=== PATIENT | male | born 1980 | race Two or more races ===

== ENCOUNTER 2021-01-21 12:21 | Inpatient (IN) | payer OTHER, SELFPAY ==
[2021-01-21] VITALS (8 sets, daily range): BP systolic 112–148; BP diastolic 72–83; PULSE 81–110; RESP 20–40; TEMP 36.8–38.8; O2SAT 90–94; BMI 33.5
--- NOTE | 2021-01-21 | ECG_ITS ---
Test Reason : chest pain Blood Pressure : / mmHG Vent. Rate : 088 BPM Atrial Rate : 088 BPM P-R Int : 162 ms QRS Dur : 088 ms QT Int : 370 ms P-R-T Axes : 032 003 022 degrees QTc Int : 447 ms Normal sinus rhythm Normal ECG When compared with ECG of 21-JAN-2021 15:35, No significant change was found Referred By: Olaf Aceves Electronically Signed By:ZARA MCKEON MD
--- NOTE | ~2021-01-21 | XR_ITS ---
EXAMINATION: XR CHEST CLINICAL INFORMATION: Chest pain COMPARISON: CT chest 01/21/2021 TECHNIQUE: Frontal view of the chest was obtained. FINDINGS: There is patchy groundglass density seen in bilateral midlung consistent with infiltrates. There is dense consolidation in the left lower lobe retrocardiac area. Heart size is borderline enlarged with normal pulmonary vascularity. No gross bony abnormality seen. XR/XR chest 1V IMPRESSION: Bilateral patchy groundglass infiltrates and dense left lower lobe consolidation.
--- NOTE | ~2021-01-21 | CT_ITS ---
EXAMINATION: CT ANGIOGRAM OF THE CHEST WITH AND WITHOUT CONTRAST (CT PULMONARY ANGIOGRAM FOR PE) CLINICAL INFORMATION: Reason for Exam SOB, hemoptysis, positive COVID COMPARISON: None TECHNIQUE: Prior to contrast administration, noncontrast localization images were obtained. Subsequently, multidetector volumetric imaging was performed from the thoracic inlet to below the diaphragms following the administration of 71 mL Omnipaque 350 intravenous contrast. No contrast reaction reported Sagittal, coronal, and MIP oblique sagittal reformatted images were obtained on the CT workstation, uploaded to PACS, and reviewed. This CT examination was performed using dose optimization techniques as appropriate, variously including the following: *Automated exposure control *Adjustment of mA and/or kV according to patient size (this includes techniques or standardized protocols for targeted exams where dose is matched to indication/reason for exam; i.e. extremities or head) *Use of iterative reconstruction technique Total exam dose-length product 468 mGy-cm FINDINGS: QUALITY OF STUDY/CONTRAST BOLUS: Satisfactory. PULMONARY ARTERIES: No central or segmental pulmonary emboli. THORACIC AORTA: No aneurysm or dissection. LUNG: The central airways are patent. Patchy groundglass opacities are seen throughout both lungs. There is a small left pleural effusion with a more dense consolidation in the left lower lobe. Associated air bronchograms are noted. There are trace loculated gas seen within the left pleural effusion. This is consistent with trace left-sided pneumothorax.. MEDIASTINUM: Normal heart size. No pericardial effusion. No hilar or mediastinal lymphadenopathy. No evidence of septal bowing or right heart strain. CHEST WALL/AXILLA: No axillary or internal mammary lymphadenopathy. OSSEOUS STRUCTURES: No acute or suspicious osseous abnormality. UPPER ABDOMEN: Low-attenuation of the liver suggests hepatic steatosis. No reflux of contrast into the hepatic veins to suggest elevated right heart pressures. CT/CT angio chest PE protocol IMPRESSION: No pulmonary embolism. Patchy groundglass opacities bilaterally are consistent with the clinical history of Covid. There is a more dense left lower lobe consolidation with associated pleural effusion. Trace pneumothorax on the left as well. This critical result was discussed with Jeffery Garcia NP by telephone at 01/21/2021 3:53 PM and it was ascertained that the content and urgency of the report was understood at the time of direct communication. VTE: negative
--- NOTE | 2021-01-21 12:44 | ED_ITS ---
HPI - SOB/Dyspnea General Chief Complaint: Dyspnea Stated Complaint: DIFF BREATHING Time Seen by Provider: 01/21/21 12:44 Source: patient Mode of arrival: wheelchair Limitations: no limitations History of Present Illness HPI Narrative: 40-year-old male who denies significant past medical or surgical history he presents via triage with his who reports on January 08 he got his 1st dose of pfizer COVID vaccine and on January 13 he was feeling unwell thinking that he might have the side effects from the COVID vaccine however symptoms continued and that day he got tested at the [facility] through the state [facility] spread program and tested positive for COVID-19 along with his spouse. States he has been progressively getting worsening in symptoms of fevers with body aches, chest pain, generalized weakness and some shortness of breath and he has been having sputum with streaks of red blood in it. Otherwise denies any abdominal pain, nausea, vomiting, diarrhea. MD elicited complaint: shortness of breath, cough and chest pain Pertinent past history: other (COVID-19) Onset (ago): day(s) Timing: progressively worsening Severity: severe Exacerbating factors: coughing and other (States he becomes very short of breath with walking) Relieving factors: nothing Associated symptoms: chest pain, pain with inspiration (States he gets pain on the left-sided chest with inspiration) and cough Treatment prior to arrival: other (OTC Tylenol/Motrin last took Motrin this morning) Related Data Home Medications Medication Instructions Recorded Confirmed trazodone 50 - 100 mg PO BEDTIME PRN 01/21/21 01/21/21 Allergies Allergy/AdvReac Type Severity Reaction Status Date / Time tree nut [TREE NUT] Allergy Severe ANAPHYLAXIS Unverified 07/09/20 15:43 [facility] Past Medical History Medical History (Updated 01/21/21 @ 16:29 by Jeffery Garcia NP) No known health problems Social History Social History Smoking Status: Never smoker Use of substances other than those prescribed or required for medical reasons: No Advance Directives: No Advance Directives Information Provided: No Physical Exam Vital Signs: Vital Signs: Last Vital Signs Temp 98.2 F 01/21/21 15:37 Pulse 97 01/21/21 15:37 Resp 30 H 01/21/21 15:37 BP 138/79 01/21/21 15:37 Pulse Ox 92 01/21/21 15:37 Body Mass Index 33.5 Reviewed Const: General: acute distress and ill appearing Nutritional Appearance: overweight Orientation/consciousness: patient oriented x3 HENMT: Head: Yes normal to inspection Ears: hearing grossly normal bilaterally Eyes: General: appearance normal, both eyes and all related structures Visual [place]am[place]: normal visual salamanca by confrontation Neck: Neck: Yes normal visual inspection, No positive Brudzinski's sign, No positive Kernig's sign and No tender Thyroid: Thyroid normal Chest: Chest palpation & inspection: normal inspection of the chest Resp: Effort & Inspection: normal respiratory effort Auscultation: wheezes (Mild forced expiratory) left lower Cardio: Jugular venous distension: no JVD Rate: tachycardic (113) GI: Inspection: Yes normal to inspection Palpation (GI): Soft to palpation Percussion: Yes normal to percussion Auscultation: normal bowel sounds : General: Yes no CVA tenderness Back/Spine/Pelvis: Back: no CVA tenderness Skin: General skin exam: no rashes or lesions noted Neuro: General: patient oriented x3 Extrem: General: Yes normal to inspection Course Course Course Narrative: Review otherwise healthy 40-year-old male denies significant past medical history presenting with shortness of breath/chest pain with hemoptysis described as string like blood in his sputum mostly. He is positive COVID already. Will check labs including COVID certification and CT of the chest rule out pulmonary embolism/infectious pathology. Will treat with albuterol, steroids and symptomatic pain management. He is febrile will treat with Tylenol 975 p.o.. Known COVID, lactic acid blood cultures ordered as well. On room air is at 90% Perks up to 92% on 4 L. Reevaluation(s) Reevaluation #1: Intermittent left-sided chest pain worsening with position and cough his D-dimer is marginal, troponin negative, EKG nondiagnostic. His COVID markers are elevated CTA is pending. Reevaluation #2: Call from [facility] with CT A PE reading No pulmonary embolism. Patchy groundglass opacities bilaterally are consistent with the clinical history of Covid. There is a more dense left lower lobe consolidation with associated pleural effusion. Trace pneumothorax on the left as well. Given these findings case was discussed with weigher and grader Dr. Valle recommended steroids, remdesivir and antibiotic and he will see the patient but recommends admission to hospitalist services and at this time does not warrant ICU admissi on. Consultations Consultation #1: [facility]: No PE, diffuse consolidation consistent with COVID small left pleural effusion as well as small pneumo. Consultation #2: [facility]im Stretching Machine Operator Dr. Valle Consultation #3: Hospitalist Dr. Guido MDM - SOB/Dyspnea Medical Records Attestation: I reviewed the patient's medical records. Lab Data Attestation: I reviewed the patient's lab results. Result diagrams: 01/21/21 13:11 01/21/21 13:11 Labs: Lab Results 01/21/21 01/21/21 01/21/21 Range/Units 13:11 13:11 13:11 WBC 9.3 (4.8-10.8) X10*3/uL RBC 5.34 (4.60-5.80) X10*6/uL Hgb 14.9 (14.0-18.0) g/dl Hct 44.4 (42-52) % MCV 83.1 (80-98) fL MCH 27.9 (27.0-33.0) pg MCHC 33.6 (31.0-36.0) g/dl RDW 12.3 (11.0-16.0) % Plt Count 259 (160-400) X10*3/uL MPV 10.0 (9.4-12.4) fL Immature Gran % (Auto) 0.5 H (0.0-0.4) % Neut % (Auto) 88.2 H (45-73) % Lymph % (Auto) 8.1 L (20-40) % [place] % (Auto) 3.1 (2-11) % Eos % (Auto) 0.0 (0-4) % Baso % (Auto) 0.1 (0-2) % Lymph # (Auto) 0.8 L (1.2-4.9) X10*3/uL [place] # (Auto) 0.3 (0.1-1.2) X10*3/uL Eos # (Auto) 0.0 (0.0-0.4) X10*3/uL Baso # (Auto) 0.0 (0.0-0.2) X10*3/uL Abs Immat Gran (auto) 0.05 H (0.00-0.03) X10*3/uL Absolute Neuts (auto) 8.2 (2.0-8.3) X10*3/uL Absolute Nucleated RBC 0.000 (0.0-0.012) X10*3/uL Nucleated RBC % (auto) 0.0 (0.0-0.2) /100WBC PT 15.7 H (10.8-13.0) SEC INR 1.3 H (0.9-1.1) APTT 32.1 (24.1-38.0) SEC D-Dimer 584 NG/ML Sodium 134 L (135-145) mmol/L Potassium 4.6 (3.3-5.1) mmol/L Chloride 92 L (96-108) mmol/L Carbon Dioxide 28 (22-29) mmol/L Anion Gap 19 (12-20) BUN 14 (9-16) mg/dL Creatinine 0.83 (0.5-1.4) mg/dL Estim Creat Clear Calc 145.4 Estimated GFR > 60 Random Glucose 297 H (60-115) mg/dL Lactic Acid (0.5-2.0) mmol/L Calcium 8.5 (8.4-10.2) mg/dL Ferritin 3552 H (20-250) ng/mL Total Bilirubin 0.5 (0.0-1.0) mg/dL AST 36 (5-37) U/L ALT 38 (0-40) U/L Alkaline Phosphatase 61 (39-117) U/L Lactate Dehydrogenase 438 H (118-273) U/L Troponin I High Sens (<3.5-35.0) ng/L C-Reactive Protein 25.68 H (< or = 0.50) mg/dL B-Natriuretic Peptide (<100) pg/mL Total Protein 7.1 (6.5-8.0) g/dL Albumin 3.7 (3.5-5.0) g/dL Procalcitonin ng/mL 01/21/21 01/21/21 01/21/21 Range/Units 13:11 13:11 13:11 WBC (4.8-10.8) X10*3/uL RBC (4.60-5.80) X10*6/uL Hgb (14.0-18.0) g/dl Hct (42-52) % MCV (80-98) fL MCH (27.0-33.0) pg MCHC (31.0-36.0) g/dl RDW (11.0-16.0) % Plt Count (160-400) X10*3/uL MPV (9.4-12.4) fL Immature Gran % (Auto) (0.0-0.4) % Neut % (Auto) (45-73) % Lymph % (Auto) (20-40) % [place] % (Auto) (2-11) % Eos % (Auto) (0-4) % Baso % (Auto) (0-2) % Lymph # (Auto) (1.2-4.9) X10*3/uL [place] # (Auto) (0.1-1.2) X10*3/uL Eos # (Auto) (0.0-0.4) X10*3/uL Baso # (Auto) (0.0-0.2) X10*3/uL Abs Immat Gran (auto) (0.00-0.03) X10*3/uL Absolute Neuts (auto) (2.0-8.3) X10*3/uL Absolute Nucleated RBC (0.0-0.012) X10*3/uL Nucleated RBC % (auto) (0.0-0.2) /100WBC PT (10.8-13.0) SEC INR (0.9-1.1) APTT (24.1-38.0) SEC D-Dimer NG/ML Sodium (135-145) mmol/L Potassium (3.3-5.1) mmol/L Chloride (96-108) mmol/L Carbon Dioxide (22-29) mmol/L Anion Gap (12-20) BUN (9-16) mg/dL Creatinine (0.5-1.4) mg/dL Estim Creat Clear Calc Estimated GFR Random Glucose (60-115) mg/dL Lactic Acid 1.9 (0.5-2.0) mmol/L Calcium (8.4-10.2) mg/dL Ferritin (20-250) ng/mL Total Bilirubin (0.0-1.0) mg/dL AST (5-37) U/L ALT (0-40) U/L Alkaline Phosphatase (39-117) U/L Lactate Dehydrogenase (118-273) U/L Troponin I High Sens 3.6 (<3.5-35.0) ng/L C-Reactive Protein (< or = 0.50) mg/dL B-Natriuretic Peptide < 10 (<100) pg/mL Total Protein (6.5-8.0) g/dL Albumin (3.5-5.0) g/dL Procalcitonin 1.71 ng/mL ECG Data Interpretation: EKG 1. Sinus tachycardia Rate 113 Possible Left atrial enlargement Left ventricular hypertrophy Inferior infarct , age undetermined Abnormal ECG No previous ECGs available EKG 2. Normal sinus rhythm Rate 98 LAE AR interval 152 QT/QTC 358 or [address] segment changes No significant change from previous Discharge Plan Discharge Clinical Impression: COVID-19, Pleural effusion, Pneumothorax Patient Disposition: Admitted As Inpatient Prescriptions: No Action trazodone 100 mg Tablet 50 - 100 mg PO BEDTIME PRN (Reason: Insomnia) RF: 0
--- NOTE | 2021-01-21 13:02 | ECG_ITS ---
Test Reason : DYSPNEA Blood Pressure : / mmHG Vent. Rate : 113 BPM Atrial Rate : 113 BPM P-R Int : 152 ms QRS Dur : 078 ms QT Int : 336 ms P-R-T Axes : 034 -08 027 degrees QTc Int : 460 ms Sinus tachycardia Possible Left atrial enlargement Left ventricular hypertrophy Inferior infarct , age undetermined Abnormal ECG No previous ECGs available Referred By: Jeffery Garcia Electronically Signed By:ZARA MCKEON MD
[2021-01-21 13:18] LABS: MANUAL DIFF FLAG NO
[2021-01-21 13:20] LABS: Basophils Percent Auto 0.1 % (0-2); Hematocrit 44.4 % (42-52); Hemoglobin 14.9 g/dl (14.0-18.0); Imm Gran Abs Auto 0.05 X10*3/uL (0.00-0.03); Imm Gran Pct Auto 0.5 % (0.0-0.4); Lymphocytes Absolute Auto 0.8 X10*3/uL (1.2-4.9); Lymphocytes Percent Auto 8.1 % (20-40); Mean Corpuscular HGB Conc 33.6 g/dl (31.0-36.0); Mean Corpuscular Hemoglobin 27.9 pg (27.0-33.0); Mean Corpuscular Volume 83.1 fL (80-98); Monocytes Absolute Auto 0.3 X10*3/uL (0.1-1.2); Monocytes Percent Auto 3.1 % (2-11); Neutrophils Absolute Auto 8.2 X10*3/uL (2.0-8.3); Neutrophils Percent Auto 88.2 % (45-73); Platelet Count 259 X10*3/uL (160-400); Red Blood Count 5.34 X10*6/uL (4.60-5.80); Red Cell Distribution Width 12.3 % (11.0-16.0); White Blood Count 9.3 X10*3/uL (4.8-10.8)
[2021-01-21 13:25] LABS: INTERNATIONAL NORM RATIO 1.3 (0.9-1.1); Prothrombin Time 15.7 SEC (10.8-13.0)
[2021-01-21 13:28] LABS: D Dimer 584 NG/ML; Partial Thromboplastin Time 32.1 SEC (24.1-38.0)
[2021-01-21] MEDS: Acetaminophen 325 MG TABLET 975 MG PO (13:31)
[2021-01-21] MEDS: 0.9 % Sodium Chloride 500 ML IV (13:32)
[2021-01-21 13:52] LABS: Lactic Acid 1.9 mmol/L (0.5-2.0)
[2021-01-21 13:59] LABS: Alanine Aminotransferase 38 U/L (0-40); Albumin Level 3.7 g/dL (3.5-5.0); Alkaline Phosphatase 61 U/L (39-117); Anion Gap 19 (12-20); Aspartate Amino Transferase 36 U/L (5-37); B Type Natriuretic Peptide < 10 pg/mL (<100); Bilirubin Total 0.5 mg/dL (0.0-1.0); Blood Urea Nitrogen 14 mg/dL (9-16); C Reactive Protein 25.68 mg/dL (< or = 0.50); Calcium 8.5 mg/dL (8.4-10.2); Carbon Dioxide 28 mmol/L (22-29); Chloride 92 mmol/L (96-108); Creatinine Clr Calc Pharmacy 145.4; Estimated Glomerular Filt Rate > 60; Glucose Random 297 mg/dL (60-115); Lactate Dehydrogenase 438 U/L (118-273); Potassium 4.6 mmol/L (3.3-5.1); Sodium 134 mmol/L (135-145); Total Protein 7.1 g/dL (6.5-8.0); Troponin-I High Sensitivity 3.6 ng/L (<3.5-35.0)
[2021-01-21 14:25] LABS: Procalcitonin 1.71 ng/mL
[2021-01-21 15:00] LABS: Ferritin 3552 ng/mL (20-250)
[2021-01-21] MEDS: iohexoL 350 MG/ML 75 ML INFUS..BTL IV (15:24)
--- NOTE | 2021-01-21 15:39 | ECG_ITS ---
Test Reason : DYSPNEA Blood Pressure : / mmHG Vent. Rate : 098 BPM Atrial Rate : 098 BPM P-R Int : 152 ms QRS Dur : 084 ms QT Int : 358 ms P-R-T Axes : 040 006 031 degrees QTc Int : 457 ms Normal sinus rhythm Possible Left atrial enlargement Possible Inferior infarct (cited on or before 21-JAN-2021) Abnormal ECG When compared with ECG of 21-JAN-2021 13:23, No significant change was found Referred By: Olaf Aceves Electronically Signed By:ZARA MCKEON MD
--- NOTE | 2021-01-21 15:39 | PC.NURSE ---
pt back from ct, reports sever/stabbing pain in the left upper abd area/chest area, pain comes and goes, vs stable at this time, bp 138/79, hr 100, sating at 90-92% on 3l, repeated ekg obtained
[2021-01-21] MEDS: cefTRIAXone sodium 1 GM in 0.9 % Sodium Chloride 50 ML IV (16:36)
[2021-01-21] MEDS: ondansetron HCL 4 MG/2 ML VIAL IVPUSH (16:36)
[2021-01-21] MEDS: dexAMETHasone sod phosphate 4 MG/ML VIAL 6 MG IVPUSH (16:36)
[2021-01-21] MEDS: Morphine Sulfate 4 MG/ML CARTRIDGE IVPUSH (16:37)
--- NOTE | 2021-01-21 17:55 | PM.IMHP ---
History of Present Illness Date of Service: 01/21/21 Chief Complaint: Shortness of breath due to COVID pneumonia. 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 Poor appetite. Patient said that he had Pfizer vaccine 1st dose on . 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 He has cough with some blood in it sputum aldana. Having fever from last 2-3 days, sweating for seem duration. Denies any abdominal pain or nausea or vomiting or diarrhea or any focal weakness or numbness. In the emergency room patient-found to have hypoxic and as per ED physician put on oxygen-breathing he says now slightly better, But still has pleuritic discomfort and cough as well as fever. Patient found to have fever of 101.8*f , tachycardic and tachypneic, has lymphopenia as well as elevated ferritin, LDH, C-reactive protein. CTA chest shows: Patchy ground-glass opacities consistent says with the COVID has trace pneumothorax on the left side as well. Also left side consolidation at the base with pleural effusion. In ED: Received Dexamethasone, ceftriaxone azithromycin . 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 Social history: No alcohol or smoking or recreation drug use. Review of Systems Review of Systems: Constitutional: Not in acute distress seems slightly anxious. Respiratory: Has short of breath and cough Cardiovascular: No palpitation or chest pain Abdominal: No nausea or vomiting or abdominal pain . Neuro aldana: No weakness or numbness No fever or chills Skin aldana: No rash or erythema. HEENT: No vision changes or any eye pain or discharge. Please also see HPI. [facility] Medical History Nightmare No known health problems Functional capacity: independent ambulation Social History Household Members: Significant Other Housing: House Smoking Status: Never smoker service: Yes Current occupational status: employed Meds Allergies Allergy/AdvReac Type Severity Reaction Status Date / Time tree nut [TREE NUT] Allergy Severe ANAPHYLAXIS Unverified 07/09/20 15:43 Active Medications: Current Medications Generic Name Dose Route Start Last Admin Trade Name Freq PRN Reason Stop Dose Admin Acetaminophen 650 mg 01/21/21 17:48 Acetaminophen 325 Mg Tablet PO Q6H PRN Pain, Mild (Pain Scale 1-3) Dexamethasone Sodium Phosphate 6 mg 01/22/21 09:00 Dexamethasone Sod Phosphate 4 Mg/Ml Vial IVPUSH DAILY [facility] Famotidine 20 mg 01/22/21 09:00 Famotidine 20 Mg Tablet PO DAILY [facility] Azithromycin 500 mg/ Sodium 250 mls @ 125 mls/hr 01/21/21 17:15 Chloride IV 01/21/21 19:14 ONCE ONE Sodium Chloride 3 ml 01/22/21 00:00 0.9 % Sodium Chloride Flush [address] M[address]ringe IVFLUSH QSHIFT [facility] Trazodone HCl 50 - 100 mg 01/21/21 17:48 Trazodone Hcl 100 Mg Tablet PO BEDTIME PRN Insomnia Home Medications Medication Instructions Recorded Confirmed Last Taken Type trazodone 50 - 100 mg PO BEDTIME PRN 01/21/21 01/21/21 Unknown History Physical Exam Vital Signs and Narrative: Vital Signs: Last Vital Signs Temp 98.2 F 01/21/21 15:37 Pulse 97 01/21/21 15:37 Resp 30 H 01/21/21 15:37 BP 138/79 01/21/21 15:37 Pulse Ox 92 01/21/21 15:37 Body Mass Index 33.5 Physical exam: Constitutional: Noted acute distress, somewhat short of breath. Still able to answer most of the questions Cvs: rrr, [id number] , no murmur res: Grossly fair air entry, diminished at bases left is more than right. No rales or wheezing. abd: no rebound or guarding ,nt, bs present. ext pulses present , no cyanosis neuro: axo3 , nonfocal. Results Labs CBC and Chem 7: 01/26/21 05:28 01/26/21 05:28 Labs: Laboratory Results - last 24 hr 01/21/21 01/21/21 01/21/21 13:11 13:11 13:11 MCV 83.1 MCH 27.9 MCHC 33.6 RDW 12.3 Plt Count 259 MPV 10.0 Immature Gran % (Auto) 0.5 H Neut % (Auto) 88.2 H Lymph % (Auto) 8.1 L [place] % (Auto) 3.1 Eos % (Auto) 0.0 Baso % (Auto) 0.1 Lymph # (Auto) 0.8 L [place] # (Auto) 0.3 Eos # (Auto) 0.0 Baso # (Auto) 0.0 Abs Immat Gran (auto) 0.05 H Absolute Neuts (auto) 8.2 Absolute Nucleated RBC 0.000 Nucleated RBC % (auto) 0.0 PT 15.7 H INR 1.3 H APTT 32.1 D-Dimer 584 Anion Gap 19 Estim Creat Clear Calc 145.4 Estimated GFR > 60 Random Glucose 297 H Lactic Acid Calcium 8.5 Ferritin 3552 H Total Bilirubin 0.5 AST 36 ALT 38 Alkaline Phosphatase 61 Lactate Dehydrogenase 438 H Troponin I High Sens C-Reactive Protein 25.68 H B-Natriuretic Peptide Total Protein 7.1 Albumin 3.7 Procalcitonin 01/21/21 01/21/21 01/21/21 13:11 13:11 13:11 MCV MCH MCHC RDW Plt Count MPV Immature Gran % (Auto) Neut % (Auto) Lymph % (Auto) [place] % (Auto) Eos % (Auto) Baso % (Auto) Lymph # (Auto) [place] # (Auto) Eos # (Auto) Baso # (Auto) Abs Immat Gran (auto) Absolute Neuts (auto) Absolute Nucleated RBC Nucleated RBC % (auto) PT INR APTT D-Dimer Anion Gap Estim Creat Clear Calc Estimated GFR Random Glucose Lactic Acid 1.9 Calcium Ferritin Total Bilirubin AST ALT Alkaline Phosphatase Lactate Dehydrogenase Troponin I High Sens 3.6 C-Reactive Protein B-Natriuretic Peptide < 10 Total Protein Albumin Procalcitonin 1.71 Imaging Radiologist's Impressions: Impressions Chest CTA 01/21/21 13:01 IMPRESSION: No pulmonary embolism. Patchy groundglass opacities bilaterally are consistent with the clinical history of Covid. There is a more dense left lower lobe consolidation with associated pleural effusion. Trace pneumothorax on the left as well. This critical result was discussed with Jeffery Garcia NP by telephone at 01/21/2021 3:53 PM and it was ascertained that the content and urgency of the report was understood at the time of direct communication. VTE: negative Assessment and Plan (1) COVID-19: Status: Acute (2) Pleural effusion: Status: Acute (3) Pneumothorax: Qualifiers: Pneumothorax type: unspecified pneumothorax Qualified Code(s): J93.9 - Pneumothorax, unspecified Status: Acute 1. Acute hypoxemic respiratory failure-secondary to COVID/also has viral sepsis. Continue oxygen support, dexamethasone, id and Pulmonary evaluation since patient has respiratory failure/pneumothorax trace. Blood cultures are pending as well as procalcitonin level Patient was given antibiotic as per ED because patient has dense consolidation in the left lower base with some effusion. Will order CBC BMP and COVID labs for the morning. Evaluation for remdesivir as per ID. 2. Mild hyponatremia: Probably related to poor oral intake oral intake. Diet order and encouraged to eat. Continue to monitor 3. Nightmares: Continue trazodone. DVT prophylaxis with SCDs since patient has hemoptysis intermittent. Patient is full code. (4) Diabetes mellitus, new onset: Status: Acute
[2021-01-21] MEDS: guaiFENesin 100 MG/5 ML LIQUID PO (18:13)
[2021-01-21] MEDS: Azithromycin 500 MG in 0.9 % Sodium Chloride 250 ML 125 MG IV (18:13)
--- NOTE | 2021-01-21 20:34 | PC.NURSE ---
WAITING ON PHARMACY TO BRING REMDESIVIR, NO TECH.
[2021-01-21 21:17] LABS: Appearance Urine CLEAR; Color Urine YELLOW; Glucose Urine UA 500 MG/DL (NEG); Leukocyte Esterase Urine NEG (NEG); Nitrite Urine NEG (NEG); Specific Gravity - Urine 1.025 (1.005-1.025); Urine Blood TRACE (NEG); Urine Ketones >=80 MG/DL (NEG); Urine Protein 2+ MG/DL (NEG-TRACE)
[2021-01-21 21:23] LABS: Bacteria Urine TRACE /LPF; RBC Urine 0 /HPF (0); WBC Urine 0 /HPF (0-4)
[2021-01-21] MEDS: Morphine Sulfate 2 MG/ML CARTRIDGE 1 MG IVPUSH (21:40)
[2021-01-21 21:47] LABS: C Reactive Protein 27.24 mg/dL (< or = 0.50)
--- NOTE | 2021-01-21 21:49 | PM.EVENT ---
Event Note Date of Service: 01/21/21 Event Note: RAPID RESPONSE NOTE: MILL TENDER SECOND OPERATOR WAS CALLED IN AROUND 9:30 P.M. reporting patient had acute chest pain. I went in to examine the patient patient noted to have less sided chest wall pain, reproducible in nature, sharp in nature, vitals stable, saturating at 94%. Breathing comfortably. EKG nonischemic. CT chest showed no evidence of pulmonary embolism but noted COVID pneumonia. Also noted trace left-sided pneumothorax. ICU made aware. Will follow-up with chest x-ray. Patient currently clinically appears stable will continue to monitor. Lidoderm patch for reproducible chest pain. Patient was given morphine. Troponins
[2021-01-21] MEDS: Remdesivir 200 MG in 0.9 % Sodium Chloride 210 ML 105 MG IV (22:31)
[2021-01-22] VITALS (8 sets, daily range): BP systolic 128–144; BP diastolic 73–85; PULSE 71–96; RESP 18–43; TEMP 36–37; O2SAT 88–93; BMI 33.4
[2021-01-22] MEDS: HYDROmorphone HCl 0.5 MG/0.5 ML SYRINGE IVPUSH ×7 (00:10→23:07)
[2021-01-22 00:25] LABS: Troponin-I High Sensitivity 3.5 ng/L (<3.5-35.0)
[2021-01-22] MEDS: 0.9 % Sodium Chloride Flush 3 ML SYRINGE IVFLUSH ×4 (01:07→20:18)
--- NOTE | 2021-01-22 06:36 | MHC.PIE ---
late entry for 2129. p - pt arrived to rm 475 for admission to [facility] via stretcher clutching his Left side of chest yelling in pain states L sided pain constant not reproducible with palpation no radiation.vss color wnl/desai i - rapid response called immediately - vss (see graphics) team arrived at 2132 including Nicolette Acosta RN supv, Dr. Mcmillan, Driss meade RN ANGIOGRAPHY pt kept on stretcher and morphine 1mg iv given @ 2139 with slow gradual relief, 12 lead ekg done as ordered on stretcher - reviewed by Dr. Aceves with no concerns. stat pcxr done on stretcher as well. by 2204 pt transferred via stretch by 3 assist with slider to bed - pt reports relief 2/10 comes & goes worse with position changes. admitted & oriented to call bella, bed & surroundings & care plan. po fluids given & urinal with instructions to maintain bedrest this pm pain control reviewed & pt's goal of pain is 3 or 4/10. eyes closed & resting between questions. pt calm and resting upon exiting room. pain plan written on communication board as to when pain med is due next & pt verbalizes understanding. very thirsty, drinking whole pitcher of braden minoo & replaced. e - will continue to monitor
[2021-01-22 06:49] LABS: Hematocrit 39.5 % (42-52); Hemoglobin 13.1 g/dl (14.0-18.0); Mean Corpuscular HGB Conc 33.2 g/dl (31.0-36.0); Mean Corpuscular Hemoglobin 27.8 pg (27.0-33.0); Mean Corpuscular Volume 83.7 fL (80-98); Mean Platelet Volume 10.3 fL (9.4-12.4); Platelet Count 280 X10*3/uL (160-400); Red Blood Count 4.72 X10*6/uL (4.60-5.80); Red Cell Distribution Width 12.4 % (11.0-16.0); White Blood Count 9.2 X10*3/uL (4.8-10.8)
--- NOTE | 2021-01-22 06:52 | PC.NURSE ---
addendum: reported pcxr results to Dr. Aceves
[2021-01-22 07:31] LABS: Anion Gap 18 (12-20); Blood Urea Nitrogen 13 mg/dL (9-16); C Reactive Protein 29.21 mg/dL (< or = 0.50); Calcium 7.7 mg/dL (8.4-10.2); Carbon Dioxide 25 mmol/L (22-29); Chloride 95 mmol/L (96-108); Creatinine Clr Calc Pharmacy 160.9; Estimated Glomerular Filt Rate > 60; Glucose Random 307 mg/dL (60-115); Potassium 4.3 mmol/L (3.3-5.1); Sodium 134 mmol/L (135-145)
[2021-01-22] MEDS: Famotidine 20 MG TABLET PO (08:28)
[2021-01-22] MEDS: dexAMETHasone sod phosphate 4 MG/ML VIAL 6 MG IVPUSH (08:29)
[2021-01-22] MEDS: Lidocaine 4 % Patch ADH..PATCH 1 PATCH TRANSDERMA (08:29)
[2021-01-22 08:31] LABS: Ferritin 2871 ng/mL (20-250)
--- NOTE | 2021-01-22 09:58 | MHC.CM.PN ---
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 Patient does not have a HCP, CM assisted patient is filling one out, copy placed on file. Discussed discharge plan, home no services. [facility] will provide transportation. [facility] will continue to follow patient for discharge needs.
--- NOTE | 2021-01-22 13:21 | HO.PM.IMPN ---
Subjective Subjective Date of Service: 01/22/21 Interval History: seen for acute hypoxic respriatory failure d/t covid PNA, not doing well with persitent hypoxia and high oxygen requirement Review of Systems Gen: no fever Resp: + sob, no cough CV: no chest, no MORENO, no leg edema GI: No n/v, no abd pain Neuro: No confusion Physical Exam Vital Signs: Vital Signs: Last Vital Signs Temp 97.6 F 01/22/21 10:54 Pulse 77 01/22/21 10:54 Resp 42 H 01/22/21 10:54 BP 131/81 01/22/21 10:54 Pulse Ox 93 01/22/21 10:54 Body Mass Index 33.4 General: AO X 3, no acute distress Resp: mild resp distresss, no auscultation d/t covid CVS: reglar on monitor, no leg edema GI: +BS, NT Skin: No rash Neuro: motor grossly intact Psych: appropriate affect Objective Data Current Medications Generic Name Dose Route Start Last Admin Trade Name Benjyq PRN Reason Stop Dose Admin Acetaminophen 650 mg 01/21/21 17:48 Acetaminophen 325 Mg Tablet PO Q6H PRN Pain, Mild (Pain Scale 1-3) Dexamethasone Sodium Phosphate 6 mg 01/22/21 09:00 01/22/21 08:29 Dexamethasone Sod Phosphate 4 Mg/Ml Vial IVPUSH 6 mg DAILY NANCI Administration Famotidine 20 mg 01/22/21 09:00 01/22/21 08:28 Famotidine 20 Mg Tablet PO 20 mg DAILY NANCI Administration Hydromorphone HCl 0.5 mg 01/21/21 21:53 01/22/21 13:07 Hydromorphone Hcl 0.5 Mg/0.5 Ml Syringe IVPUSH 0.5 mg Q4H PRN Administration Breakthrough Pain Ceftriaxone Sodium 1 gm/ 50 mls @ 100 mls/hr 01/22/21 17:00 Sodium Chloride IV Q24H NANCI Azithromycin 500 mg/ Sodium 250 mls @ 125 mls/hr 01/22/21 18:00 Chloride IV DAILY@1800 NANCI Remdesivir 100 mg/ Sodium 230 mls @ 115 mls/hr 01/22/21 20:00 Chloride IV 01/25/21 21:59 Q24H NANCI Lidocaine 1 patch 01/22/21 09:00 01/22/21 08:29 Lidocaine 4 % Patch Adh..Patch TRANSDERMA 1 patch DAILY NNACI Administration Protocol Sodium Chloride 3 ml 01/22/21 00:00 01/22/21 08:29 0.9 % Sodium Chloride Flush 3 Ml Syringe IVFLUSH 3 ml QSHIFT NANCI Administration Trazodone HCl 50 - 100 mg 01/21/21 17:48 Trazodone Hcl 100 Mg Tablet PO BEDTIME PRN Insomnia Labs CBC & Chem 7: 01/22/21 05:41 01/22/21 05:41 Assessment and Plan (1) COVID-19: Status: Acute (2) Pleural effusion: Status: Acute (3) Pneumothorax: Status: Acute Assessment and Plan: 1. Acute hypoxemic respiratory failure-secondary to COVID with viral sepsis. Continue oxygen support, dexamethasone, id and Pulmonary evaluation since patient has respiratory failure/pneumothorax trace. Blood cultures are pending a Patient was given antibiotic as per ED because patient has dense consolidation in the left lower base with some effusion with effusion, request thoracentesisi Remdesevir D2 2. Mild hyponatremia: 134, mild, observe 3. Continue trazodone at bedtime for nightmare DVT prophylaxis with SCDs since patient has hemoptysis intermittent. Patient is full code.
--- NOTE | 2021-01-22 15:13 | PC.NURSE ---
1400 increased SOB on slight exertion. Enc to eat slowly. Resp 32-36 HOB elevated. Medicated with dilaudid with some eff.
--- NOTE | 2021-01-22 17:03 | P.CONPL_ITS ---
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 He also has had small volume hemoptysis describes as streaks of blood in sputum with coughing. On ER evaluation patient was COVID-[address] chest de monstrated small amount of pneumomediastinum, small left pneumothorax, diffuse bilateral ground-glass opacities with left-sided pleural effusion and left basilar dense infiltrate. He has been started on coverage for community- acquired pneumonia, dexamethasone, and remdesivir and admitted to inpatient service. Review of Systems Constitutional: Constitutional: Denies daytime sleepiness, Denies excessive sweating, Reports fatigue, Reports fever(s), Denies lethargy, Reports malaise, Denies night sweats, Denies snoring and Denies weight loss Eyes: Eyes: Denies blurry vision and Denies itchy eyes ENT: Denies nasal congestion, Denies post nasal drip, Denies sinus pain, Denies sinus pressure and Denies other ( Thrush) Cardiovascular: Cardiovascular: Denies chest pain, Denies pedal edema, Reports dyspnea, Denies orthopnea and Denies paroxysmal nocturnal dyspnea Respiratory: Respiratory: Reports cough, Denies hemoptysis, Denies excessive phlegm production, Reports dyspnea, Denies snoring, Denies wheezing and Reports other (Streaks of blood in sputum with coughing) Gastrointestinal: Gastrointestinal: Denies abdominal pain and Denies heartburn Musculoskeletal: Musculoskeletal: Denies myalgias, Denies arthralgias and Denies joint swelling Integumentary/Breasts: Skin/Breast: Denies rash Neurologic: Denies memory loss and Denies seizure-like activity Psychiatric: Psychiatric: Denies abnormal sleep pattern, Denies anxiety and Denies memory loss Endocrine: Endocrine: Denies excessive sweating, Reports fatigue and Denies heat intolerance Hematologic/Lymphatic: Hematologic/Lymphatic: Denies easy bruising Allergic/Immunologic: Allergic/Immunologic: Denies itchy eyes, Denies seasonal rhinorrhea and Denies wheezing [facility] Past Medical History Medical History Nightmare No known health problems Functional capacity: independent ambulation Social History Social History Household Members: Significant Other Housing: House Do you presently have visiting nurse or other home services: No Smoking Status: Never smoker Use of substances other than those prescribed or required for medical reasons: No Currently Displaying Signs/Symptoms of Drug Intoxication Withdrawal: No Have you been hit, kicked, punched, or otherwise hurt by someone within the past year? If so, by whom?: No Do you feel safe in your current relationship?: No Is there a partner from a previous relationship who is making you feel unsafe now?: No Spiritual Healthcare Practices: none Advance Directives: No Advance Directives Information Provided: No Do you have thoughts of harming others: None Do you have a plan to hurt others: No Plan Recently lost weight without trying: Yes service: Yes Current occupational status: employed Meds Allergies Allergy/AdvReac Type Severity Reaction Status Date / Time tree nut [TREE NUT] Allergy Severe ANAPHYLAXIS Unverified 07/09/20 15:43 Active Medications: Current Medications Generic Name Dose Route Start Last Admin Trade Name Freq PRN Reason Stop Dose Admin Acetaminophen 650 mg 01/21/21 17:48 Acetaminophen 325 Mg Tablet PO Q6H PRN Pain, Mild (Pain Scale 1-3) Dexamethasone Sodium Phosphate 6 mg 01/22/21 09:00 01/22/21 08:29 Dexamethasone Sod Phosphate 4 Mg/Ml Vial IVPUSH 6 mg DAILY NANCI Administration Famotidine 20 mg 01/22/21 09:00 01/22/21 08:28 Famotidine 20 Mg Tablet PO 20 mg DAILY NANCI Administration Hydromorphone HCl 0.5 mg 01/21/21 21:53 01/22/21 13:07 Hydromorphone Hcl 0.5 Mg/0.5 Ml Syringe IVPUSH 0.5 mg Q4H PRN Administration Breakthrough Pain Ceftriaxone Sodium 1 gm/ 50 mls @ 100 mls/hr 01/22/21 17:00 Sodium Chloride IV Q24H NANCI Azithromycin 500 mg/ Sodium 250 mls @ 125 mls/hr 01/22/21 18:00 Chloride IV DAILY@1800 NANCI Remdesivir 100 mg/ Sodium 230 mls @ 115 mls/hr 01/22/21 20:00 Chloride IV 01/25/21 21:59 Q24H NANCI Lidocaine 1 patch 01/22/21 09:00 01/22/21 08:29 Lidocaine 4 % Patch Adh..Patch TRANSDERMA 1 patch DAILY NANCI Administration Protocol Sodium Chloride 3 ml 01/22/21 00:00 01/22/21 08:29 0.9 % Sodium Chloride Flush 3 Ml Syringe IVFLUSH 3 ml QSHIFT [facility] Administration Trazodone HCl 50 - 100 mg 01/21/21 17:48 Trazodone Hcl 100 Mg Tablet PO BEDTIME PRN Insomnia Home Medications Medication Instructions Recorded Confirmed Last Taken Type trazodone 50 - 100 mg PO BEDTIME PRN 01/21/21 01/21/21 Unknown History Physical Exam Vital Signs: Vital Signs: Last Vital Signs Temp 96.8 F 01/22/21 15:33 Pulse 71 01/22/21 15:33 Resp 22 H 01/22/21 15:33 BP 144/85 H 01/22/21 15:33 Pulse Ox 92 01/22/21 15:33 Body Mass Index 33.4 Const: General: no acute distress, alert and awake Eyes: Sclerae: sclerae normal EOM: EOMs intact bilaterally Neck: Neck: Yes no lymphadenopathy, Yes trachea midline and Yes supple Resp: Effort & Inspection: normal respiratory effort and no respiratory distress Auscultation: crackles (Diffuse bilateral crackles with poor movement at the left base) Cardio: Rate: regular rate Rhythm: regular rhythm Heart sounds: no gallops, no murmurs and no rubs GI: Palpation (GI): Soft to palpation and Other GI palpation findings present ( Nontender) Auscultation: normal bowel sounds Extrem: General: Yes no pedal edema, No clubbing and No cyanosis Results Laboratory Findings CBC and BMP: 01/22/21 05:41 01/22/21 05:41 ABG, PT/INR, D-dimer: PT/INR, D-dimer PT 15.7 SEC (10.8-13.0) H 01/21/21 13:11 INR 1.3 (0.9-1.1) H 01/21/21 13:11 D-Dimer 584 NG/ML 01/21/21 13:11 Abnormal lab findings: Abnormal Labs 01/21/21 01/21/21 01/21/21 13:11 13:11 13:11 Hgb Hct Immature Gran % (Auto) 0.5 H Neut % (Auto) 88.2 H Lymph % (Auto) 8.1 L Lymph # (Auto) 0.8 L Abs Immat Gran (auto) 0.05 H PT 15.7 H INR 1.3 H Sodium 134 L Chloride 92 L Random Glucose 297 H Calcium Ferritin 3552 H Lactate Dehydrogenase 438 H C-Reactive Protein 25.68 H Urine Protein Urine Glucose (UA) 01/21/21 01/21/21 01/22/21 21:08 21:08 05:41 Hgb 13.1 L Hct 39.5 L Immature Gran % (Auto) Neut % (Auto) Lymph % (Auto) Lymph # (Auto) Abs Immat Gran (auto) PT INR Sodium Chloride Random Glucose Calcium Ferritin Lactate Dehydrogenase C-Reactive Protein 27.24 H Urine Protein 2+ H Urine Glucose (UA) 500 H 01/22/21 05:41 Hgb Hct Immature Gran % (Auto) Neut % (Auto) Lymph % (Auto) Lymph # (Auto) Abs Immat Gran (auto) PT INR Sodium 134 L Chloride 95 L Random Glucose 307 H Calcium 7.7 L D Ferritin 2871 H Lactate Dehydrogenase C-Reactive Protein 29.21 H Urine Protein Urine Glucose (UA) Microbiology: Microbiology 01/21/21 13:27 Blood - Venous Blood Culture - Preliminary No growth after 24 hours. 01/21/21 13:11 Blood - Venous Blood Culture - Preliminary No growth after 24 hours. Assessment and Plan (1) Pneumothorax: Qualifiers: Pneumothorax type: unspecified pneumothorax Qualified Code(s): J93.9 - Pneumothorax, unspecified Status: Acute Impression: 40-year-old gentleman with acute hypoxic respiratory failure secondary to COVID-19 ARDS further complicated by left-sided pleural effusion and dense infiltrate which is likely a bacterial superinfection with a parapneumonic effusion. Recommendation: Agree with dexamethasone and remdesivir. Agree with community- acquired pneumonia antibiotic coverage. Would suggest left-sided diagnostic thoracentesis. (2) Pleural effusion: Status: Acute (3) Acute respiratory distress syndrome (ARDS) due to COVID-19 virus: Status: Acute (4) Acute and chronic respiratory failure with hypoxia: Status: Acute (5) Community acquired pneumonia: Status: Acute
[2021-01-22] MEDS: Azithromycin 500 MG in 0.9 % Sodium Chloride 250 ML 125 MG IV (17:27)
[2021-01-22] MEDS: cefTRIAXone sodium 1 GM in 0.9 % Sodium Chloride 50 ML IV (17:27)
[2021-01-22] MEDS: Remdesivir 100 MG in 0.9 % Sodium Chloride 230 ML 115 MG IV (20:17)
[2021-01-23] VITALS (9 sets, daily range): BP systolic 125–141; BP diastolic 74–90; PULSE 61–83; RESP 16–20; TEMP 36.3–37.2; O2SAT 90–95
[2021-01-23] MEDS: HYDROmorphone HCl 0.5 MG/0.5 ML SYRINGE IVPUSH ×5 (03:51→20:55)
[2021-01-23] MEDS: Acetaminophen 325 MG TABLET 650 MG PO (06:27)
[2021-01-23] MEDS: Famotidine 20 MG TABLET PO (08:26)
[2021-01-23] MEDS: Lidocaine 4 % Patch ADH..PATCH 1 PATCH TRANSDERMA (08:27)
[2021-01-23] MEDS: dexAMETHasone sod phosphate 4 MG/ML VIAL 6 MG IVPUSH (08:28)
[2021-01-23] MEDS: 0.9 % Sodium Chloride Flush 3 ML SYRINGE IVFLUSH ×3 (08:29→20:55)
--- NOTE | 2021-01-23 11:06 | HO.PM.IMPN ---
Subjective Subjective Date of Service: 01/23/21 Interval History: seen for acute hypoxic respriatory failure d/t covid PNA, has persistent hypoxia, pain with cough Review of Systems Gen: no fever Resp: + sob, + cough CV: no chest, no MORENO, no leg edema GI: No n/v, no abd pain Neuro: No confusion Physical Exam Vital Signs: Vital Signs: Last Vital Signs Temp 97.9 F 01/23/21 08:00 Pulse 78 01/23/21 08:00 Resp 20 01/23/21 08:00 BP 139/82 01/23/21 08:00 Pulse Ox 90 L 01/23/21 08:00 Body Mass Index 33.4 General: AO X 3, no acute distress Resp: no ausculation d/t covid, no accessory muscle use CVS: S1,S2, on monitor GI: +BS, NT, no distention Skin: No rash Neuro: motor grossly intact Psych: appropriate affect Objective Data Current Medications Generic Name Dose Route Start Last Admin Trade Name Freq PRN Reason Stop Dose Admin Acetaminophen 650 mg 01/21/21 17:48 01/23/21 06:27 Acetaminophen 325 Mg Tablet PO 650 mg Q6H PRN Administration Pain, Mild (Pain Scale 1-3) Dexamethasone Sodium Phosphate 6 mg 01/22/21 09:00 01/23/21 08:28 Dexamethasone Sod Phosphate 4 Mg/Ml Vial IVPUSH 6 mg DAILY NANCI Administration Famotidine 20 mg 01/22/21 09:00 01/23/21 08:26 Famotidine 20 Mg Tablet PO 20 mg DAILY NANCI Administration Hydromorphone HCl 0.5 mg 01/21/21 21:53 01/23/21 08:27 Hydromorphone Hcl 0.5 Mg/0.5 Ml Syringe IVPUSH 0.5 mg Q4H PRN Administration Breakthrough Pain Ceftriaxone Sodium 1 gm/ 50 mls @ 100 mls/hr 01/22/21 17:00 01/22/21 17:57 Sodium Chloride IV Infused Q24H NANCI Infusion Azithromycin 500 mg/ Sodium 250 mls @ 125 mls/hr 01/22/21 18:00 01/22/21 20:24 Chloride IV Infused DAILY@1800 NANCI Infusion Remdesivir 100 mg/ Sodium 230 mls @ 115 mls/hr 01/22/21 20:00 01/22/21 22:56 Chloride IV 01/25/21 21:59 Infused Q24H NANCI Infusion Lidocaine 1 patch 01/22/21 09:00 01/23/21 08:27 Lidocaine 4 % Patch Adh..Patch TRANSDERMA 1 patch DAILY NANCI Administration Protocol Sodium Chloride 3 ml 01/22/21 00:00 01/23/21 08:29 0.9 % Sodium Chloride Flush 3 Ml Syringe IVFLUSH 3 ml QSHIFT NANCI Administration Trazodone HCl 50 - 100 mg 01/21/21 17:48 Trazodone Hcl 100 Mg Tablet PO BEDTIME PRN Insomnia Labs CBC & Chem 7: 01/22/21 05:41 01/22/21 05:41 Microbiology Microbiology Results: Microbiology 01/21/21 13:27 Blood - Venous Blood Culture - Preliminary No growth after 24 hours. 01/21/21 13:11 Blood - Venous Blood Culture - Preliminary No growth after 24 hours. Assessment and Plan (1) COVID-19: Status: Acute (2) Pleural effusion: Status: Acute (3) Pneumothorax: Status: Acute Assessment and Plan: 1. Acute hypoxemic respiratory failure-secondary to COVID with viral sepsis. Continue oxygen support, dexamethasone, ID and pulmonary following Robitussin for cough Proning intermittently if tolerate Blood cultures are negative so far Empiric antibiotic for CAP, P. effusion reviewied by IR not enough fluid to tap 2. Mild hyponatremia: 134, mild, observe 3. Continue trazodone at bedtime for nightmare DVT prophylaxis with SCDs since patient has hemoptysis intermittent. Patient is full code.
[2021-01-23] MEDS: cefTRIAXone sodium 1 GM in 0.9 % Sodium Chloride 50 ML IV (18:05)
[2021-01-23] MEDS: Azithromycin 500 MG in 0.9 % Sodium Chloride 250 ML 125 MG IV (18:49)
[2021-01-23] MEDS: Remdesivir 100 MG in 0.9 % Sodium Chloride 230 ML 115 MG IV (20:55)
--- NOTE | 2021-01-23 22:55 | W.PM.IDCN ---
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 Review of Systems: Yes all other systems are reviewed and are negative PMFSH Past Medical History Medical History Nightmare No known health problems Functional capacity: independent ambulation Social History Social History Household Members: Significant Other Housing: House Do you presently have visiting nurse or other home services: No Smoking Status: Never smoker Use of substances other than those prescribed or required for medical reasons: No Currently Displaying Signs/Symptoms of Drug Intoxication Withdrawal: No Have you been hit, kicked, punched, or otherwise hurt by someone within the past year? If so, by whom?: No Do you feel safe in your current relationship?: No Is there a partner from a previous relationship who is making you feel unsafe now?: No Spiritual Healthcare Practices: none Advance Directives: No Advance Directives Information Provided: No Do you have thoughts of harming others: None Do you have a plan to hurt others: No Plan Recently lost weight without trying: Yes service: Yes Current occupational status: employed Meds Allergies Allergy/AdvReac Type Severity Reaction Status Date / Time tree nut [TREE NUT] Allergy Severe ANAPHYLAXIS Unverified 07/09/20 15:43 Active Medications: Current Medications Generic Name Dose Route Start Last Admin Trade Name Freq PRN Reason Stop Dose Admin Acetaminophen 650 mg 01/21/21 17:48 01/23/21 06:27 Acetaminophen 325 Mg Tablet PO 650 mg Q6H PRN Administration Pain, Mild (Pain Scale 1-3) Dexamethasone Sodium Phosphate 6 mg 01/22/21 09:00 01/23/21 08:28 Dexamethasone Sod Phosphate 4 Mg/Ml Vial IVPUSH 6 mg DAILY NANCI Administration Famotidine 20 mg 01/22/21 09:00 01/23/21 08:26 Famotidine 20 Mg Tablet PO 20 mg DAILY NANCI Administration Hydromorphone HCl 0.5 mg 01/21/21 21:53 01/23/21 20:55 Hydromorphone Hcl 0.5 Mg/0.5 Ml Syringe IVPUSH 0.5 mg Q4H PRN Administration Breakthrough Pain Ceftriaxone Sodium 1 gm/ 50 mls @ 100 mls/hr 01/22/21 17:00 01/23/21 18:38 Sodium Chloride IV Infused Q24H NANIC Infusion Azithromycin 500 mg/ Sodium 250 mls @ 125 mls/hr 01/22/21 18:00 01/23/21 21:00 Chloride IV Infused DAILY@1800 NANCI Infusion Remdesivir 100 mg/ Sodium 230 mls @ 115 mls/hr 01/22/21 20:00 01/23/21 20:55 Chloride IV 01/25/21 21:59 115 mls/hr Q24H NANCI Administration Lidocaine 1 patch 01/22/21 09:00 01/23/21 08:27 Lidocaine 4 % Patch Adh..Patch TRANSDERMA 1 patch DAILY NANCI Administration Protocol Sodium Chloride 3 ml 01/22/21 00:00 01/23/21 20:55 0.9 % Sodium Chloride Flush 3 Ml Syringe IVFLUSH 3 ml QSHIFT NANCI Administration Trazodone HCl 50 - 100 mg 01/21/21 17:48 Trazodone Hcl 100 Mg Tablet PO BEDTIME PRN Insomnia Home Medications Medication Instructions Recorded Confirmed Last Taken Type trazodone 50 - 100 mg PO BEDTIME PRN 01/21/21 01/21/21 Unknown History Physical Exam Vital Signs: Vital Signs: Last Vital Signs Temp 97.3 F 01/23/21 19:28 Pulse 83 01/23/21 19:28 Resp 18 01/23/21 20:55 BP 134/80 01/23/21 19:28 Pulse Ox 95 01/23/21 19:28 Body Mass Index 33.4 Const: General: cooperative HENMT: Head: Yes normal to inspection Mouth: Normal oral and palatal mucosa present Resp: Effort & Inspection: normal respiratory effort and able to speak in complete sentences Cardio: Rate: regular rate Rhythm: regular rhythm GI: Palpation (GI): Soft to palpation and nontender : General: Yes no CVA tenderness Back/Spine/Pelvis: Back: no CVA tenderness Skin: General skin exam: no rashes or lesions noted Results Labs CBC & Chem 7: 04/02/21 05:41 01/22/21 05:41 Microbiology Microbiology Results: Microbiology 01/21/21 13:27 Blood - Venous Blood Culture - Preliminary No growth after 48 hours. 01/21/21 13:11 Blood - Venous Blood Culture - Preliminary No growth after 48 hours. Assessment and Plan (1) Community acquired pneumonia: Problem details: Elevated procalcitonin and concern over worsening respiratory status day 10 Status: Acute Agree Zmax and Ceftriaxone for now,possible 3-5d and then po Ceftin and Zmax complete 8d (2) Acute and chronic respiratory failure with hypoxia: Status: Acute (3) Acute respiratory distress syndrome (ARDS) due to COVID-19 virus: Problem details: 10 days since COVID symptoms Status: Acute Remdesivir steroids oxygen not candidate for Tocilizumab at this time Check CRP
[2021-01-24] VITALS (9 sets, daily range): BP systolic 130–139; BP diastolic 73–85; PULSE 53–82; RESP 18–20; TEMP 36.2–36.6; O2SAT 93–97
[2021-01-24 00:27] LABS: C Reactive Protein 20.65 mg/dL (< or = 0.50)
[2021-01-24] MEDS: HYDROmorphone HCl 0.5 MG/0.5 ML SYRINGE IVPUSH ×4 (01:07→20:35)
[2021-01-24] MEDS: Lidocaine 4 % Patch ADH..PATCH 1 PATCH TRANSDERMA (09:27)
[2021-01-24] MEDS: Famotidine 20 MG TABLET PO (09:27)
[2021-01-24] MEDS: 0.9 % Sodium Chloride Flush 3 ML SYRINGE IVFLUSH ×3 (09:27→20:36)
[2021-01-24] MEDS: dexAMETHasone sod phosphate 4 MG/ML VIAL 6 MG IVPUSH (09:28)
--- NOTE | 2021-01-24 11:13 | HO.PM.IMPN ---
Subjective Subjective Date of Service: 01/24/21 Interval History: seen for acute hypoxic respriatory failure d/t covid PNA, has persistent hypoxia, pain with cough--On oxymizer 14/L, CRP going down Review of Systems Gen: no fever Resp: + sob, + cough CV: no chest, no MORENO, no leg edema GI: No n/v, no abd pain Neuro: No confusion Physical Exam Vital Signs: Vital Signs: Last Vital Signs Temp 97.4 F 01/24/21 08:00 Pulse 74 01/24/21 08:00 Resp 20 01/24/21 08:00 BP 130/83 01/24/21 08:00 Pulse Ox 95 01/24/21 08:00 Body Mass Index 33.4 Const: Other: General: AO X 3, no acute distress, talked in full sentences Resp: no ausculation d/t covid, no accessory muscle use CVS: S1,S2, on monitor GI: +BS, NT, no distention Skin: No rash Neuro: motor grossly intact Psych: appropriate affect Objective Data Current Medications Generic Name Dose Route Start Last Admin Trade Name Freq PRN Reason Stop Dose Admin Acetaminophen 650 mg 01/21/21 17:48 01/23/21 06:27 Acetaminophen 325 Mg Tablet PO 650 mg Q6H PRN Administration Pain, Mild (Pain Scale 1-3) Benzonatate 100 mg 01/24/21 11:10 Benzonatate 100 Mg Capsule PO TID PRN Cough Dexamethasone Sodium Phosphate 6 mg 01/22/21 09:00 01/24/21 09:28 Dexamethasone Sod Phosphate 4 Mg/Ml Vial IVPUSH 6 mg DAILY NANCI Administration Famotidine 20 mg 01/22/21 09:00 01/24/21 09:27 Famotidine 20 Mg Tablet PO 20 mg DAILY NANCI Administration Hydrocodone Bit/Homatropine Methylb 5 ml 01/24/21 11:11 Hydrocodone/Homat 5/1.5/5 Ml 5 Ml Syrup PO Q6H PRN Cough Hydromorphone HCl 0.5 mg 01/21/21 21:53 01/24/21 06:23 Hydromorphone Hcl 0.5 Mg/0.5 Ml Syringe IVPUSH 0.5 mg Q4H PRN Administration Breakthrough Pain Ceftriaxone Sodium 1 gm/ 50 mls @ 100 mls/hr 01/22/21 17:00 01/23/21 18:38 Sodium Chloride IV Infused Q24H NANCI Infusion Azithromycin 500 mg/ Sodium 250 mls @ 125 mls/hr 01/22/21 18:00 01/23/21 21:00 Chloride IV Infused DAILY@1800 NANCI Infusion Remdesivir 100 mg/ Sodium 230 mls @ 115 mls/hr 01/22/21 20:00 01/23/21 23:20 Chloride IV 01/25/21 21:59 Infused Q24H [facility]ANCI Infusion Lidocaine 1 patch 01/22/21 09:00 01/24/21 09:27 Lidocaine 4 % Patch Adh..Patch TRANSDERMA 1 patch DAILY NANCI Administration Protocol Sodium Chloride 3 ml 01/22/21 00:00 01/24/21 09:27 0.9 % Sodium Chloride Flush 3 Ml Syringe IVFLUSH 3 ml QSHIFT NANCI Administration Trazodone HCl 50 - 100 mg 01/21/21 17:48 Trazodone Hcl 100 Mg Tablet PO BEDTIME PRN Insomnia Labs CBC & Chem 7: 01/22/21 05:41 01/22/21 05:41 Microbiology Microbiology Results: Microbiology 01/21/21 13:27 Blood - Venous Blood Culture - Preliminary No growth after 48 hours. 01/21/21 13:11 Blood - Venous Blood Culture - Preliminary No growth after 48 hours. Assessment and Plan (1) Community acquired pneumonia: Status: Acute (2) Acute and chronic respiratory failure with hypoxia: Status: Acute (3) Acute respiratory distress syndrome (ARDS) due to COVID-19 virus: Status: Acute Assessment and Plan: 40/male with covid related resp failure, PNA, 1. Acute hypoxemic respiratory failure-secondary to COVID with viral sepsis. Persitent symptoms for 11 days now Continue oxygen support, dexamethasone, Remdesevir D3 ID and pulmonary following Hycodan/tessalon for cough Proning intermittently if tolerate Blood cultures are negative so far Empiric antibiotic for CAP, Azithro and ceft Not candidate for monoclonal antibody 2. Mild hyponatremia: 134, mild, observe 3. Continue trazodone at bedtime for nightmare DVT prophylaxis with SCDs since patient has hemoptysis intermittent. Remdesivir steroids oxygen not candidate for Tocilizumab at this time Check CRP
[2021-01-24] MEDS: HYDROcodone/Homat 5/1.5/5 ML 5 ML SYRUP PO ×2 (13:23→20:43)
[2021-01-24] MEDS: Benzonatate 100 MG CAPSULE PO (13:23)
[2021-01-24] MEDS: cefTRIAXone sodium 1 GM in 0.9 % Sodium Chloride 50 ML IV (18:07)
[2021-01-24] MEDS: Azithromycin 500 MG in 0.9 % Sodium Chloride 250 ML 125 MG IV (18:41)
[2021-01-24 19:48] LABS: Alanine Aminotransferase 40 U/L (0-40); Albumin Level 3.1 g/dL (3.5-5.0); Alkaline Phosphatase 68 U/L (39-117); Aspartate Amino Transferase 29 U/L (5-37); Bilirubin Direct 0.2 mg/dL (0.0-0.5); Bilirubin Total 0.4 mg/dL (0.0-1.0); Total Protein 6.8 g/dL (6.5-8.0)
[2021-01-24] MEDS: Remdesivir 100 MG in 0.9 % Sodium Chloride 230 ML 115 MG IV (20:35)
[2021-01-25] MEDS: HYDROmorphone HCl 0.5 MG/0.5 ML SYRINGE IVPUSH (01:25)
[2021-01-25] MEDS: HYDROcodone/Homat 5/1.5/5 ML 5 ML SYRUP PO ×3 (02:16→13:52)
[2021-01-25] MEDS: Benzonatate 100 MG CAPSULE PO ×2 (02:20→07:55)
[2021-01-25 04:00] VITALS: BP 132/80; PULSE 90; RESP 18; TEMP 36.6; O2SAT 94
[2021-01-25 06:26] VITALS: BMI 31.1
[2021-01-25 07:26] VITALS: BP 133/84; PULSE 69; RESP 20; TEMP 36.4; O2SAT 94
[2021-01-25 07:41] LABS: Anion Gap 24 (12-20); Blood Urea Nitrogen 21 mg/dL (9-16); Calcium 9.3 mg/dL (8.4-10.2); Carbon Dioxide 25 mmol/L (22-29); Chloride 95 mmol/L (96-108); Creatinine Clr Calc Pharmacy 140.4; Estimated Glomerular Filt Rate > 60; Glucose Random 369 mg/dL (60-115); Potassium 5.3 mmol/L (3.3-5.1); Sodium 138 mmol/L (135-145)
[2021-01-25] MEDS: 0.9 % Sodium Chloride Flush 3 ML SYRINGE IVFLUSH ×2 (07:52→16:46)
[2021-01-25] MEDS: dexAMETHasone sod phosphate 4 MG/ML VIAL 6 MG IVPUSH (07:54)
[2021-01-25] MEDS: Famotidine 20 MG TABLET PO (07:55)
[2021-01-25] MEDS: Lidocaine 4 % Patch ADH..PATCH 1 PATCH TRANSDERMA (07:55)
--- NOTE | 2021-01-25 09:50 | HO.PM.IMPN ---
Subjective Subjective Date of Service: 01/25/21 Interval History: seen for acute hypoxic respriatory failure d/t covid PNA, has persistent hypoxia, pain with cough--Still on high amount of oxygen Review of Systems Gen: no fever Resp: + sob, + cough CV: no chest, no MORENO, no leg edema GI: No n/v, no abd pain Neuro: No confusion Physical Exam Vital Signs: Vital Signs: Last Vital Signs Temp 97.5 F 01/25/21 07:26 Pulse 69 01/25/21 07:26 Resp 20 01/25/21 07:26 BP 133/84 01/25/21 07:26 Pulse Ox 94 01/25/21 07:26 Body Mass Index 31.1 Const: Other: General: AO X 3, no acute distress, talked in full sentences Resp: no ausculation d/t covid, no accessory muscle use CVS: S1,S2, on monitor GI: +BS, NT, no distention Skin: No rash Neuro: motor grossly intact Psych: appropriate affect Objective Data Current Medications Generic Name Dose Route Start Last Admin Trade Name Freq PRN Reason Stop Dose Admin Acetaminophen 650 mg 01/21/21 17:48 01/23/21 06:27 Acetaminophen 325 Mg Tablet PO 650 mg Q6H PRN Administration Pain, Mild (Pain Scale 1-3) Benzonatate 100 mg 01/24/21 11:10 01/25/21 07:55 Benzonatate 100 Mg Capsule PO 100 mg TID PRN Administration Cough Dexamethasone Sodium Phosphate 6 mg 01/22/21 09:00 01/25/21 07:54 Dexamethasone Sod Phosphate 4 Mg/Ml Vial IVPUSH 6 mg DAILY [facility] Administration Famotidine 20 mg 01/22/21 09:00 01/25/21 07:55 Famotidine 20 Mg Tablet PO 20 mg DAILY [facility] Administration Hydrocodone Bit/Homatropine Methylb 5 ml 01/24/21 11:11 01/25/21 07:54 Hydrocodone/Homat 5/1.5/5 Ml 5 Ml Syrup PO 5 ml Q6H PRN Administration Cough Ceftriaxone Sodium 1 gm/ 50 mls @ 100 mls/hr 01/22/21 17:00 01/24/21 18:41 Sodium Chloride IV Infused Q24H [facility] Infusion Azithromycin 500 mg/ Sodium 250 mls @ 125 mls/hr 01/22/21 18:00 01/24/21 20:46 Chloride IV Infused DAILY@1800 [facility] Infusion Remdesivir 100 mg/ Sodium 230 mls @ 115 mls/hr 01/22/21 20:00 01/24/21 22:39 Chloride IV 01/25/21 21:59 Infused Q24H [facility] Infusion Lidocaine 1 patch 01/22/21 09:00 01/25/21 07:55 Lidocaine 4 % Patch Adh..Patch TRANSDERMA 1 patch DAILY [facility] Administration Protocol Oxycodone HCl 5 mg 01/25/21 08:45 Oxycodone Hcl Immed Release 5 Mg Tablet PO Q4H PRN Pain, Severe (Pain Scale 7-10) Sodium Chloride 3 ml 01/22/21 00:00 01/25/21 07:52 0.9 % Sodium Chloride Flush 3 Ml Syringe IVFLUSH 3 ml QSHIFT [facility] Administration Trazodone HCl 50 - 100 mg 01/21/21 17:48 Trazodone Hcl 100 Mg Tablet PO BEDTIME PRN Insomnia Labs CBC & Chem 7: 01/22/21 05:41 01/25/21 05:52 Microbiology Microbiology Results: Microbiology 01/21/21 13:27 Blood - Venous Blood Culture - Preliminary No growth after 48 hours. 01/21/21 13:11 Blood - Venous Blood Culture - Preliminary No growth after 48 hours. Assessment and Plan (1) Community acquired pneumonia: Status: Acute (2) Acute and chronic respiratory failure with hypoxia: Status: Acute (3) Acute respiratory distress syndrome (ARDS) due to COVID-19 virus: Status: Acute Assessment and Plan: 40/male with covid related resp failure, PNA, 1. Acute hypoxemic respiratory failure-secondary to COVID with viral sepsis. Persitent symptoms for 11 days now Continue oxygen support, dexamethasone, Remdesevir D4 ID and pulmonary following Hycodan/tessalon for cough Proning intermittently if tolerate Blood cultures are negative so far Empiric antibiotic for CAP, Azithro and ceft Not candidate for monoclonal antibody 2. Mild hyponatremia: 134, mild, observe 3. Continue trazodone at bedtime for nightmare DVT prophylaxis with SCDs since patient has hemoptysis intermittent.
[2021-01-25 11:08] VITALS: BP 134/79; PULSE 72; RESP 24; TEMP 36.6; O2SAT 91
--- NOTE | 2021-01-25 11:29 | MHC.CM.PN ---
Patient is still requiring 15 liters O2 via oxymixer to keep sats >90%. Patient is also on IV Zithromax, IV Ceftriaxone, IV Dexamethasone, IV Remdesivir and IV Dilaudid. Discharge plan is home no services. S.O. will provide transportation. CM will continue to follow patient for discharge needs.
[2021-01-25] MEDS: oxyCODONE HCl Immed Release 5 MG TABLET PO ×2 (13:51→20:21)
[2021-01-25 15:49] VITALS: BP 140/85; PULSE 78; RESP 16; TEMP 36.5; O2SAT 94
[2021-01-25] MEDS: cefTRIAXone sodium 1 GM in 0.9 % Sodium Chloride 50 ML IV (16:45)
[2021-01-25] MEDS: Azithromycin 500 MG in 0.9 % Sodium Chloride 250 ML 125 MG IV (18:01)
[2021-01-25 19:31] VITALS: BP 148/88; PULSE 74; RESP 14; TEMP 36.1; O2SAT 93
[2021-01-25] MEDS: Remdesivir 100 MG in 0.9 % Sodium Chloride 230 ML 115 MG IV (20:23)
[2021-01-25 20:43] LABS: Glucose, Whole Blood 502 mg/dL (60-115)
[2021-01-25] MEDS: Insulin Lispro 100 UNIT/ML 3 ML VIAL SUBCUT (20:58)
[2021-01-25] MEDS: Insulin Lispro 100 UNIT/ML 3 ML VIAL 15 UNIT SUBCUT (21:03)
[2021-01-25 22:26] LABS: Glucose, Whole Blood 423 mg/dL (60-115)
[2021-01-25 22:41] LABS: VBG Base Excess -3.6 mmol/L; VBG HCO3 20 mmol/L (22-26); VBG pCO2 34 mmHg; VBG pH 7.38 (7.32-7.43); VBG pO2 62 mmHg
[2021-01-25 22:41] LABS: Venous Blood Gas Refer to POC result
[2021-01-25 23:14] LABS: Acetone, serum QL Small (Negative)
[2021-01-25 23:15] LABS: Anion Gap 23 (12-20); Blood Urea Nitrogen 23 mg/dL (9-16); Calcium 9.1 mg/dL (8.4-10.2); Carbon Dioxide 22 mmol/L (22-29); Chloride 95 mmol/L (96-108); Estimated Glomerular Filt Rate > 60; Potassium 4.8 mmol/L (3.3-5.1); Sodium 135 mmol/L (135-145)
[2021-01-25 23:51] VITALS: BP 142/85; PULSE 71; RESP 18; TEMP 36.3; O2SAT 90
[2021-01-25] MEDS: Insulin Regular, Human 100 UNIT/ML 3 ML VIAL 10 UNIT IVPUSH (23:54)
[2021-01-26] MEDS: 0.9 % Sodium Chloride 1,000 ML 100 ML IVCONT ×2 (00:19→11:54)
[2021-01-26 00:21] LABS: Glucose Random 436 mg/dL (60-115)
[2021-01-26 00:33] LABS: Glucose, Whole Blood 340 mg/dL (60-115)
[2021-01-26 01:25] LABS: Anion Gap 20 (12-20); Blood Urea Nitrogen 23 mg/dL (9-16); Calcium 8.7 mg/dL (8.4-10.2); Carbon Dioxide 22 mmol/L (22-29); Chloride 97 mmol/L (96-108); Creatinine Clr Calc Pharmacy 138.8; Estimated Glomerular Filt Rate > 60; Glucose Random 346 mg/dL (60-115); Potassium 5.1 mmol/L (3.3-5.1); Sodium 134 mmol/L (135-145)
[2021-01-26 01:30] LABS: Glucose, Whole Blood 315 mg/dL (60-115)
[2021-01-26] MEDS: Insulin Regular, Human 100 UNIT/ML 3 ML VIAL 10 UNIT IVPUSH ×2 (01:49→05:08)
[2021-01-26 02:28] LABS: Glucose, Whole Blood 310 mg/dL (60-115)
[2021-01-26 03:20] VITALS: BP 126/78; PULSE 73; RESP 18; TEMP 36.8; O2SAT 91
[2021-01-26 04:37] LABS: Glucose, Whole Blood 306 mg/dL (60-115)
[2021-01-26 04:37] LABS: Glucose, Whole Blood 311 mg/dL (60-115)
[2021-01-26 06:21] LABS: Hematocrit 43.7 % (42-52); Hemoglobin 14.4 g/dl (14.0-18.0); Mean Corpuscular Hemoglobin 27.5 pg (27.0-33.0); Mean Corpuscular Volume 83.6 fL (80-98); Mean Platelet Volume 10.5 fL (9.4-12.4); Platelet Count 438 X10*3/uL (160-400); Red Blood Count 5.23 X10*6/uL (4.60-5.80); Red Cell Distribution Width 12.3 % (11.0-16.0)
[2021-01-26 06:31] LABS: Estimated Average Glucose 298 mg/dL
[2021-01-26 06:33] LABS: Anion Gap 18 (12-20); Blood Urea Nitrogen 22 mg/dL (9-16); Calcium 8.9 mg/dL (8.4-10.2); Carbon Dioxide 26 mmol/L (22-29); Chloride 98 mmol/L (96-108); Creatinine Clr Calc Pharmacy 159.7; Estimated Glomerular Filt Rate > 60; Glucose Random 300 mg/dL (60-115); Potassium 4.5 mmol/L (3.3-5.1); Sodium 137 mmol/L (135-145)
[2021-01-26 07:11] LABS: Glucose, Whole Blood 272 mg/dL (60-115)
[2021-01-26 07:55] LABS: Glucose, Whole Blood 296 mg/dL (60-115)
[2021-01-26 08:00] VITALS: BP 128/70; PULSE 92; RESP 18; TEMP 36.2; O2SAT 91
[2021-01-26] MEDS: Famotidine 20 MG TABLET PO (08:13)
[2021-01-26] MEDS: Insulin Lispro 100 UNIT/ML 3 ML VIAL SUBCUT ×4 (08:13→21:33)
[2021-01-26] MEDS: Lidocaine 4 % Patch ADH..PATCH 1 PATCH TRANSDERMA (08:14)
[2021-01-26] MEDS: dexAMETHasone sod phosphate 4 MG/ML VIAL 6 MG IVPUSH (08:15)
[2021-01-26] MEDS: 0.9 % Sodium Chloride Flush 3 ML SYRINGE IVFLUSH (08:15)
[2021-01-26] MEDS: Benzonatate 100 MG CAPSULE PO (08:17)
[2021-01-26] MEDS: Insulin Glargine,Hum.rec.anlog 100 UNIT/ML 10 ML VIAL 12 UNIT SUBCUT (10:07)
[2021-01-26] MEDS: metFORMIN HCl 500 MG TABLET PO ×2 (10:07→17:42)
[2021-01-26] MEDS: oxyCODONE HCl Immed Release 5 MG TABLET PO ×2 (10:23→21:20)
[2021-01-26 11:21] LABS: Glucose, Whole Blood 329 mg/dL (60-115)
[2021-01-26 12:00] VITALS: BP 142/80; PULSE 72; RESP 18; TEMP 36.6; O2SAT 95
--- NOTE | 2021-01-26 14:56 | P.PNIM_ITS ---
Subjective Subjective Date of Service: 01/26/21 Interval History: seen for acute hypoxic respriatory failure d/t covid PNA, has persistent hypoxia, pain with cough--little better today Review of Systems Gen: no fever Resp: + sob, + cough CV: no chest, no MORENO, no leg edema GI: No n/v, no abd pain Neuro: No confusion Physical Exam Vital Signs: Vital Signs: Last Vital Signs Temp 98 F 01/26/21 12:00 Pulse 72 01/26/21 12:00 Resp 18 01/26/21 12:00 BP 142/80 H 01/26/21 12:00 Pulse Ox 95 01/26/21 12:00 Body Mass Index 31.1 Const: Other: General: AO X 3, no acute distress, talked in full sentences Resp: no ausculation d/t covid, no accessory muscle use CVS: S1,S2, on monitor GI: +BS, NT, no distention Skin: No rash Neuro: motor grossly intact Psych: appropriate affect Objective Data Current Medications Generic Name Dose Route Start Last Admin Trade Name Benjyq PRN Reason Stop Dose Admin Acetaminophen 650 mg 01/21/21 17:48 01/23/21 06:27 Acetaminophen 325 Mg Tablet PO 650 mg Q6H PRN Administration Pain, Mild (Pain Scale 1-3) Benzonatate 100 mg 01/24/21 11:10 01/26/21 08:17 Benzonatate 100 Mg Capsule PO 100 mg TID PRN Administration Cough Dexamethasone Sodium Phosphate 6 mg 01/22/21 09:00 01/26/21 08:15 Dexamethasone Sod Phosphate 4 Mg/Ml Vial IVPUSH 6 mg DAILY [facility] Administration Famotidine 20 mg 01/22/21 09:00 01/26/21 08:13 Famotidine 20 Mg Tablet PO 20 mg DAILY [facility] Administration Hydrocodone Bit/Homatropine Methylb 5 ml 01/24/21 11:11 01/25/21 13:52 Hydrocodone/Homat 5/1.5/5 Ml 5 Ml Syrup PO 5 ml Q6H PRN Administration Cough Ceftriaxone Sodium 1 gm/ 50 mls @ 100 mls/hr 01/22/21 17:00 01/25/21 17:25 Sodium Chloride IV Infused Q24H [facility] Infusion Azithromycin 500 mg/ Sodium 250 mls @ 125 mls/hr 01/22/21 18:00 01/25/21 20:37 Chloride IV Infused DAILY@1800 [facility] Infusion Sodium Chloride 1,000 mls @ 100 mls/hr 01/25/21 23:30 01/26/21 11:54 Ns IVCONT 100 mls/hr .Q10H [facility] Administration Insulin Glargine 12 unit 01/26/21 09:00 01/26/21 10:07 Insulin Glargine,Hum.Rec.Anlog 100 Unit/Ml 10 Ml Vial SUBCUT 12 unit DAILY [facility] Administration Insulin Human Lispro 0 unit 01/25/21 21:00 01/26/21 11:27 Insulin Lispro 100 Unit/Ml 3 Ml Vial SUBCUT 8 unit QIDACHS [facility] Administration Protocol Lidocaine 1 patch 01/22/21 09:00 01/26/21 08:14 Lidocaine 4 % Patch Adh..Patch TRANSDERMA 1 patch DAILY [facility] Administration Protocol Metformin HCl 500 mg 01/26/21 08:30 01/26/21 10:07 Metformin Hcl 500 Mg Tablet PO 500 mg BIDWM [facility] Administration Oxycodone HCl 5 mg 01/25/21 08:45 01/26/21 10:23 Oxycodone Hcl Immed Release 5 Mg Tablet PO 5 mg Q4H PRN Administration Pain, Severe (Pain Scale 7-10) Sodium Chloride 3 ml 01/22/21 00:00 01/26/21 08:15 0.9 % Sodium Chloride Flush 3 Ml Syringe IVFLUSH 3 ml QSHIFT [facility] Administration Trazodone HCl 50 - 100 mg 01/21/21 17:48 Trazodone Hcl 100 Mg Tablet PO BEDTIME PRN Insomnia Labs CBC & Chem 7: 01/26/21 05:28 01/26/21 05:28 Microbiology Microbiology Results: Microbiology 01/21/21 13:27 Blood - Venous Blood Culture - Preliminary No growth after 48 hours. 01/21/21 13:11 Blood - Venous Blood Culture - Preliminary No growth after 48 hours. Assessment and Plan (1) Community acquired pneumonia: Status: Acute (2) Acute and chronic respiratory failure with hypoxia: Status: Acute (3) Acute respiratory distress syndrome (ARDS) due to COVID-19 virus: Status: Acute Assessment and Plan: 40/male with covid related resp failure, PNA, 1. Acute hypoxemic respiratory failure-secondary to COVID with viral sepsis. better with less oxygen requirement tody but not ideal for discharge Continue oxygen support, dexamethasone for 10 days Remdesevir D5 ID and pulmonary following Hycodan/tessalon for cough Proning intermittently if tolerate Blood cultures are negative so far Empiric antibiotic for CAP, Azithro and ceft Not candidate for monoclonal antibody 2. Mild hyponatremia: Resolved 3. New onset diabetes--Hgb A1c is 12. Started on Lantus, SSI, and Metformin. Will kathi diabetes education before dischar 3. Continue trazodone at bedtime for nightmare DVT prophylaxis with SCDs since patient has hemoptysis intermittent.
[2021-01-26 15:22] VITALS: BP 144/91; PULSE 63; RESP 20; TEMP 36; O2SAT 94
[2021-01-26 16:02] LABS: Glucose, Whole Blood 387 mg/dL (60-115)
[2021-01-26] MEDS: cefTRIAXone sodium 1 GM in 0.9 % Sodium Chloride 50 ML IV (17:34)
[2021-01-26] MEDS: Azithromycin 500 MG in 0.9 % Sodium Chloride 250 ML 125 MG IV (18:14)
[2021-01-26 19:27] VITALS: BP 142/82; PULSE 73; RESP 20; TEMP 36; O2SAT 96
[2021-01-26 20:08] LABS: Glucose, Whole Blood 401 mg/dL (60-115)
[2021-01-26] MEDS: Insulin Lispro 100 UNIT/ML 3 ML VIAL 10 UNIT SUBCUT (21:33)
[2021-01-26 23:47] VITALS: BP 142/86; PULSE 56; RESP 18; TEMP 36.3; O2SAT 94
[2021-01-27 03:38] VITALS: BP 137/90; PULSE 68; RESP 18; TEMP 36.2; O2SAT 94
[2021-01-27 07:20] LABS: Glucose, Whole Blood 280 mg/dL (60-115)
[2021-01-27 07:56] VITALS: BP 119/75; PULSE 106; RESP 19; TEMP 36.9; O2SAT 92
[2021-01-27] MEDS: Insulin Lispro 100 UNIT/ML 3 ML VIAL SUBCUT ×6 (08:36→21:18)
[2021-01-27] MEDS: Insulin Glargine,Hum.rec.anlog 100 UNIT/ML 10 ML VIAL 12 UNIT SUBCUT (08:36)
[2021-01-27] MEDS: 0.9 % Sodium Chloride Flush 3 ML SYRINGE IVFLUSH ×3 (08:36→21:18)
[2021-01-27] MEDS: dexAMETHasone sod phosphate 4 MG/ML VIAL 6 MG IVPUSH (08:36)
[2021-01-27] MEDS: metFORMIN HCl 500 MG TABLET PO ×2 (08:36→17:10)
[2021-01-27] MEDS: Famotidine 20 MG TABLET PO (08:37)
[2021-01-27] MEDS: Lidocaine 4 % Patch ADH..PATCH 1 PATCH TRANSDERMA (08:37)
[2021-01-27 11:11] LABS: Glucose, Whole Blood 396 mg/dL (60-115)
[2021-01-27 11:24] VITALS: BP 119/74; PULSE 80; RESP 18; TEMP 37.2; O2SAT 95
[2021-01-27] MEDS: Insulin Glargine,Hum.rec.anlog 100 UNIT/ML 10 ML VIAL 8 UNIT SUBCUT (11:58)
[2021-01-27] MEDS: Acetaminophen 325 MG TABLET 650 MG PO (12:04)
--- NOTE | 2021-01-27 13:42 | MHC.CM.PN ---
Patient is requiring 4 liters o2 via [facility] for COVID PNA. Patient is also on IVF, IV Zithromax, IV Ceftriaoxone and IV Dexamethasone day 04/01. Discharge plan is home no services. S.O. will provide transportation. CM will continue to follow patient for discharge needs.
--- NOTE | 2021-01-27 13:56 | HO.PM.IMPN ---
Subjective Subjective Date of Service: 01/27/21 Interval History: seen for acute hypoxic respriatory failure d/t covid PNA, he continues to do improve, oxygenation is better.. transition to oxymizer t nasal cannula and sating around 93 on 6 liters Review of Systems Gen: no fever Resp: + sob, + cough CV: no chest, no MORENO, no leg edema GI: No n/v, no abd pain Neuro: No confusion Physical Exam Vital Signs: Vital Signs: Last Vital Signs Temp 98.9 F 01/27/21 11:24 Pulse 80 01/27/21 11:24 Resp 18 01/27/21 11:24 BP 119/74 01/27/21 11:24 Pulse Ox 95 01/27/21 11:24 Body Mass Index 31.1 Const: Other: General: AO X 3, no acute distress, talked in full sentences Resp: no ausculation d/t covid, no accessory muscle use CVS: S1,S2, on monitor GI: +BS, NT, no distention Skin: No rash Neuro: motor grossly intact Psych: appropriate affect Objective Data Current Medications Generic Name Dose Route Start Last Admin Trade Name Freq PRN Reason Stop Dose Admin Acetaminophen 650 mg 01/21/21 17:48 01/27/21 12:04 Acetaminophen 325 Mg Tablet PO 650 mg Q6H PRN Administration Pain, Mild (Pain Scale 1-3) Benzonatate 100 mg 01/24/21 11:10 01/26/21 08:17 Benzonatate 100 Mg Capsule PO 100 mg TID PRN Administration Cough Dexamethasone Sodium Phosphate 6 mg 01/22/21 09:00 01/27/21 08:36 Dexamethasone Sod Phosphate 4 Mg/Ml Vial IVPUSH 6 mg DAILY NANCI Administration Famotidine 20 mg 01/22/21 09:00 01/27/21 08:37 Famotidine 20 Mg Tablet PO 20 mg DAILY [facility]AN[facility] Administration Hydrocodone Bit/Homatropine Methylb 5 ml 01/24/21 11:11 01/25/21 13:52 Hydrocodone/Homat 5/1.5/5 Ml 5 Ml Syrup PO 5 ml Q6H PRN Administration Cough Ceftriaxone Sodium 1 gm/ 50 mls @ 100 mls/hr 01/22/21 17:00 01/26/21 18:19 Sodium Chloride IV Infused Q24H [facility] Infusion Azithromycin 500 mg/ Sodium 250 mls @ 125 mls/hr 01/22/21 18:00 01/26/21 21:37 Chloride IV Infused DAILY@1800 [facility] Infusion Sodium Chloride 1,000 mls @ 100 mls/hr 01/25/21 23:30 01/27/21 09:53 Ns IVCONT Infused .Q10H [facility] Infusion Insulin Glargine 20 unit 01/28/21 09:00 Insulin Glargine,Hum.Rec.Anlog 100 Unit/Ml 10 Ml Vial SUBCUT DAILY [facility] Insulin Human Lispro 0 unit 01/25/21 21:00 01/27/21 11:59 Insulin Lispro 100 Unit/Ml 3 Ml Vial SUBCUT 10 unit QIDACHS [facility] Administration Protocol Insulin Human Lispro 5 unit 01/27/21 11:35 01/27/21 11:59 Insulin Lispro 100 Unit/Ml 3 Ml Vial SUBCUT 5 unit TIDAC [facility] Administration Lidocaine 1 patch 01/22/21 09:00 01/27/21 08:37 Lidocaine 4 % Patch Adh..Patch TRANSDERMA 1 patch DAILY [facility] Administration Protocol Metformin HCl 500 mg 01/26/21 08:30 01/27/21 08:36 Metformin Hcl 500 Mg Tablet PO 500 mg BIDWM [facility] Administration Oxycodone HCl 5 mg 01/25/21 08:45 01/26/21 21:20 Oxycodone Hcl Immed Release 5 Mg Tablet PO 5 mg Q4H PRN Administration Pain, Severe (Pain Scale 7-10) Sodium Chloride 3 ml 01/22/21 00:00 01/27/21 08:37 0.9 % Sodium Chloride Flush 3 Ml Syringe IVFLUSH Not Given QSHIFT [facility] Trazodone HCl 50 - 100 mg 01/21/21 17:48 Trazodone Hcl 100 Mg Tablet PO BEDTIME PRN Insomnia Labs CBC & Chem 7: 01/26/21 05:28 01/26/21 05:28 Microbiology Microbiology Results: Microbiology 01/21/21 13:27 Blood - Venous Blood Culture - Final No growth after 5 days. 01/21/21 13:11 Blood - Venous Blood Culture - Final No growth after 5 days. Assessment and Plan (1) Community acquired pneumonia: Status: Acute (2) Acute and chronic respiratory failure with hypoxia: Status: Acute (3) Acute respiratory distress syndrome (ARDS) due to COVID-19 virus: Status: Acute Assessment and Plan: 40/male with covid related resp failure, PNA, 1. Acute hypoxemic respiratory failure-secondary to COVID with viral sepsis. better with less oxygen requirement tody but not ideal for discharge Continue oxygen support, dexamethasone for 10 days Remdesevir done ID and pulmonary following Hycodan/tessalon for cough Proning intermittently if tolerate Blood cultures are negative so far Empiric antibiotic for CAP, Azithro and ceft Not candidate for monoclonal antibody continue weaning off O2 2. Mild hyponatremia: Resolved 3. New onset diabetes--Hgb A1c is 12. BS still high d/t steroid Increase Lantus to 20, pre meal insulin 5, Metformin 500 bid, increase to 1000 bid by tomorrow 3. Continue trazodone at bedtime for nightmare DVT prophylaxis with SCDs since patient has hemoptysis intermittent. Anticipate discharge to home by the end of the week
[2021-01-27 15:20] VITALS: BP 145/83; PULSE 75; RESP 20; TEMP 36.1; O2SAT 96
[2021-01-27 16:09] LABS: Glucose, Whole Blood 378 mg/dL (60-115)
[2021-01-27] MEDS: cefTRIAXone sodium 1 GM in 0.9 % Sodium Chloride 50 ML IV (17:11)
[2021-01-27] MEDS: Azithromycin 500 MG in 0.9 % Sodium Chloride 250 ML 125 MG IV (17:55)
[2021-01-27 19:12] VITALS: BP 146/85; PULSE 70; RESP 20; TEMP 36; O2SAT 96
[2021-01-27 20:07] LABS: Glucose, Whole Blood 338 mg/dL (60-115)
[2021-01-27 23:33] VITALS: BP 122/71; PULSE 82; RESP 18; TEMP 36.8; O2SAT 93
[2021-01-27] MEDS: traZODone HCL 100 MG TABLET PO (23:37)
[2021-01-28 03:38] VITALS: BP 120/75; PULSE 75; RESP 18; TEMP 36.4; O2SAT 93
--- NOTE | 2021-01-28 05:18 | PC.NURSE ---
Patient titrated to 3L NC at 0400. Sats 92-94%.
[2021-01-28 06:00] VITALS: BMI 30.7
[2021-01-28] MEDS: 0.9 % Sodium Chloride 1,000 ML 100 ML IVCONT (06:25)
[2021-01-28 07:49] LABS: Glucose, Whole Blood 278 mg/dL (60-115)
[2021-01-28 08:00] VITALS: BP 112/73; PULSE 78; RESP 20; TEMP 36.8; O2SAT 91
[2021-01-28] MEDS: Insulin Glargine,Hum.rec.anlog 100 UNIT/ML 10 ML VIAL 20 UNIT SUBCUT (08:30)
[2021-01-28] MEDS: Insulin Lispro 100 UNIT/ML 3 ML VIAL SUBCUT ×7 (08:30→21:39)
[2021-01-28] MEDS: Famotidine 20 MG TABLET PO (08:31)
[2021-01-28] MEDS: dexAMETHasone sod phosphate 4 MG/ML VIAL 6 MG IVPUSH (08:31)
[2021-01-28] MEDS: 0.9 % Sodium Chloride Flush 3 ML SYRINGE IVFLUSH ×3 (08:31→23:32)
[2021-01-28] MEDS: metFORMIN HCl 500 MG TABLET PO (08:31)
[2021-01-28] MEDS: HYDROcodone/Homat 5/1.5/5 ML 5 ML SYRUP PO ×3 (08:43→23:31)
[2021-01-28] MEDS: Lidocaine 4 % Patch ADH..PATCH 1 PATCH TRANSDERMA (11:10)
[2021-01-28 11:20] LABS: Glucose, Whole Blood 320 mg/dL (60-115)
[2021-01-28 11:27] VITALS: BP 126/66; PULSE 80; RESP 16; TEMP 37.2; O2SAT 93
--- NOTE | 2021-01-28 12:46 | MHC.CM.PN ---
Per [facility] website, [facility] will cover [employer] glucometer and DM supplies. Will make MD aware on discharge. CM will continue to follow patient for discharge needs.
--- NOTE | 2021-01-28 14:05 | HO.PM.IMPN ---
Subjective Subjective Date of Service: 01/28/21 Interval History: Patient being followed for acute hypoxic respiratory failure due to COVID-19 pneumonia Patient complaining of persistent lightheadedness and shortness of breath with exertion, patient has not ambulated much except for using the bathroom, denies fever chills has not learned to check blood sugars or administer insulin. Review of Systems Gen: no fever, mild lightheadedness and dizziness Resp: Persistent shortness of breath with exertion, persistent dry cough CV: no chest, no MORENO, no leg edema GI: No n/v, no abd pain Physical Exam Vital Signs: Vital Signs: Last Vital Signs Temp 98.9 F 01/28/21 11:27 Pulse 80 01/28/21 11:27 Resp 16 01/28/21 11:27 BP 126/66 01/28/21 11:27 Pulse Ox 93 01/28/21 11:27 Body Mass Index 30.7 General: no acute distress, resting in bed Neck no JVD Resp: Diminished breath sounds, no accessory muscle use, able to talk in full sentence, no respiratory distress CVS: S1,S2, on monitor GI: Nontender bowel sounds audible Skin: No rash Neuro: motor grossly intact Psych: appropriate affect Objective Data Current Medications Generic Name Dose Route Start Last Admin Trade Name Freq PRN Reason Stop Dose Admin Acetaminophen 650 mg 01/21/21 17:48 01/27/21 12:04 Acetaminophen 325 Mg Tablet PO 650 mg Q6H PRN Administration Pain, Mild (Pain Scale 1-3) Benzonatate 100 mg 01/24/21 11:10 01/26/21 08:17 Benzonatate 100 Mg Capsule PO 100 mg TID PRN Administration Cough Dexamethasone Sodium Phosphate 6 mg 01/22/21 09:00 01/28/21 08:31 Dexamethasone Sod Phosphate 4 Mg/Ml Vial IVPUSH 6 mg DAILY [facility]ANCI Administration Famotidine 20 mg 01/22/21 09:00 01/28/21 08:31 Famotidine 20 Mg Tablet PO 20 mg DAILY [facility] Administration Hydrocodone Bit/Homatropine Methylb 5 ml 01/24/21 11:11 01/28/21 08:43 Hydrocodone/Homat 5/1.5/5 Ml 5 Ml Syrup PO 5 ml Q6H PRN Administration Cough Ceftriaxone Sodium 1 gm/ 50 mls @ 100 mls/hr 01/22/21 17:00 01/27/21 17:49 Sodium Chloride IV Infused Q24H [facility] Infusion Azithromycin 500 mg/ Sodium 250 mls @ 125 mls/hr 01/22/21 18:00 01/27/21 20:17 Chloride IV Infused DAILY@1800 [facility] Infusion Sodium Chloride 1,000 mls @ 100 mls/hr 01/25/21 23:30 01/28/21 06:25 Ns IVCONT 100 mls/hr .Q10H [facility] Administration Insulin Glargine 20 unit 01/28/21 09:00 01/28/21 08:30 Insulin Glargine,Hum.Rec.Anlog 100 Unit/Ml 10 Ml Vial SUBCUT 20 unit DAILY [facility] Administration Insulin Human Lispro 0 unit 01/25/21 21:00 01/28/21 11:34 Insulin Lispro 100 Unit/Ml 3 Ml Vial SUBCUT 8 unit QIDACHS [facility] Administration Protocol Insulin Human Lispro 5 unit 01/27/21 11:35 01/28/21 11:34 Insulin Lispro 100 Unit/Ml 3 Ml Vial SUBCUT 5 unit TIDAC [facility] Administration Lidocaine 1 patch 01/22/21 09:00 01/28/21 11:10 Lidocaine 4 % Patch Adh..Patch TRANSDERMA 1 patch DAILY [facility] Administration Protocol Metformin HCl 500 mg 01/26/21 08:30 01/28/21 08:31 Metformin Hcl 500 Mg Tablet PO 500 mg BIDWM [facility] Administration Oxycodone HCl 5 mg 01/25/21 08:45 01/26/21 21:20 Oxycodone Hcl Immed Release 5 Mg Tablet PO 5 mg Q4H PRN Administration Pain, Severe (Pain Scale 7-10) Sodium Chloride 3 ml 01/22/21 00:00 01/28/21 08:31 0.9 % Sodium Chloride Flush 3 Ml Syringe IVFLUSH 3 ml QSHIFT [facility] Administration Trazodone HCl 50 - 100 mg 01/21/21 17:48 01/27/21 23:37 Trazodone Hcl 100 Mg Tablet PO 100 mg BEDTIME PRN Administration Insomnia Labs CBC & Chem 7: 01/26/21 05:28 01/26/21 05:28 Microbiology Microbiology Results: Microbiology 01/21/21 13:27 Blood - Venous Blood Culture - Final No growth after 5 days. 01/21/21 13:11 Blood - Venous Blood Culture - Final No growth after 5 days. Assessment and Plan (1) Acute and chronic respiratory failure with hypoxia: Status: Acute (2) COVID-19: Status: Acute (3) Diabetes mellitus, new onset: Status: Acute Assessment and Plan: 40/male with covid related resp failure, PNA, 1. Acute hypoxemic respiratory failure-secondary to COVID with viral sepsis. Patient oxygen requirement is gradually decreasing currently on 4 L of oxygen, is still feels lightheaded with ambulation feels weak and sob,overall improving slowly. Will continue to wean oxygen and obtain a home O2 eval tomorrow morning recommended out of bed to chair and ambulation on iv dexamethasone day7/10 days, status post Remdesevir being followed by pulmonology and Infectious Disease, continue supportive care, blood cultures x2 are negative On IV azithromycin and ceftriaxone day 7 will DC antibiotic tomorrow continue weaning off O2 2. Mild hyponatremia: Resolved 3. New onset diabetes--Hgb A1c is 12. Blood sugars remain elevated likely related to steroid, continue Lantus 20 units, pre meal insulin and increase dose of metformin to 1000 b.i.d. Will give teachings to check blood sugars and to administer insulin, information about diabetic diet given will obtain a nutrition consultation,rec outpatient follow-up with PCP. 3. Continue trazodone at bedtime for nightmare DVT prophylaxis with SCDs since patient has hemoptysis intermittent.
[2021-01-28 15:05] VITALS: BP 140/56; PULSE 78; RESP 20; TEMP 36.6; O2SAT 93
--- NOTE | 2021-01-28 15:16 | MHC.CM.PN ---
CM met with patient to discuss discharge plan re: need for home care r/t new DM and new O2. [facility] about [facility]. Waiting return call from [facility].
[2021-01-28 16:27] LABS: Glucose, Whole Blood 449 mg/dL (60-115)
[2021-01-28] MEDS: cefTRIAXone sodium 1 GM in 0.9 % Sodium Chloride 50 ML IV (18:01)
--- NOTE | 2021-01-28 18:21 | PC.NURSE ---
Patient extensively educated by this RN regarding using incentive spirometer and new onset diabetic management. Patient able to check his own sugar with glucometer and self administer insulin in abdomen. Home O2 eval scheduled for tomorrow. Patient's O2 decreased from 4 L NC to 3 L NC, saturating in low 90s. Patient amb around room frequently, O2 saturating around 85%; patient reports less trouble breathing with amb compared to yesterday. Patient reports that today has been the best he has felt since admission.
[2021-01-28] MEDS: Azithromycin 500 MG in 0.9 % Sodium Chloride 250 ML 125 MG IV (18:34)
[2021-01-28 19:38] VITALS: BP 130/72; PULSE 82; RESP 18; TEMP 37; O2SAT 93
[2021-01-28 20:32] LABS: Glucose, Whole Blood 407 mg/dL (60-115)
[2021-01-28] MEDS: oxyCODONE HCl Immed Release 5 MG TABLET PO (21:39)
[2021-01-28] MEDS: traZODone HCL 100 MG TABLET PO (21:40)
[2021-01-28 23:28] VITALS: BP 105/70; PULSE 71; RESP 18; TEMP 36.2; O2SAT 95
[2021-01-28] MEDS: Benzonatate 100 MG CAPSULE PO (23:31)
[2021-01-29 02:58] VITALS: BP 106/58; PULSE 69; RESP 18; TEMP 36.6; O2SAT 93
[2021-01-29 07:57] VITALS: BP 106/61; PULSE 82; RESP 20; TEMP 36.2; O2SAT 92
[2021-01-29 08:00] LABS: Glucose, Whole Blood 229 mg/dL (60-115)
[2021-01-29] MEDS: Insulin Glargine,Hum.rec.anlog 100 UNIT/ML 10 ML VIAL 24 UNIT SUBCUT (08:49)
[2021-01-29] MEDS: Insulin Lispro 100 UNIT/ML 3 ML VIAL SUBCUT ×5 (08:50→16:45)
[2021-01-29] MEDS: dexAMETHasone sod phosphate 4 MG/ML VIAL 6 MG IVPUSH (08:51)
[2021-01-29] MEDS: Famotidine 20 MG TABLET PO (08:51)
[2021-01-29] MEDS: 0.9 % Sodium Chloride Flush 3 ML SYRINGE IVFLUSH (08:51)
[2021-01-29] MEDS: metFORMIN HCl 1,000 MG TABLET 1000 MG PO (08:51)
[2021-01-29] MEDS: Lidocaine 4 % Patch ADH..PATCH 1 PATCH TRANSDERMA (08:51)
[2021-01-29] MEDS: Benzonatate 100 MG CAPSULE PO (09:13)
[2021-01-29] MEDS: HYDROcodone/Homat 5/1.5/5 ML 5 ML SYRUP PO (09:13)
--- NOTE | 2021-01-29 10:42 | MHC.CM.PN ---
REGLA spoke with Ed[facility] at the [facility] and they will be setting up [facility] for patient. Also, insurance will cover [employer] glucometer and supplies. Covering MD notified. CM will continue to foolow patient for discharge needs.
--- NOTE | 2021-01-29 11:13 | MHC.CM.PN ---
Addendum entered by Ghada Celaya 01/29/21 13:47: Patient will have services with [facility], not able to see until Monday. patient and MD are OK with this. Original Note: [facility] will be discharged home today, [facility] Patient will also be going home on O2 from [facility]. S[facility] will provide transport. patient and nurse made aware.
[2021-01-29 11:23] LABS: Glucose, Whole Blood 367 mg/dL (60-115)
[2021-01-29 11:27] VITALS: BP 114/69; PULSE 104; RESP 20; TEMP 36.2
--- NOTE | 2021-01-29 12:29 | P.DS_ITS ---
DS: Providers Provider Date of Service: 01/29/21 Date of admission: 01/21/21 17:48 Primary care physician: Kaci Church MD Consults: 01/21/21 17:48 Consult to Infectious Diseases Routine Consulting Provider: Olga Alamo Reason for consultation: Acute respiratory failure secondary to COVID pneumonia. Has provider been notified: No Consult to Pulmonology Routine Consulting Provider: Sage Valle Reason for consultation: Acute respiratory failure secondary to COVID pneumonia. Has provider been notified: No 01/21/21 21:58 Consult to Pulmonology Stat Consulting Provider: Juan Ray Reason for consultation: COVID PNA; Pneumothorax DS: Diagnosis Discharge Diagnosis (1) Acute and chronic respiratory failure with hypoxia: Status: Acute (2) COVID-19: Status: Acute (3) Diabetes mellitus, new onset: Status: Acute DS: Medications Discharge Medications Home Medications: Home Medications Medication Instructions Recorded Confirmed trazodone 50 - 100 mg PO BEDTIME PRN 01/21/21 01/21/21 Previous Rx's Medication Instructions Recorded blood sugar diagnostic [FreeStyle #100 ea 01/29/21 Lite Strips] blood-glucose meter [FreeStyle #1 ea 01/29/21 Lite Meter] insulin syringes (disposable) #500 ea 01/29/21 lancets [FreeStyle Lancets] #100 ea 01/29/21 DS: Summary Hospital Course Hospital Course: History of presenting illness Chief Complaint: Shortness of breath due to COVID pneumonia. 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 Poor appetite. Patient said that he had Pfizer vaccine 1st dose on . 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 He has cough with some blood in it sputum aldana. Having fever from last 2-3 days, sweating for seem duration. Denies any abdominal pain or nausea or vomiting or diarrhea or any focal weakness or numbness. In the emergency room patient-found to have hypoxic and as per ED physician put on oxygen-breathing he says now slightly better, But still has pleuritic discomfort and cough as well as fever. Patient found to have fever of 101.8*f , tachycardic and tachypneic, has lymphopenia as well as elevated ferritin, LDH, C-reactive protein. CTA chest shows: Patchy ground-glass opacities consistent says with the COVID has trace pneumothorax on the left side as well. Also left side consolidation at the base with pleural effusion. In ED: Received Dexamethasone, ceftriaxone azithromycin . Hospital course 40/male with covid related resp failure, PNA, 1. Acute hypoxemic respiratory failure-secondary to COVID 19 with viral sepsis. Patient improved significantly has been ambulating with no lightheadedness dizziness or shortness of breath, is still feel weak cough he received iv Remdesivir, finished course of antibiotic and received intravenous dexamethasone, oxygen requirement has significantly improved , patient is being discharged on by mouth dexamethasone to finish a total 10 day course of antibiotic has been recommended to use cough medication as needed and to use incentive spirometry, recommend to continue isolation for 2 more days and to use mask in public, patient qualifies for 2 L of oxygen continuously. 2. Mild hyponatremia: Resolved 3. New onset diabetes--Hgb A1c is 12. Patient noted to have significantly elevated blood sugar in 300-400 range therefore placed on Lantus, pre meal insulin and metformin twice daily He has been recommended to check blood sugars before meals and bedtime and maintain a log for primary care physician, recommend diabetic diet, patient has received teaching to check blood sugar and administer insulin, steroids also contributing to high blood sugars. 3. Continue trazodone at bedtime for nightmare Time Spent with Patient Time attestation: Total time spent providing and/or coordinating discharge services: Discharge coordination time: Greater than 30 minutes Physical Exam Vital Signs: Vital Signs: Last Vital Signs Temp 97.2 F 01/29/21 11:27 Pulse 104 H 01/29/21 11:27 Resp 20 01/29/21 11:27 BP 114/69 01/29/21 11:27 Pulse Ox 92 01/29/21 07:57 Body Mass Index 30.7 General: no acute distress, resting in bed Neck no JVD Resp: Diminished breath sounds, no accessory muscle use, able to talk in full sentence, no respiratory distress CVS: S1,S2, on monitor GI: Nontender bowel sounds audible Skin: No rash Neuro: grossly intact, steady gait Psych: appropriate affect DS: Data Data Completed and Pending Labs on day of discharge: Laboratory Results - last 24 hr 01/28/21 01/28/21 01/29/21 16:22 20:20 07:55 POC Glucose 449 H* 407 H* 229 H 01/29/21 11:19 POC Glucose 367 H* Discharge Plan Discharge Patient Disposition: Home Health Service Referrals: Kaci Church MD [Primary Care Provider] - Discharge Medications: New (DME) lancets [FreeStyle Lancets] 28 gauge misc See Rx Instructions .ROUTE .MEDSUPPLY Qty: 100 RF: 0 (DME) blood-glucose meter [FreeStyle Lite Meter] Kit See Rx Instructions .ROUTE .MEDSUPPLY Qty: 1 RF: 0 (DME) FreeStyle Lite Strips Strip See Rx Instructions .ROUTE .MEDSUPPLY Qty: 100 RF: 0 (DME) insulin syringes (disposable) 1 mL syringe See Rx Instructions .ROUTE .MEDSUPPLY Qty: 500 RF: 0 metformin 1,000 mg Tablet 1,000 mg PO BIDWM Qty: 60 RF: 0 alcohol swabs [Alcohol Wipes] Pads, Medicated 1 pad topical QIDACHS Qty: 200 RF: 0 benzonatate 100 mg Capsule 100 mg PO TID PRN (Reason: Cough) Qty: 24 RF: 0 insulin lispro [Humalog U-100 Insulin] 100 unit/mL Solution 10 unit subcut TIDAC Qty: 10 RF: 0 Lantus U-100 Insulin 100 unit/mL Solution 24 unit subcut DAILY Qty: 10 RF: 0 dexamethasone 6 mg tablet 6 mg PO DAILY Qty: 3 RF: 0 Continued trazodone 100 mg Tablet 50 - 100 mg PO BEDTIME PRN (Reason: Insomnia) RF: 0 Discharge Orders: Discharge Order (Routine); Ordered 01/29/21 Ordered By: Jose Liang Diet: diabetic diet Activity on Discharge: As tolerated Stand Alone Forms: Patient Portal Discharge page Care Plan Goals: Return to check with any worsening symptoms of lightheadedness dizziness, or worsening shortness of breath. Health Concerns: New onset diabetes mellitus check blood sugar before meals and at bedtime and document in a diary to show it to primary care physician and adjust insulin dose Follow diabetic diet rest. Plan of Treatment: Outpatient follow-up with primary care physician in 1 week Assessment: See discharge summary
[2021-01-29 13:21] VITALS: PULSE 100; PULSE 106; PULSE 98; PULSE 99; O2SAT 84; O2SAT 87; O2SAT 91
[2021-01-29 15:50] VITALS: BP 117/72; PULSE 91; RESP 19; TEMP 36; O2SAT 93
[2021-01-29 16:14] LABS: Glucose, Whole Blood 359 mg/dL (60-115)
== END 2021-01-29 05:00 | disposition home health service (06) | DRG 871 ==
LOC: HO.ED 16:29 → HO.EDOVER 17:55 → HO.IMC 18:20
PROVIDERS: Hospitalist; Internal Medicine; Nurse Practitioner Primary Care; Admitting Provider Internal Medicine; Emergency Provider Internal Medicine; PCP Surgery Surgical Oncology; Visit Provider Hospitalist
DX: A41.89 Other specified sepsis (principal); U07.1 COVID-19; J12.82 Pneumonia due to coronavirus disease 2019; J80 Acute respiratory distress syndrome; E87.1 Hypo-osmolality and hyponatremia; J91.8 Pleural effusion in other conditions classified elsewhere; R04.2 Hemoptysis; J93.9 Pneumothorax, unspecified; E11.9 Type 2 diabetes mellitus without complications; R65.20 Severe sepsis without septic shock; F51.5 Nightmare disorder; G47.9 Sleep disorder, unspecified; Z79.899 Other long term (current) drug therapy
CPT/HCPCS: 36415; 71045; 71275; 80048; 80053; 80076; 81001; 82009; 82728; 82947; 83036; 83605; 83615; 83880; 84145; 84484; 85025; 85027; 85379; 85610; 85730; 86140; 87040; 93005; 96365; 96366; 96367; 96375; 99285; J0456; J0696; J1100; J1170; J2270; J2405; J3490; Q9967

== ENCOUNTER 2021-02-11 13:32 | Outpatient (REF) | payer OTHER, SELFPAY ==
--- NOTE | ~2021-02-11 | XR_ITS ---
EXAMINATION: XR CHEST CLINICAL INFORMATION: Covid 19 COMPARISON: January 21, 2021 TECHNIQUE: 2 views of the chest were obtained. FINDINGS: Patient has developed a large fluid collection with air-fluid fluid level within the left hemithorax with shift of mediastinal structures to the right is difficult to tell whether this may represent empyema versus pleural collection. Bronchial pleural fistula not excluded. Heart normal size. No evidence of edema. No right-sided effusion is identified. XR/XR chest 2V IMPRESSION: Large left hemithorax fluid collection with air-fluid level which may be related to empyema.
== END 2021-02-11 13:33 | disposition home or self-care (01) ==
LOC: HO.XRAY 13:32
PROVIDERS: PCP Nurse Practitioner Family; Visit Provider Internal Medicine
DX: U07.1 COVID-19 (principal); J96.21 Acute and chronic respiratory failure with hypoxia; R05 Cough; E11.9 Type 2 diabetes mellitus without complications
CPT/HCPCS: 71046; 99212

== ENCOUNTER 2021-02-11 17:05 | Inpatient (IN) | payer OTHER, SELFPAY ==
--- NOTE | ~2021-02-11 | CT_ITS ---
EXAMINATION: CT CHEST WITHOUT CONTRAST CLINICAL INFORMATION: Left-sided massive pleural effusion COMPARISON: Chest radiograph earlier today and CT chest 01/21/2021 TECHNIQUE: Multidetector volumetric CT imaging of the chest was done. Axial MIP volume rendering provided. Sagittal and coronal reformatted images were obtained. This CT examination was performed using dose optimization techniques as appropriate, variously including the following: *Automated exposure control *Adjustment of mA and/or kV according to patient size (this includes techniques or standardized protocols for targeted exams where dose is matched to indication/reason for exam; i.e. extremities or head) *Use of iterative reconstruction technique DLP: 388 mGy-cm FINDINGS: LUNGS and PLEURA: Again seen is a large left sided loculated pleural collection with an air-fluid level suspicious for an empyema. It is unchanged from the chest radiograph earlier today but new when compared to the previous studies from 01/21/2021. This collection measures 16.5 10.5 x 21 cm. There is very little aerated lung present on the left which is too small portion of the upper lobe aerated with complete collapse of the left lower lobe. The left lower lobe bronchus can be seen to occlude. No right-sided effusion is seen. Previously seen groundglass infiltrates in the lungs have almost completely resolved. Some small nodular opacities remain (see saved pride images) the largest 6 mm at the left apex (5:79). MEDIASTINUM: Small mediastinal lymph nodes are present, presumably inflammatory. No pericardial effusion seen. AXILLA: No lymphadenopathy. UPPER ABDOMEN: Probable hepatic steatosis. Characteristic hypoattenuating region adjacent to falciform ligament probably secondary to increased focal fat deposition. OSSEOUS STRUCTURES: Unremarkable. CT/CT chest wo con IMPRESSION: Improved Covid infiltrates but new large loculated left pleural collection with an air-fluid level suspicious for empyema. Nonemergent percutaneous sampling is recommended.
[2021-02-11 17:16] VITALS: BP 127/73; PULSE 120; RESP 24; TEMP 37.3; O2SAT 95; BMI 28.8
--- NOTE | 2021-02-11 20:07 | ED_ITS ---
HPI - SOB/Dyspnea General Chief Complaint: Dyspnea Stated Complaint: Fluid build up around lungs Time Seen by Provider: 02/11/21 20:07 Source: patient Mode of arrival: ambulatory Limitations: no limitations History of Present Illness HPI Narrative: Patient had 1st dose of COVID vaccine on 01/08 within a week of that patient became sick with shortness of breath admitted to the hospital for COVID pneumonia with hypoxia discharged on 01/29 comes back with increased shortness of breath for last few days had chest x-ray done today which showed large loculated left pleural effusion with air-fluid levels suspicious of empyema patient denies any fever feels little more short of breath lately and 40 cough when taking deep breath patient on 2 L of oxygen at home saturating more than 95%. MD elicited complaint: shortness of breath and pain with inspiration Related Data Home Medications Medication Instructions Recorded Confirmed insulin glargine [Lantus U-100 24 unit SUBCUT DAILY 02/11/21 02/11/21 Insulin] insulin lispro [Humalog U-100 10 unit SUBCUT TID 02/11/21 02/11/21 Insulin] metformin 1 tab PO BID 02/11/21 02/11/21 prednisone 02/11/21 promethazine-codeine 5 ml PO Q4-6H PRN 02/11/21 02/11/21 Allergies Allergy/AdvReac Type Severity Reaction Status Date / Time tree nut [TREE NUT] Allergy Severe ANAPHYLAXIS Verified 02/11/21 20:06 Review of Systems Review of Systems: Constitutional : No Weight loss, No Fever, No Chills ENT/Mouth : No sore throat, No Rhinorrhea Eyes: No Eye Pain, No Swelling Cardiovascular : No Chest Pain, no palpitations Respiratory : +Cough, No Sputum, + shortness of breath Gastrointestinal : no Nausea, No Vomiting, No Diarrhea, No abdominal Pain, no black stools Genitourinary : No Dysuria, No Urinary Frequency Musculoskeletal : No joint pain, No Myalgias, No Joint Swelling Skin : No Skin Lesions, No rash Neuro : No Weakness, No Numbness, No Dizziness, No Headache Psych : No Anxiety/Panic, No Depression Heme/Lymph: No Bruising, No Lymphadenopathy Endocrine : No Polyuria, No Polydipsia All other systems reviewed and are negative [facility] Past Medical History Medical History (Updated 02/11/21 @ 14:37 by Juan Ray MD) Cough Nightmare No known health problems Social History Social History Household Members: Significant Other Housing: House Smoking Status: Never smoker Advance Directives: No service: Yes Current occupational status: employed Physical Exam Vital Signs: Vital Signs: Last Vital Signs Temp 100.6 F H 02/11/21 21:07 Pulse 109 H 02/11/21 21:07 Resp 18 02/11/21 23:50 BP 123/78 02/11/21 21:07 Pulse Ox 96 02/11/21 21:07 Body Mass Index 28.8 Appearance: Alert. Oriented X3. Moderate distress. Sick looking patient Eyes: Pupils equal, round and reactive to light. ENT: Pharynx normal. Neck: Normal inspection. Neck supple. CVS: Normal heart rate and rhythm. Pulses normal. Respiratory: Mild respiratory distress. Decreased air entry left lung with dullness to percussion. Good air entry on the right side no crackles Abdomen: Soft and nontender. Bowel sounds are present, no mass palpable, no CVA tenderness Skin: Skin warm and dry. Normal skin color. Normal skin turgor. Extremities: No lower extremity edema. No calf tenderness Neuro: Oriented X 3. No motor deficit. No sensory deficit. MDM - SOB/Dyspnea MDM Narrative Medical decision making narrative: Patient with left hemithorax post COVID normal WBC count no signs of sepsis. Will admit patient for IR guided tap of fluid to rule out empyema versus serous effusion. At this time there is no signs of bacterial infection or sepsis will wait for IR guided pleural fluid tap before starting on antibiotics Medical Records Attestation: I reviewed the patient's medical records. Lab Data Attestation: I reviewed the patient's lab results. Result diagrams: 02/11/21 21:05 02/11/21 21:05 Labs: Lab Results 02/11/21 02/11/21 02/11/21 Range/Units 21:05 21:05 21:05 WBC 5.2 (4.8-10.8) X10*3/uL RBC 3.98 L D (4.60-5.80) X10*6/uL Hgb 10.8 L D (14.0-18.0) g/dl Hct 32.9 L D (42-52) % MCV 82.7 (80-98) fL MCH 27.1 (27.0-33.0) pg MCHC 32.8 (31.0-36.0) g/dl RDW 13.0 (11.0-16.0) % Plt Count 268 D (160-400) X10*3/uL MPV 9.8 (9.4-12.4) fL Immature Gran % (Auto) Cancelled Neut % (Auto) Cancelled Lymph % (Auto) Cancelled Heard % (Auto) Cancelled Eos % (Auto) Cancelled Baso % (Auto) Cancelled Lymph # (Auto) Cancelled Heard # (Auto) Cancelled Eos # (Auto) Cancelled Baso # (Auto) Cancelled Abs Immat Gran (auto) Cancelled Absolute Neuts (auto) Cancelled Absolute Nucleated RBC 0.000 (0.0-0.012) X10*3/uL Nucleated RBC % (auto) 0.0 (0.0-0.2) /100WBC Neutrophils % (Manual) 61 (45-73) % Band Neutrophils % 3 (3-5) % Lymphocytes % (Manual) 18 L (20-40) % Atypical Lymphs % (Man) 1 (0-6) % Monocytes % (Manual) 17 H (2-11) % Abs Neuts (Manual) 3.3 (2.2-7.9) X10*3/uL Lymphocytes # (Manual) 0.9 (0.6-4.8) X10*3/uL Atyp Lymphs # (Manual) 0.1 x10*3/uL Monocytes # (Manual) 0.9 (0.0-1.2) X10*3/uL Toxic Granulation PRESENT Toxic Vacuolation PRESENT Dohle Bodies PRESENT Platelet Estimate NORMAL (NORMAL) Large Platelets PRESENT Giant Platelets PRESENT Plt Morphology Comment NOTED RBC Morphology NOTED Polychromasia 1+ (0-2) /OIF Microcytosis 1+ (5-14) /OIF Tear Drop Cells 1+ (0-2) /OIF ESR 104 H (0-15) MM/HR PT 17.8 H (10.8-13.0) SEC INR 1.5 H (0.9-1.1) APTT 31.6 (24.1-38.0) SEC Sodium (135-145) mmol/L Potassium (3.3-5.1) mmol/L Chloride (96-108) mmol/L Carbon Dioxide (22-29) mmol/L Anion Gap (12-20) BUN (9-16) mg/dL Creatinine (0.5-1.4) mg/dL Estim Creat Clear Calc Estimated GFR Random Glucose (60-115) mg/dL Lactic Acid (0.5-2.0) mmol/L Calcium (8.4-10.2) mg/dL Total Bilirubin (0.0-1.0) mg/dL Direct Bilirubin (0.0-0.5) mg/dL AST (5-37) U/L ALT (0-40) U/L Alkaline Phosphatase (39-117) U/L Total Protein (6.5-8.0) g/dL Albumin (3.5-5.0) g/dL 02/11/21 02/11/21 Range/Units 21:05 21:05 WBC (4.8-10.8) X10*3/uL RBC (4.60-5.80) X10*6/uL Hgb (14.0-18.0) g/dl Hct (42-52) % MCV (80-98) fL MCH (27.0-33.0) pg MCHC (31.0-36.0) g/dl RDW (11.0-16.0) % Plt Count (160-400) X10*3/uL MPV (9.4-12.4) fL Immature Gran % (Auto) Neut % (Auto) Lymph % (Auto) Heard % (Auto) Eos % (Auto) Baso % (Auto) Lymph # (Auto) Heard # (Auto) Eos # (Auto) Baso # (Auto) Abs Immat Gran (auto) Absolute Neuts (auto) Absolute Nucleated RBC (0.0-0.012) X10*3/uL Nucleated RBC % (auto) (0.0-0.2) /100WBC Neutrophils % (Manual) (45-73) % Band Neutrophils % (3-5) % Lymphocytes % (Manual) (20-40) % Atypical Lymphs % (Man) (0-6) % Monocytes % (Manual) (2-11) % Abs Neuts (Manual) (2.2-7.9) X10*3/uL Lymphocytes # (Manual) (0.6-4.8) X10*3/uL Atyp Lymphs # (Manual) x10*3/uL Monocytes # (Manual) (0.0-1.2) X10*3/uL Toxic Granulation Toxic Vacuolation Dohle Bodies Platelet Estimate (NORMAL) Large Platelets Giant Platelets Plt Morphology Comment RBC Morphology Polychromasia /OIF Microcytosis /OIF Tear Drop Cells /OIF ESR (0-15) MM/HR PT (10.8-13.0) SEC INR (0.9-1.1) APTT (24.1-38.0) SEC Sodium 134 L (135-145) mmol/L Potassium 3.2 L D (3.3-5.1) mmol/L Chloride 91 L (96-108) mmol/L Carbon Dioxide 30 H (22-29) mmol/L Anion Gap 16 (12-20) BUN 9 D (9-16) mg/dL Creatinine 0.61 (0.5-1.4) mg/dL Estim Creat Clear Calc 184.6 Estimated GFR > 60 Random Glucose 159 H D (60-115) mg/dL Lactic Acid 1.5 (0.5-2.0) mmol/L Calcium 8.4 (8.4-10.2) mg/dL Total Bilirubin 0.4 (0.0-1.0) mg/dL Direct Bilirubin 0.3 (0.0-0.5) mg/dL AST 23 (5-37) U/L ALT 42 H (0-40) U/L Alkaline Phosphatase 113 D (39-117) U/L Total Protein 6.6 (6.5-8.0) g/dL Albumin 3.0 L (3.5-5.0) g/dL Imaging Data CT scan - chest: Radiologist's impression: [address] [id number] Scan ReportSigned Patient: Jair Irizarry IIIMR#: [id number]: 1980Acct:[id number] /Sex: 40 / MADM Date: 02/11/21Loc: EDAttjessie Dr: Ordering Physician: Gallo Curiel MD Date of Service: 02/11/21 Procedure(s): CT chest wo con Accession Number(s): [id number] cc: Gallo Curiel MD~ EXAMINATION: CT CHEST WITHOUT CONTRAST CLINICAL INFORMATION: Left-sided massive pleural effusion COMPARISON: Chest radiograph earlier today and CT chest 01/21/2021 TECHNIQUE: Multidetector volumetric CT imaging of the chest was done. Axial MIP volume rendering provided. Sagittal and coronal reformatted images were obtained. This CT examination was performed using dose optimization techniques as appropriate, variously including the following: *Automated exposure control *Adjustment of mA and/or kV according to patient size (this includes techniques or standardized protocols for targeted exams where dose is matched to indication/reason for exam; i.e. extremities or head) *Use of iterative reconstruction technique DLP: 388 mGy-cm FINDINGS: LUNGS and PLEURA: Again seen is a large left sided loculated pleural collection with an air-fluid level suspicious for an empyema. It is unchanged from the chest radiograph earlier today but new when compared to the previous studies from 01/21/2021. This collection measures 16.5 10.5 x 21 cm. There is very little aerated lung present on the left which is too small portion of the upper lobe aerated with complete collapse of the left lower lobe. The left lower lobe bronchus can be seen to occlude. No right-sided effusion is seen. Previously seen groundglass infiltrates in the lungs have almost completely resolved. Some small nodular opacities remain (see saved pride images) the largest 6 mm at the left apex (5:79). MEDIASTINUM: Small mediastinal lymph nodes are present, presumably inflammatory. No pericardial effusion seen. AXILLA: No lymphadenopathy. UPPER ABDOMEN: Probable hepatic steatosis. Characteristic hypoattenuating region adjacent to falciform ligament probably secondary to increased focal fat deposition. OSSEOUS STRUCTURES: Unremarkable. CT/CT chest wo con IMPRESSION: Improved Covid infiltrates but new large loculated left pleural collection with an air-fluid level suspicious for empyema. Nonemergent percutaneous sampling is recommended. Dictated By:ANN MARIE MOY MDSigned By:<Electronically signed by ANN MARIE MOY MD in OV>02/11/21 [id number]
[2021-02-11 21:07] VITALS: BP 123/78; PULSE 109; RESP 37; TEMP 38.1; O2SAT 96
[2021-02-11 21:14] LABS: Hematocrit 32.9 % (42-52); Hemoglobin 10.8 g/dl (14.0-18.0); Mean Corpuscular HGB Conc 32.8 g/dl (31.0-36.0); Mean Corpuscular Hemoglobin 27.1 pg (27.0-33.0); Mean Corpuscular Volume 82.7 fL (80-98); Mean Platelet Volume 9.8 fL (9.4-12.4); Platelet Count 268 X10*3/uL (160-400); Red Blood Count 3.98 X10*6/uL (4.60-5.80); White Blood Count 5.2 X10*3/uL (4.8-10.8)
[2021-02-11 21:29] LABS: INTERNATIONAL NORM RATIO 1.5 (0.9-1.1); Prothrombin Time 17.8 SEC (10.8-13.0)
[2021-02-11 21:32] LABS: Partial Thromboplastin Time 31.6 SEC (24.1-38.0)
[2021-02-11 21:35] LABS: Lactic Acid 1.5 mmol/L (0.5-2.0)
[2021-02-11 21:41] LABS: Alanine Aminotransferase 42 U/L (0-40); Alkaline Phosphatase 113 U/L (39-117); Anion Gap 16 (12-20); Aspartate Amino Transferase 23 U/L (5-37); Bilirubin Direct 0.3 mg/dL (0.0-0.5); Bilirubin Total 0.4 mg/dL (0.0-1.0); Blood Urea Nitrogen 9 mg/dL (9-16); Calcium 8.4 mg/dL (8.4-10.2); Carbon Dioxide 30 mmol/L (22-29); Chloride 91 mmol/L (96-108); Creatinine Clr Calc Pharmacy 184.6; Estimated Glomerular Filt Rate > 60; Glucose Random 159 mg/dL (60-115); Potassium 3.2 mmol/L (3.3-5.1); Sodium 134 mmol/L (135-145); Total Protein 6.6 g/dL (6.5-8.0)
[2021-02-11 21:46] LABS: Atypical Lymph Absolute Manual 0.1 x10*3/uL; Atypical Lymphs Percent Manual 1 % (0-6); Band Neutrophils Percent 3 % (3-5); Dohle Bodies PRESENT; Giant Platelet PRESENT; Large Platelet PRESENT; Lymphocytes Absolute Manual 0.9 X10*3/uL (0.6-4.8); Lymphocytes Percent Manual 18 % (20-40); Microcytosis 1+ (5-14) /OIF; Monocytes Absolute Manual 0.9 X10*3/uL (0.0-1.2); Monocytes Percent Manual 17 % (2-11); Neutrophils Absolute Manual 3.3 X10*3/uL (2.2-7.9); Neutrophils Percent Manual 61 % (45-73); Platelet Estimate NORMAL (NORMAL); Platelet Morphology Comment NOTED; RBC Morphology NOTED; Toxic Granulation PRESENT; Toxic Vacuolation PRESENT
[2021-02-11 21:47] LABS: Polychromasia 1+ (0-2) /OIF; Tear Drop Cells 1+ (0-2) /OIF
[2021-02-11 21:57] LABS: Erythrocyte Sedimentation Rate 104 MM/HR (0-15)
[2021-02-11 23:50] VITALS: RESP 18
[2021-02-11] MEDS: Morphine Sulfate 4 MG/ML CARTRIDGE IVPUSH (23:50)
[2021-02-11] MEDS: ondansetron HCL 4 MG/2 ML VIAL IVPUSH (23:51)
[2021-02-12] VITALS (16 sets, daily range): BP systolic 107–123; BP diastolic 61–76; PULSE 88–109; RESP 16–30; TEMP 37–38.3; O2SAT 94–98
[2021-02-12 01:52] LABS: COVID-19 Test Negative (Negative); IDNOW Serial# 9DD0AD1C
[2021-02-12] MEDS: HYDROcodone/Homat 5/1.5/5 ML 5 ML SYRUP PO ×3 (02:53→16:25)
[2021-02-12] MEDS: Acetaminophen 325 MG TABLET 650 MG PO ×3 (02:53→18:30)
[2021-02-12] MEDS: 0.9 % Sodium Chloride Flush 3 ML SYRINGE IVFLUSH ×4 (02:56→20:29)
--- NOTE | 2021-02-12 06:04 | P.HPHOSP_ITS ---
History of Present Illness Date of Service: 02/11/21 Chief Complaint: Shortness of breath This is a 40-year-old male with history of diabetes who was recently discharged from the hospital after an extensive stay secondary to COVID-19 pneumonia returns to the hospital with complaints of significant cough as well as shortness of breath. Cough is productive of liquid phlegm, associated with significant abdominal wall and chest wall pain, he is also complaining of shortness of breath. He was seen by his aircraft skin burnisher on day of presentation underwent a chest x-ray which showed a large left-sided loculated pulmonary effusion. And therefore his aircraft skin burnisher asked him to come to the hospital. He denies any fever but has chills, no headache or change in vision, no chest pain, no diarrhea constipation, no nausea or vomiting, no urinary symptoms and no lower extremity edema. On arrival to the ED patient found to have a temp of 100.6?, pulse rate of 109, respiratory rate of 37, blood pressure 123/78, satting 96% on room air. Labs are significant for WBC count of 5.2, Hgb of 10.8, hematocrit 32.9, ESR of 104, PT of 17.8, INR of 1.5, sodium of 132, potassium of 3.2, chloride of 91, ALT 42 albumin of 3.[address] demonstrates improved COVID infiltrates but new large loculated left pleural collection with an air-fluid level suspicious for empyema Patient will be admitted for further management Review of Systems Review of Systems: Yes all other systems are reviewed and are negative [facility] Medical History (Updated 02/12/21 @ 06:22 by Araseli Henderson MD) Cough Diabetes Nightmare No known health problems Pneumonia due to COVID-19 virus Social History Household Members: Significant Other Housing: House Smoking Status: Never smoker Advance Directives: No service: Yes Current occupational status: employed Meds Allergies Allergy/AdvReac Type Severity Reaction Status Date / Time tree nut [TREE NUT] Allergy Severe ANAPHYLAXIS Verified 02/11/21 20:06 Active Medications: Current Medications Generic Name Dose Route Start Last Admin Trade Name Freq PRN Reason Stop Dose Admin Acetaminophen 650 mg 02/11/21 23:53 02/12/21 02:53 Acetaminophen 325 Mg Tablet PO 650 mg Q6H PRN Administration Pain, Mild (Pain Scale 1-3) Docusate Sodium 100 mg 02/11/21 23:53 Docusate Sodium 100 Mg Capsule PO DAILY PRN Constipation Hydrocodone Bit/Homatropine Methylb 5 ml 02/11/21 23:06 02/12/21 02:53 Hydrocodone/Homat 5/1.5/5 Ml 5 Ml Syrup PO 5 ml Q6H PRN Administration Cough Ondansetron HCl 4 mg 02/11/21 23:53 Ondansetron Hcl 4 Mg/2 Ml Vial IVPUSH Q8H PRN Nausea and Vomiting Sodium Chloride 3 ml 02/12/21 00:00 02/12/21 02:56 0.9 % Sodium Chloride Flush 3 Ml Syringe [facility] 3 [facility] Administration Home Medications Medication Instructions Recorded Confirmed Last Taken Type insulin glargine [Lantus U-100 24 unit SUBCUT DAILY 02/11/21 02/11/21 02/11/21 History Insulin] insulin lispro [Humalog U-100 10 unit SUBCUT TID 02/11/21 02/11/21 02/11/21 History Insulin] metformin 1 tab PO BID 02/11/21 02/11/21 02/11/21 History prednisone 02/11/21 Unknown History promethazine-codeine 5 ml PO Q4-6H PRN 02/11/21 02/11/21 02/11/21 History Physical Exam Vital Signs and Narrative: Vital Signs: Last Vital Signs Temp 99.5 F 02/12/21 03:09 Pulse 102 H 02/12/21 03:09 Resp 28 H 02/12/21 03:09 BP 114/70 02/12/21 03:09 Pulse Ox 95 02/12/21 03:09 Body Mass Index 28.8 Const: General: cooperative, no acute distress, ill appearing and tired appearing Orientation/consciousness: patient oriented x3 Eyes: General: appearance normal, both eyes and all related structures Resp: Effort & Inspection: normal respiratory effort, able to speak in complete sentences and Actively coughing Cardio: Rate: regular rate Rhythm: regular rhythm GI: Palpation (GI): Soft to palpation Auscultation: normal bowel sounds Skin: General skin exam: no rashes or lesions noted Neuro: General: patient oriented x3 Cognition (Neuro): normal cognition Extrem: General: Yes normal to inspection and Yes no pedal edema Results Labs CBC and Chem 7: 02/11/21 21:05 02/11/21 21:05 Labs: Laboratory Results - last 24 hr 02/11/21 02/11/21 02/11/21 21:05 21:05 21:05 MCV 82.7 MCH 27.1 MCHC 32.8 RDW 13.0 Plt Count 268 D MPV 9.8 Immature Gran % (Auto) Cancelled Neut % (Auto) Cancelled Lymph % (Auto) Cancelled Queens % (Auto) Cancelled Eos % (Auto) Cancelled Baso % (Auto) Cancelled Lymph # (Auto) Cancelled [place] # (Auto) Cancelled Eos # (Auto) Cancelled Baso # (Auto) Cancelled Abs Immat Gran (auto) Cancelled Absolute Neuts (auto) Cancelled Absolute Nucleated RBC 0.000 Nucleated RBC % (auto) 0.0 Neutrophils % (Manual) 61 Band Neutrophils % 3 Lymphocytes % (Manual) 18 L Atypical Lymphs % (Man) 1 Monocytes % (Manual) 17 H Abs Neuts (Manual) 3.3 Lymphocytes # (Manual) 0.9 Atyp Lymphs # (Manual) 0.1 Monocytes # (Manual) 0.9 Toxic Granulation PRESENT Toxic Vacuolation PRESENT Dohle Bodies PRESENT Platelet Estimate NORMAL Large Platelets PRESENT Giant Platelets PRESENT Plt Morphology Comment NOTED RBC Morphology NOTED Polychromasia 1+ (0-2) Microcytosis 1+ (5-14) Tear Drop Cells 1+ (0-2) ESR 104 H PT 17.8 H INR 1.5 H APTT 31.6 Anion Gap Estim Creat Clear Calc Estimated GFR Random Glucose Lactic Acid Calcium Total Bilirubin Direct Bilirubin AST ALT Alkaline Phosphatase Total Protein Albumin COVID-19 (KEVAN) COVID-19 Clin Com 02/11/21 02/11/21 02/12/21 21:05 21:05 01:19 MCV MCH MCHC RDW Plt Count MPV Immature Gran % (Auto) Neut % (Auto) Lymph % (Auto) Queens % (Auto) Eos % (Auto) Baso % (Auto) Lymph # (Auto) [place] # (Auto) Eos # (Auto) Baso # (Auto) Abs Immat Gran (auto) Absolute Neuts (auto) Absolute Nucleated RBC Nucleated RBC % (auto) Neutrophils % (Manual) Band Neutrophils % Lymphocytes % (Manual) Atypical Lymphs % (Man) Monocytes % (Manual) Abs Neuts (Manual) Lymphocytes # (Manual) Atyp Lymphs # (Manual) Monocytes # (Manual) Toxic Granulation Toxic Vacuolation Dohle Bodies Platelet Estimate Large Platelets Giant Platelets Plt Morphology Comment RBC Morphology Polychromasia Microcytosis Tear Drop Cells ESR PT INR APTT Anion Gap 16 Estim Creat Clear Calc 184.6 Estimated GFR > 60 Random Glucose 159 H D Lactic Acid 1.5 Calcium 8.4 Total Bilirubin 0.4 Direct Bilirubin 0.3 AST 23 ALT 42 H Alkaline Phosphatase 113 D Total Protein 6.6 Albumin 3.0 L COVID-19 (KEVAN) Negative COVID-19 Clin Com See Note Imaging Radiologist's Impressions: Impressions Chest CT 02/11/21 20:34 IMPRESSION: Improved Covid infiltrates but new large loculated left pleural collection with an air-fluid level suspicious for empyema. Nonemergent percutaneous sampling is recommended. Assessment and Plan (1) Cough: Problem details: COUGH IS RATHER SEVERE AND MAKES HIM TIRED, WITH CHEST DISCOMFORT. BENZONATATE PERLES DID NOT HELP MUCH. OKAY TO USE MUCINEX 600 MG B.I.D.. PROMETHAZINE WITH CODEINE 6.5 MG 1 OR 2 TSP Q 6 HOURS P.R.N. FOR SEVERE COUGH, ADVISED TO USE THIS MOSTLY AT NIGHTTIME. Status: Acute (2) Empyema: Status: Acute 40-year-old male with recently diagnosed COVID-19 pneumonia who presents to the hospital with complaints of cough found to have a large pleural collection concerning for empyema # cough - most likely sequelae of COVID-19 as well as the pleural collection/empyema - will start him on Hycodan cough medicine - no evidence of new pneumonia on CT scan with improvements of his COVID-19 infiltrate # pleural collection/empyema - no leukocytosis, did developed fever while in the ED - most likely sequelae of COVID-19 infection - will consult pulmonology - Zosyn and vanc - monitor respiratory status # diabetes mellitus - continue home insulin - add low-dose sliding scale insulin - diabetic diet - hold oral antihyperglycemics DVT prophylaxis: SCDs in anticipation of possible biopsy/thoracocentesis
[2021-02-12 06:53] LABS: Anion Gap 16 (12-20); Blood Urea Nitrogen 6 mg/dL (9-16); Calcium 8.4 mg/dL (8.4-10.2); Carbon Dioxide 31 mmol/L (22-29); Chloride 92 mmol/L (96-108); Creatinine Clr Calc Pharmacy 194.1; Estimated Glomerular Filt Rate > 60; Glucose Random 147 mg/dL (60-115); Potassium 3.2 mmol/L (3.3-5.1); Sodium 136 mmol/L (135-145)
[2021-02-12 07:00] LABS: Hematocrit 32.2 % (42-52); Hemoglobin 10.6 g/dl (14.0-18.0); Mean Corpuscular HGB Conc 32.9 g/dl (31.0-36.0); Mean Corpuscular Hemoglobin 27.2 pg (27.0-33.0); Mean Corpuscular Volume 82.8 fL (80-98); Mean Platelet Volume 10.3 fL (9.4-12.4); Platelet Count 266 X10*3/uL (160-400); Red Blood Count 3.89 X10*6/uL (4.60-5.80); Red Cell Distribution Width 13.2 % (11.0-16.0)
[2021-02-12 07:05] LABS: WBC ABN SCTR FOR CBC 1
[2021-02-12 07:40] LABS: Atypical Lymphs Percent Manual 2 % (0-6); Band Neutrophils Percent 9 % (3-5); Basophils Percent Manual 2 % (0-1); Eosinophils Percent Manual 2 % (0-4); Lymphocytes Percent Manual 29 % (20-40); Monocytes Percent Manual 11 % (2-11); Neutrophils Percent Manual 45 % (45-73)
[2021-02-12] MEDS: Potassium Chloride Packet 20 MEQ PACKET 40 MEQ PO ×2 (07:42→11:42)
[2021-02-12] MEDS: oxyCODONE HCl Immed Release 5 MG TABLET PO ×2 (07:42→16:21)
[2021-02-12] MEDS: Piperacillin Sodium/Tazobactam 3.375 GM in 0.9 % Sodium Chloride 50 ML IV ×3 (07:43→18:32)
[2021-02-12 07:47] LABS: Dohle Bodies PRESENT; Polychromasia 1+ (0-2) /OIF; RBC Morphology NOTED
[2021-02-12 07:48] LABS: Platelet Estimate NORMAL (NORMAL); Platelet Morphology Comment NORMAL
[2021-02-12 07:51] LABS: Tear Drop Cells 1+ (0-2) /OIF
[2021-02-12 07:53] LABS: Atypical Lymph Absolute Manual 0.1 x10*3/uL; Basophils Abs Manual 0.1 X10*3/uL (0.0-0.3); Eosinophils Absolute Manual 0.1 X10*3/UL (0.0-0.8); Lymphocytes Absolute Manual 1.7 X10*3/uL (0.6-4.8); Monocytes Absolute Manual 0.6 X10*3/uL (0.0-1.2); Neutrophils Absolute Manual 3.1 X10*3/uL (2.2-7.9); White Blood Count 5.7 X10*3/uL (4.8-10.8)
[2021-02-12 07:55] LABS: Glucose, Whole Blood 123 mg/dL (60-115)
--- NOTE | 2021-02-12 09:35 | MHC.CM.PN ---
Attempted to meet with patient in regards to discharge planning. Patient currently sleeping. No family present. Patient was d/c'd from [facility] with [facility]. Referral made to [facility]. Case management assessment not completed at this time. Will attempt to meet again. Continue to monitor for d/c needs.
--- NOTE | 2021-02-12 10:01 | P.CDIC_ITS ---
CDI Concurrent Query Service Date: 02/12/21 Documentation Clarification: Please clarify if you are treating a proba ble/suspected/likely or confirmed: Sepsis, present on admission' No Sepsis Provider Response: Sepsis PLEASE DO NOT DELETE/MODIFY EXISTING CONTENT Additional information is needed in order to code to the highest accuracy and appropriate Severity of Illness (SOI). Please clarify the information noted below in your progress notes and discharge summary. Risk Factors/Clinical Indicators/Treatments 40 year old male admitted with dyspnea, mild respiratory distress, recent admission for COVID-19 T100.6, P 109, R37, BP 123/78, 96% Per H&P: Acute Empyema Sequela of COVID-19 Treated with 4 liters oxygen and IV antibiotic Blood culture pending CDS: Neena Chand RN Contact Number: [phone] Please Review the information above and exercise your independent professional judgment in responding to the query. If you concur, pleas document in the PROGRESS NOTES and DISCHARGE SUMMARY. If you do not agree with the query, please document in the query above. THIS QUERY IS PART OF THE PERMANENT MEDICAL RECORD
[2021-02-12] MEDS: vancomycin HCL 1,500 MG in 0.9 % Sodium Chloride 500 ML 333.33 MG IV (10:20)
--- NOTE | 2021-02-12 10:53 | PC.NURSE ---
PT SEEN BY HOSP AWARE OF PLAN OF CARE FOR ADMISSION TO HOSP.
[2021-02-12 12:45] LABS: Glucose, Whole Blood 157 mg/dL (60-115)
[2021-02-12] MEDS: Insulin Lispro 100 UNIT/ML 3 ML VIAL SUBCUT ×3 (12:48→20:28)
[2021-02-12] MEDS: guaiFEN/Codeine SF 200/20/10ML 10 ML LIQUID PO ×2 (12:49→18:30)
--- NOTE | 2021-02-12 12:50 | PC.NURSE ---
CALL TO [facility] FOR REPORT
--- NOTE | 2021-02-12 14:17 | PC.NURSE ---
nurse to jessie given to andra (rn), pt aware of plan of care for admission to hosp.
--- NOTE | 2021-02-12 14:58 | P.CONPL_ITS ---
History of Present Illness History of Present Illness Consult date: 02/12/21 Requesting physician: Terri Haywood Chief complaint: PLEURAL EFFUSION Narrative: 40-year-old gentleman, lifetime nonsmoker, with recent history of COVID-19, hospitalized at [facility] from 01/21/2021 through 01/29/2021, admitted on 02/11/2021 from his [employer] office from his of for worsening dyspnea and has had chest imaging demonstrating a large loculated left-sided pleural effusion with air. Patient was noted to be hypoxemic requiring 2-3 L of supplemental oxygen to maintain normoxemia. He has been [facility]. Review of Systems Constitutional: Constitutional: Denies daytime sleepiness, Denies excessive sweating, Denies fatigue, Denies fever(s), Denies lethargy, Denies malaise, Denies night sweats, Denies snoring and Denies weight loss Eyes: Eyes: Denies blurry vision and Denies itchy eyes ENT: Denies nasal congestion, Denies post nasal drip, Denies sinus pain, Denies sinus pressure and Denies other ( Thrush) Cardiovascular: Cardiovascular: Denies chest pain, Denies pedal edema, Reports dyspnea, Denies orthopnea and Denies paroxysmal nocturnal dyspnea Respiratory: Respiratory: Reports cough, Denies hemoptysis, Denies excessive phlegm production, Reports dyspnea, Denies snoring and Denies wheezing Gastrointestinal: Gastrointestinal: Denies abdominal pain and Denies heartburn Musculoskeletal: Musculoskeletal: Denies myalgias, Denies arthralgias and Denies joint swelling Integumentary/Breasts: Skin/Breast: Denies rash Neurologic: Denies memory loss and Denies seizure-like activity Psychiatric: Psychiatric: Denies abnormal sleep pattern, Denies anxiety and Denies memory loss Endocrine: Endocrine: Denies excessive sweating, Denies fatigue and Denies heat intolerance Hematologic/Lymphatic: Hematologic/Lymphatic: Denies easy bruising Allergic/Immunologic: Allergic/Immunologic: Denies itchy eyes, Denies seasonal rhinorrhea and Denies wheezing PMFSH Past Medical History Medical History (Updated 02/12/21 @ 15:03 by Sage Valle MD) Cough Diabetes Nightmare No known health problems Pneumonia due to COVID-19 virus Social History Social History Household Members: Significant Other Housing: House Alcohol intake: never Smoking Status: Never smoker Use of substances other than those prescribed or required for medical reasons: Yes Substance Use Type: Marijuana Advance Directives: No service: Yes Current occupational status: employed Meds Allergies Allergy/AdvReac Type Severity Reaction Status Date / Time tree nut [TREE NUT] Allergy Severe ANAPHYLAXIS Verified 02/11/21 20:06 Active Medications: Current Medications Generic Name Dose Route Start Last Admin Trade Name Freq PRN Reason Stop Dose Admin Acetaminophen 650 mg 02/11/21 23:53 02/12/21 11:41 Acetaminophen 325 Mg Tablet PO 650 mg Q6H PRN Administration Pain, Mild (Pain Scale 1-3) Docusate Sodium 100 mg 02/11/21 23:53 Docusate Sodium 100 Mg Capsule PO DAILY PRN Constipation Guaifenesin/Codeine Phosphate 10 ml 02/12/21 12:00 02/12/21 12:49 Guaifen/Codeine Sf 200/20/10ml 10 Ml Liquid PO 10 ml Q6H NANCI Administration Hydrocodone Bit/Homatropine Methylb 5 ml 02/11/21 23:06 02/12/21 10:19 Hydrocodone/Homat 5/1.5/5 Ml 5 Ml Syrup PO 5 ml Q6H PRN Administration Cough Piperacillin Sod/Tazobactam 50 mls @ 100 mls/hr 02/12/21 07:00 02/12/21 13:38 Sod 3.375 gm/ Sodium Chloride IV Infused Q6H NANCI Infusion Vancomycin HCl 1,250 mg/ 250 mls @ 166.667 mls/hr 02/12/21 20:00 Sodium Chloride IV Q12H [facility] Insulin Glargine 24 unit 02/12/21 21:00 Insulin Glargine,Hum.Rec.Anlog 100 Unit/Ml 10 Ml Vial SUBCUT BEDTIME [facility] Insulin Human Lispro 0 unit 02/12/21 07:30 02/12/21 12:48 Insulin Lispro 100 Unit/Ml 3 Ml Vial SUBCUT 2 unit QIDACHS NANCI Administration Protocol Ondansetron HCl 4 mg 02/11/21 23:53 Ondansetron Hcl 4 Mg/2 Ml Vial IVPUSH Q8H PRN Nausea and Vomiting Oxycodone HCl 5 mg 02/12/21 06:08 02/12/21 07:42 Oxycodone Hcl Immed Release 5 Mg Tablet PO 5 mg Q4H PRN Administration Pain, Severe (Pain Scale 7-10) Pharmacy Consult 1 each 02/12/21 06:25 Consult Rx Vancomycin Dosing MISCELLANE DAILY PRN Consult order Sodium Chloride 3 ml 02/12/21 00:00 02/12/21 10:19 0.9 % Sodium Chloride Flush 3 Ml Syringe IVFLUSH 3 ml QSHIFT NANCI Administration Home Medications Medication Instructions Recorded Confirmed Last Taken Type insulin glargine [Lantus U-100 24 unit SUBCUT DAILY 02/11/21 02/11/21 02/11/21 History Insulin] insulin lispro [Humalog U-100 10 unit SUBCUT TIDAC 02/11/21 02/12/21 02/11/21 History Insulin] metformin 1 tab PO BID 02/11/21 02/11/21 02/11/21 History promethazine-codeine 5 ml PO Q4-6H PRN 02/11/21 02/11/21 02/11/21 History prednisone 5 mg PO BIDWM 02/12/21 02/12/21 Unknown History Physical Exam Vital Signs: Vital Signs: Last Vital Signs Temp 99.0 F 02/12/21 12:32 Pulse 104 H 02/12/21 13:32 Resp 21 H 02/12/21 13:32 BP 115/61 02/12/21 13:32 Pulse Ox 95 02/12/21 13:32 Body Mass Index 28.8 Const: General: no acute distress, alert and awake Eyes: Sclerae: sclerae normal EOM: EOMs intact bilaterally Neck: Neck: Yes no lymphadenopathy, Yes trachea midline and Yes supple Resp: Effort & Inspection: normal respiratory effort and no respiratory distress Auscultation: other (Left-sided poor air movement with some crackles, right-side normal ) Cardio: Rate: regular rate Rhythm: regular rhythm Heart sounds: no gallops, no murmurs and no rubs GI: Palpation (GI): Soft to palpation and Other GI palpation findings present ( Nontender) Auscultation: normal bowel sounds Extrem: General: Yes no pedal edema, No clubbing and No cyanosis Results Laboratory Findings CBC and BMP: 02/12/21 06:03 02/12/21 06:03 ABG, PT/INR, D-dimer: PT/INR, D-dimer PT 17.8 SEC (10.8-13.0) H 02/11/21 21:05 INR 1.5 (0.9-1.1) H 02/11/21 21:05 Abnormal lab findings: Abnormal Labs 02/11/21 02/11/21 02/11/21 21:05 21:05 21:05 RBC 3.98 L D Hgb 10.8 L D Hct 32.9 L D Band Neutrophils % Lymphocytes % (Manual) 18 L Monocytes % (Manual) 17 H Basophils % (Manual) ESR 104 H PT 17.8 H INR 1.5 H Sodium Potassium Chloride Carbon Dioxide BUN POC Glucose Random Glucose ALT Albumin 02/11/21 02/12/21 02/12/21 21:05 06:03 06:03 RBC 3.89 L Hgb 10.6 L Hct 32.2 L Band Neutrophils % 9 H Lymphocytes % (Manual) Monocytes % (Manual) Basophils % (Manual) 2 H ESR PT INR Sodium 134 L Potassium 3.2 L D 3.2 L Chloride 91 L 92 L Carbon Dioxide 30 H 31 H BUN 6 L POC Glucose Random Glucose 159 H D 147 H ALT 42 H Albumin 3.0 L 02/12/21 02/12/21 07:40 12:42 RBC Hgb Hct Band Neutrophils % Lymphocytes % (Manual) Monocytes % (Manual) Basophils % (Manual) ESR PT INR Sodium Potassium Chloride Carbon Dioxide BUN POC Glucose 123 H 157 H Random Glucose ALT Albumin Assessment and Plan (1) Loculated pleural effusion: Status: Acute Impression: 40-year-old gentleman with acute hypoxic respiratory failure secondary to large loculated pleural effusion with recent history of COVID-19. Likely inflammatory, though empyema is not ruled out. Recommendation: Empiric Augmentin until drainage. Thoracic evaluation for decortication. (2) Acute respiratory failure with hypoxia: Status: Acute
--- NOTE | 2021-02-12 15:06 | MHC.CM.PN ---
Patient was unavailable; CM spoke with S.O./HCP/[facility] @ [phone]. Patient lives in a house with his S.O. 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 Home /resume [facility] is the goal for dc and CM has initiated and will follow for dc planning. PCP is Dr. Isabel Howell with the [facility] in [place]
--- NOTE | 2021-02-12 15:20 | MHC.CM.PN ---
Patient will dc to home today at 4 PM, via [facility].
--- NOTE | 2021-02-12 15:27 | PM.DS ---
DS: Providers Provider Date of Service: 02/12/21 Date of admission: 02/11/21 23:06 Primary care physician: Unknown Physician Consults: 02/11/21 23:53 Consult to Pulmonology Routine Consulting Provider: Juan Ray Reason for consultation: Plural effusion 02/12/21 07:55 Consult to Thoracic Surgery Routine Consulting Provider: Renetta Dominguez Reason for consultation: large left-sided loculated pulmonary effusion for your eval DS: Diagnosis Discharge Diagnosis (1) Loculated pleural effusion: Status: Acute (2) Acute respiratory failure with hypoxia: Status: Acute (3) Sepsis: Status: Acute (4) Empyema: Status: Acute (5) Cough: Status: Acute DS: Medications Discharge Medications Home Medications: Home Medications Medication Instructions Recorded Confirmed Lantus U-100 Insulin 24 unit SUBCUT DAILY 02/11/21 02/11/21 insulin lispro [Humalog U-100 10 unit SUBCUT TIDAC 02/11/21 02/12/21 Insulin] metformin 1 tab PO BID 02/11/21 02/11/21 promethazine-codeine 5 ml PO Q4-6H PRN 02/11/21 02/11/21 prednisone 5 mg PO BIDWM 02/12/21 02/12/21 Previous Rx's Medication Instructions Recorded piperacillin-tazobactam 3.375 g IV Q6H 1 Days ea 02/12/21 vancomycin 1.25 g IV Q12H #1 ea 02/12/21 DS: Summary Hospital Course Hospital Course: Admission note HPI This is a 40-year-old male with history of diabetes who was recently discharged from the hospital after an extensive stay secondary to COVID-19 pneumonia returns to the hospital with complaints of significant cough as well as shortness of breath. Cough is productive of liquid phlegm, associated with significant abdominal wall and chest wall pain, he is also complaining of shortness of breath. He was seen by his gear lapping machine operator on day of presentation underwent a chest x-ray which showed a large left-sided loculated pulmonary effusion. And therefore his gear lapping machine operator asked him to come to the hospital. He denies any fever but has chills, no headache or change in vision, no chest pain, no diarrhea constipation, no nausea or vomiting, no urinary symptoms and no lower extremity edema. On arrival to the ED patient found to have a temp of 100.6?, pulse rate of 109, respiratory rate of 37, blood pressure 123/78, satting 96% on room air. Labs are significant for WBC count of 5.2, Hgb of 10.8, hematocrit 32.9, ESR of 104, PT of 17.8, INR of 1.5, sodium of 132, potassium of 3.2, chloride of 91, ALT 42 albumin of 3.[address] demonstrates improved COVID infiltrates but new large loculated left pleural collection with an air-fluid level suspicious for empyema Hospital course The patient was admitted to the hospital for finding of sepsis secondary to left-sided empyema confirmed by CT scan of the chest. He was started on broad-spectrum antibiotics of vancomycin and Zosyn. Consult to pulmonology was done who recommended thoracic surgery evaluation and possible decortication of the area. Thoracic surgery services not available in the hospital this week. Discussion with thoracic surgery service at [facility] about possible transfer for chest tube placement or decortication. Patient will be transferred and to continue vancomycin Zosyn meanwhile. Time Spent with Patient Time attestation: Total time spent providing and/or coordinating discharge services: Discharge coordination time: Greater than 30 minutes Physical Exam Vital Signs: Vital Signs: Last Vital Signs Temp 99.0 F 02/12/21 12:32 Pulse 104 H 02/12/21 13:32 Resp 21 H 02/12/21 13:32 BP 115/61 02/12/21 13:32 Pulse Ox 95 02/12/21 13:32 Body Mass Index 28.8 Const: Other: Constitutional : Alert, oriented, in mild respiratory distress, looks sick and tired Neck : Normal inspection, Supple Cardiovascular : RRR, S1 S2, no lower extremity edema Respiratory : air entry decreased mainly on the left lower lobe with tenderness on chest well palpation., left-sided basal crackles, wheezes or rhonchi Gastrointestinal: soft, lax, Normal bowel sounds, Non tender Skin : Warm/Dry, No rash Neurological : Alert & oriented x3, No focal deficit DS: Data Data Completed and Pending Labs on day of discharge: Laboratory Results - last 24 hr 02/11/21 02/11/21 02/11/21 21:05 21:05 21:05 WBC 5.2 RBC 3.98 L D Hgb 10.8 L D Hct 32.9 L D MCV 82.7 MCH 27.1 MCHC 32.8 RDW 13.0 Plt Count 268 D MPV 9.8 Immature Gran % (Auto) Cancelled Neut % (Auto) Cancelled Lymph % (Auto) Cancelled Bea[place]gard % (Auto) Cancelled Eos % (Auto) Cancelled Baso % (Auto) Cancelled Lymph # (Auto) Cancelled [place]gard # (Auto) Cancelled Eos # (Auto) Cancelled Baso # (Auto) Cancelled Abs Immat Gran (auto) Cancelled Absolute Neuts (auto) Cancelled Absolute Nucleated RBC 0.000 Nucleated RBC % (auto) 0.0 Neutrophils % (Manual) 61 Band Neutrophils % 3 Lymphocytes % (Manual) 18 L Atypical Lymphs % (Man) 1 Monocytes % (Manual) 17 H Eosinophils % (Manual) Basophils % (Manual) Abs Neuts (Manual) 3.3 Lymphocytes # (Manual) 0.9 Atyp Lymphs # (Manual) 0.1 Monocytes # (Manual) 0.9 Eosinophils # (Manual) Basophils # (Manual) Toxic Granulation PRESENT Toxic Vacuolation PRESENT Dohle Bodies PRESENT Platelet Estimate NORMAL Large Platelets PRESENT Giant Platelets PRESENT Plt Morphology Comment NOTED RBC Morphology NOTED Polychromasia 1+ (0-2) Microcytosis 1+ (5-14) Tear Drop Cells 1+ (0-2) ESR 104 H PT 17.8 H INR 1.5 H APTT 31.6 Sodium Potassium Chloride Carbon Dioxide Anion Gap BUN Creatinine Estim Creat Clear Calc Estimated GFR POC Glucose Random Glucose Lactic Acid Calcium Total Bilirubin Direct Bilirubin AST ALT Alkaline Phosphatase Total Protein Albumin COVID-19 (KEVAN) COVID-19 Clin Com 02/11/21 02/11/21 02/12/21 21:05 21:05 01:19 WBC RBC Hgb Hct MCV MCH MCHC RDW Plt Count MPV Immature Gran % (Auto) Neut % (Auto) Lymph % (Auto) Beauregard % (Auto) Eos % (Auto) Baso % (Auto) Lymph # (Auto) Bea[place]gard # (Auto) Eos # (Auto) Baso # (Auto) Abs Immat Gran (auto) Absolute Neuts (auto) Absolute Nucleated RBC Nucleated RBC % (auto) Neutrophils % (Manual) Band Neutrophils % Lymphocytes % (Manual) Atypical Lymphs % (Man) Monocytes % (Manual) Eosinophils % (Manual) Basophils % (Manual) Abs Neuts (Manual) Lymphocytes # (Manual) Atyp Lymphs # (Manual) Monocytes # (Manual) Eosinophils # (Manual) Basophils # (Manual) Toxic Granulation Toxic Vacuolation Dohle Bodies Platelet Estimate Large Platelets Giant Platelets Plt Morphology Comment RBC Morphology Polychromasia Microcytosis Tear Drop Cells ESR PT INR APTT Sodium 134 L Potassium 3.2 L D Chloride 91 L Carbon Dioxide 30 H Anion Gap 16 BUN 9 D Creatinine 0.61 Estim Creat Clear Calc 184.6 Estimated GFR > 60 POC Glucose Random Glucose 159 H D Lactic Acid 1.5 Calcium 8.4 Total Bilirubin 0.4 Direct Bilirubin 0.3 AST 23 ALT 42 H Alkaline Phosphatase 113 D Total Protein 6.6 Albumin 3.0 L COVID-19 (KEVAN) Negative COVID-19 Clin Com See Note 02/12/21 02/12/21 02/12/21 06:03 06:03 07:40 WBC 5.7 RBC 3.89 L Hgb 10.6 L Hct 32.2 L MCV 82.8 MCH 27.2 MCHC 32.9 RDW 13.2 Plt Count 266 MPV 10.3 Immature Gran % (Auto) Cancelled Neut % (Auto) Cancelled Lymph % (Auto) Cancelled Beauregard % (Auto) Cancelled Eos % (Auto) Cancelled Baso % (Auto) Cancelled Lymph # (Auto) Cancelled Bea[place]gard # (Auto) Cancelled Eos # (Auto) Cancelled Baso # (Auto) Cancelled Abs Immat Gran (auto) Cancelled Absolute Neuts (auto) Cancelled Absolute Nucleated RBC 0.000 Nucleated RBC % (auto) 0.0 Neutrophils % (Manual) 45 Band Neutrophils % 9 H Lymphocytes % (Manual) 29 Atypical Lymphs % (Man) 2 Monocytes % (Manual) 11 Eosinophils % (Manual) 2 Basophils % (Manual) 2 H Abs Neuts (Manual) 3.1 Lymphocytes # (Manual) 1.7 Atyp Lymphs # (Manual) 0.1 Monocytes # (Manual) 0.6 Eosinophils # (Manual) 0.1 Basophils # (Manual) 0.1 Toxic Granulation Toxic Vacuolation Dohle Bodies PRESENT Platelet Estimate NORMAL Large Platelets Giant Platelets Plt Morphology Comment NORMAL RBC Morphology NOTED Polychromasia 1+ (0-2) Microcytosis Tear Drop Cells 1+ (0-2) ESR PT INR APTT Sodium 136 Potassium 3.2 L Chloride 92 L Carbon Dioxide 31 H Anion Gap 16 BUN 6 L Creatinine 0.58 Estim Creat Clear Calc 194.1 Estimated GFR > 60 POC Glucose 123 H Random Glucose 147 H Lactic Acid Calcium 8.4 Total Bilirubin Direct Bilirubin AST ALT Alkaline Phosphatase Total Protein Albumin COVID-19 (KEVAN) COVID-19 Clin Com 02/12/21 12:42 WBC RBC Hgb Hct MCV MCH MCHC RDW Plt Count MPV Immature Gran % (Auto) Neut % (Auto) Lymph % (Auto) Beauregard % (Auto) Eos % (Auto) Baso % (Auto) Lymph # (Auto) Beauregard # (Auto) Eos # (Auto) Baso # (Auto) Abs Immat Gran (auto) Absolute Neuts (auto) Absolute Nucleated RBC Nucleated RBC % (auto) Neutrophils % (Manual) Band Neutrophils % Lymphocytes % (Manual) Atypical Lymphs % (Man) Monocytes % (Manual) Eosinophils % (Manual) Basophils % (Manual) Abs Neuts (Manual) Lymphocytes # (Manual) Atyp Lymphs # (Manual) Monocytes # (Manual) Eosinophils # (Manual) Basophils # (Manual) Toxic Granulation Toxic Vacuolation Dohle Bodies Platelet Estimate Large Platelets Giant Platelets Plt Morphology Comment RBC Morphology Polychromasia Microcytosis Tear Drop Cells ESR PT INR APTT Sodium Potassium Chloride Carbon Dioxide Anion Gap BUN Creatinine Estim Creat Clear Calc Estimated GFR POC Glucose 157 H Random Glucose Lactic Acid Calcium Total Bilirubin Direct Bilirubin AST ALT Alkaline Phosphatase Total Protein Albumin COVID-19 (KEVAN) COVID-19 Clin Com Impressions Chest CT 02/11/21 20:34 IMPRESSION: Improved Covid infiltrates but new large loculated left pleural collection with an air-fluid level suspicious for empyema. Nonemergent percutaneous sampling is recommended. Discharge Plan Discharge Patient Disposition: Xfer Acute Care Hospital Discharge Diagnosis: Hypoxic respiratory failure Empyema Referrals: Physician,Unknown [Primary Care Provider] - 1 Week Discharge Medications: New piperacillin-tazobactam 3.375 gram Recon Soln 3.375 g IV Q6H 1 Days RF: 0 vancomycin 1.25 gram recon soln 1.25 g IV Q12H Qty: 1 RF: 0 Continued Lantus U-100 Insulin 100 unit/mL solution 24 unit subcut DAILY RF: 0 promethazine-codeine 6.25-10 mg/5 mL Syrup 5 ml PO Q4-6H PRN (Reason: Cough) RF: 0 metformin 1,000 mg tablet 1 tab PO BID RF: 0 insulin lispro [Humalog U-100 Insulin] 100 unit/mL solution 10 unit subcut TIDAC RF: 0 prednisone 5 mg tablet 5 mg PO BIDWM RF: 0 Discharge Orders: Discharge Order (Routine); Ordered 02/12/21 Ordered By: Terri Haywood Activity on Discharge: As tolerated Stand Alone Forms: Patient Portal Discharge page Care Plan Goals: Read below Health Concerns: Read below Plan of Treatment: You were admitted to the hospital for evaluation of worsening shortness of breath and cough. Found to have left-sided fluid collection in on your lung suspicious for infection. You were started on IV antibiotics. Discussion with thoracic surgery was done with recommendation to transfer you over to [facility] for surgical intervention or tube placement to the lung. Assessment: To be transferred to [facility]
[2021-02-12 16:39] LABS: Glucose, Whole Blood 181 mg/dL (60-115)
[2021-02-12 20:09] LABS: Glucose, Whole Blood 204 mg/dL (60-115)
[2021-02-12] MEDS: Insulin Glargine,Hum.rec.anlog 100 UNIT/ML 10 ML VIAL 24 UNIT SUBCUT (20:28)
[2021-02-12] MEDS: vancomycin HCL 1,250 MG in 0.9 % Sodium Chloride 250 ML 166.67 MG IV (20:29)
== END 2021-02-12 21:30 | disposition short-term general hospital (02) | DRG 871 ==
LOC: HO.ED 20:19 → HO.EDOVER 02-12 00:02 → HO.IMC 02-12 12:47
PROVIDERS: Admitting Provider Internal Medicine; Emergency Provider Internal Medicine; PCP Surgery Surgical Oncology; Visit Provider Student in an Organized Health Care Education/Training Program
DX: A41.9 Sepsis, unspecified organism (principal); J86.9 Pyothorax without fistula; J90 Pleural effusion, not elsewhere classified; Z20.822 Contact with and (suspected) exposure to COVID-19; E11.9 Type 2 diabetes mellitus without complications; B94.8 Sequelae of other specified infectious and parasitic diseases; Z79.4 Long term (current) use of insulin; Z79.899 Other long term (current) drug therapy
CPT/HCPCS: 36415; 71250; 80048; 80076; 82947; 83605; 85007; 85025; 85027; 85610; 85652; 85730; 87040; 87635; 99285; J2270; J2405; J2543; J3370

== ENCOUNTER 2021-02-24 13:35 | Outpatient (REF) | payer OTHER, SELFPAY ==
[2021-02-24 13:40] LABS: MANUAL DIFF FLAG NO
[2021-02-24 13:44] LABS: Basophils Absolute Auto 0.1 X10*3/uL (0.0-0.2); Basophils Percent Auto 0.8 % (0-2); Eosinophils Absolute Auto 0.1 X10*3/uL (0.0-0.4); Eosinophils Percent Auto 1.5 % (0-4); Hematocrit 37.2 % (42-52); Hemoglobin 12.1 g/dl (14.0-18.0); Imm Gran Abs Auto 0.03 X10*3/uL (0.00-0.03); Imm Gran Pct Auto 0.4 % (0.0-0.4); Lymphocytes Absolute Auto 1.9 X10*3/uL (1.2-4.9); Lymphocytes Percent Auto 24.5 % (20-40); Mean Corpuscular HGB Conc 32.5 g/dl (31.0-36.0); Mean Corpuscular Hemoglobin 27.4 pg (27.0-33.0); Mean Corpuscular Volume 84.2 fL (80-98); Mean Platelet Volume 9.9 fL (9.4-12.4); Monocytes Absolute Auto 0.3 X10*3/uL (0.1-1.2); Monocytes Percent Auto 4.2 % (2-11); Neutrophils Absolute Auto 5.4 X10*3/uL (2.0-8.3); Neutrophils Percent Auto 68.6 % (45-73); Platelet Count 401 X10*3/uL (160-400); Red Blood Count 4.42 X10*6/uL (4.60-5.80); Red Cell Distribution Width 14.2 % (11.0-16.0); White Blood Count 7.9 X10*3/uL (4.8-10.8)
[2021-02-24 14:33] LABS: Alanine Aminotransferase 24 U/L (0-40); Albumin Level 3.6 g/dL (3.5-5.0); Alkaline Phosphatase 67 U/L (39-117); Anion Gap 14 (12-20); Aspartate Amino Transferase 16 U/L (5-37); Bilirubin Direct < 0.2 mg/dL (0.0-0.5); Bilirubin Total 0.4 mg/dL (0.0-1.0); Blood Urea Nitrogen 8 mg/dL (9-16); Calcium 9.4 mg/dL (8.4-10.2); Carbon Dioxide 28 mmol/L (22-29); Chloride 103 mmol/L (96-108); Estimated Glomerular Filt Rate > 60; Glucose Random 224 mg/dL (60-115); Potassium 4.2 mmol/L (3.3-5.1); Sodium 141 mmol/L (135-145); Total Protein 6.8 g/dL (6.5-8.0)
== END 2021-02-24 13:36 | disposition home or self-care (01) ==
LOC: HO.HVNA 13:35
PROVIDERS: Visit Provider Internal Medicine
DX: A04.8 Other specified bacterial intestinal infections (principal); J86.9 Pyothorax without fistula; J90 Pleural effusion, not elsewhere classified; B94.8 Sequelae of other specified infectious and parasitic diseases
CPT/HCPCS: 36415; 80048; 80076; 85025; 99212

== ENCOUNTER 2021-03-03 13:49 | Outpatient (REF) | payer OTHER, SELFPAY ==
[2021-03-03 13:53] LABS: MANUAL DIFF FLAG NO
[2021-03-03 13:57] LABS: Basophils Absolute Auto 0.1 X10*3/uL (0.0-0.2); Basophils Percent Auto 0.9 % (0-2); Eosinophils Absolute Auto 0.1 X10*3/uL (0.0-0.4); Eosinophils Percent Auto 1.3 % (0-4); Hematocrit 39.1 % (42-52); Hemoglobin 12.9 g/dl (14.0-18.0); Imm Gran Abs Auto 0.02 X10*3/uL (0.00-0.03); Imm Gran Pct Auto 0.4 % (0.0-0.4); Lymphocytes Absolute Auto 2.1 X10*3/uL (1.2-4.9); Lymphocytes Percent Auto 39.9 % (20-40); Mean Corpuscular Hemoglobin 27.6 pg (27.0-33.0); Mean Corpuscular Volume 83.7 fL (80-98); Mean Platelet Volume 10.3 fL (9.4-12.4); Monocytes Absolute Auto 0.3 X10*3/uL (0.1-1.2); Monocytes Percent Auto 6.3 % (2-11); Neutrophils Absolute Auto 2.7 X10*3/uL (2.0-8.3); Neutrophils Percent Auto 51.2 % (45-73); Platelet Count 263 X10*3/uL (160-400); Red Blood Count 4.67 X10*6/uL (4.60-5.80); Red Cell Distribution Width 14.6 % (11.0-16.0); White Blood Count 5.4 X10*3/uL (4.8-10.8)
[2021-03-03 15:46] LABS: Alanine Aminotransferase 24 U/L (0-40); Albumin Level 3.8 g/dL (3.5-5.0); Alkaline Phosphatase 66 U/L (39-117); Anion Gap 15 (12-20); Aspartate Amino Transferase 15 U/L (5-37); Bilirubin Direct 0.2 mg/dL (0.0-0.5); Bilirubin Total 0.5 mg/dL (0.0-1.0); Blood Urea Nitrogen 8 mg/dL (9-16); Carbon Dioxide 27 mmol/L (22-29); Chloride 100 mmol/L (96-108); Estimated Glomerular Filt Rate > 60; Glucose Random 394 mg/dL (60-115); Potassium 3.8 mmol/L (3.3-5.1); Sodium 138 mmol/L (135-145)
== END 2021-03-03 13:50 | disposition home or self-care (01) ==
LOC: HO.HVNA 13:49
PROVIDERS: Visit Provider Internal Medicine
DX: A40.8 Other streptococcal sepsis (principal)
CPT/HCPCS: 36415; 80051; 80076; 82565; 82947; 84520; 85025

== ENCOUNTER 2021-03-10 12:13 | Outpatient (REF) | payer OTHER, SELFPAY ==
[2021-03-10 12:16] LABS: MANUAL DIFF FLAG NO
[2021-03-10 12:18] LABS: Basophils Percent Auto 0.5 % (0-2); Eosinophils Absolute Auto 0.1 X10*3/uL (0.0-0.4); Eosinophils Percent Auto 2.3 % (0-4); Hemoglobin 13.1 g/dl (14.0-18.0); Imm Gran Abs Auto 0.03 X10*3/uL (0.00-0.03); Imm Gran Pct Auto 0.5 % (0.0-0.4); Lymphocytes Absolute Auto 2.1 X10*3/uL (1.2-4.9); Lymphocytes Percent Auto 34.6 % (20-40); Mean Corpuscular HGB Conc 33.6 g/dl (31.0-36.0); Mean Corpuscular Volume 83.3 fL (80-98); Mean Platelet Volume 10.1 fL (9.4-12.4); Monocytes Absolute Auto 0.5 X10*3/uL (0.1-1.2); Monocytes Percent Auto 7.5 % (2-11); Neutrophils Absolute Auto 3.3 X10*3/uL (2.0-8.3); Neutrophils Percent Auto 54.6 % (45-73); Platelet Count 215 X10*3/uL (160-400); Red Blood Count 4.68 X10*6/uL (4.60-5.80); White Blood Count 6.1 X10*3/uL (4.8-10.8)
[2021-03-10 12:53] LABS: Anion Gap 13 (12-20); Blood Urea Nitrogen 13 mg/dL (9-16); Carbon Dioxide 27 mmol/L (22-29); Chloride 102 mmol/L (96-108); Estimated Glomerular Filt Rate > 60; Glucose Random 311 mg/dL (60-115); Potassium 3.7 mmol/L (3.3-5.1); Sodium 138 mmol/L (135-145)
[2021-03-12 11:21] LABS: Alanine Aminotransferase 21 U/L (0-40); Alkaline Phosphatase 57 U/L (39-117); Aspartate Amino Transferase 14 U/L (5-37); Bilirubin Direct < 0.2 mg/dL (0.0-0.5); Bilirubin Total 0.4 mg/dL (0.0-1.0); Total Protein 6.8 g/dL (6.5-8.0)
== END 2021-03-10 12:14 | disposition home or self-care (01) ==
LOC: HO.HVNA 12:13
PROVIDERS: Visit Provider Internal Medicine
DX: A40.8 Other streptococcal sepsis (principal)
CPT/HCPCS: 36415; 80051; 80076; 82565; 82947; 84520; 85025

== ENCOUNTER → 2021-03-31 15:28 | Outpatient (BNVA) | payer OTHER, SELFPAY | PROVIDERS: PCP Nurse Practitioner Family; Visit Provider Internal Medicine | DX: B94.8 Sequelae of other specified infectious and parasitic diseases (principal); J86.9 Pyothorax without fistula | CPT/HCPCS: 99212 ==

== ENCOUNTER → 2021-04-02 10:29 | Outpatient (BNVA) | payer OTHER, SELFPAY | PROVIDERS: PCP Nurse Practitioner Family; Visit Provider Internal Medicine | DX: B94.8 Sequelae of other specified infectious and parasitic diseases (principal) | CPT/HCPCS: 94010; 99211 ==

== ENCOUNTER 2021-11-18 10:00 | Outpatient (REF) | payer OTHER, SELFPAY ==
--- NOTE | ~2021-11-18 | XR_ITS ---
EXAMINATION: XR CHEST CLINICAL INFORMATION: J90 - Pleural effusion, not elsewhere classified COMPARISON: Chest radiographs 02/11/2021, 01/21/2021, CT chest 02/11/2021 TECHNIQUE: 2 views of the chest were obtained. FINDINGS: The lungs are clear. There is no airspace consolidation, pleural reaction, or effusion. The costophrenic sulci are clear. The heart is normal in size. The hilar and mediastinal contours and visualized bony structures are unremarkable. XR/XR chest 2V IMPRESSION: Unremarkable examination.
== END 2021-11-18 10:01 | disposition home or self-care (01) ==
LOC: HO.XRAY 10:00
PROVIDERS: PCP Nurse Practitioner Family; Visit Provider Internal Medicine
DX: B94.8 Sequelae of other specified infectious and parasitic diseases (principal); G47.33 Obstructive sleep apnea (adult) (pediatric); J86.9 Pyothorax without fistula; J90 Pleural effusion, not elsewhere classified
CPT/HCPCS: 71046; 99212

== ENCOUNTER → 2022-05-09 10:45 | Outpatient (BNVA) | payer OTHER, SELFPAY | PROVIDERS: PCP Nurse Practitioner Family; Visit Provider Internal Medicine | DX: G47.33 Obstructive sleep apnea (adult) (pediatric) (principal); R06.00 Dyspnea, unspecified; U09.9 Post COVID-19 condition, unspecified; B94.8 Sequelae of other specified infectious and parasitic diseases; J86.9 Pyothorax without fistula | CPT/HCPCS: 99212 ==

== ENCOUNTER 2022-05-25 15:01 | Outpatient (REF) | payer OTHER, SELFPAY ==
--- NOTE | 2022-05-25 16:01 | PFT_ITS ---
Forced vital capacity 76%, FEV1 75%, FEV1/FVC ratio 80, [id number] 66%, and MVV 77%. Post bronchodilator therapy, there is significant improvement in [id number]. Total lung capacity 78% and residual volume 74%. Diffusion capacity 79%. CONCLUSION: 1. Mild restrictive pulmonary disorder. 2. Very mild small airway obstructive disorder with improvement after bronchodilator therapy. This indicates a mild bronchial asthma. Clinical correlation is recommended. MD PRAVEEN Perales/CARLL / [id number]
== END 2022-05-25 15:02 | disposition home or self-care (01) ==
LOC: HO.RESP 15:01
PROVIDERS: PCP Nurse Practitioner Family; Visit Provider Internal Medicine
DX: U07.1 COVID-19 (principal); R06.00 Dyspnea, unspecified; B94.8 Sequelae of other specified infectious and parasitic diseases
CPT/HCPCS: 94060; 94727; 94729

== ENCOUNTER 2022-09-02 17:34 | Inpatient (IN) | payer OTHER, SELFPAY ==
[2022-09-02] VITALS (7 sets, daily range): BP systolic 103–125; BP diastolic 58–76; PULSE 69–116; RESP 14–25; TEMP 36.8–36.9; O2SAT 92–99; BMI 32.1
--- NOTE | ~2022-09-02 | CT_ITS ---
EXAMINATION: CT HEAD WITHOUT CONTRAST CLINICAL INFORMATION: Altered mental status COMPARISON: None TECHNIQUE: Contiguous axial imaging was performed from the skull base to vertex without intravenous administration of contrast. This CT examination was performed using dose optimization techniques as appropriate, variously including the following: *Automated exposure control *Adjustment of mA and/or kV according to patient size (this includes techniques or standardized protocols for targeted exams where dose is matched to indication/reason for exam; i.e. extremities or head) *Use of iterative reconstruction technique DLP: 816 mGy-cm FINDINGS: There is no evidence of acute intracranial hemorrhage or territorial infarction. No abnormal mass effect or midline shift is seen. Cline to white matter differentiation is well preserved. No extra-axial fluid collections are identified. The ventricles are normal in size. No abnormal attenuation in the brain parenchyma. No acute calvarial fracture.. Paranasal sinuses and mastoid air cells are well-aerated. CT/CT head/brain wo IV con IMPRESSION: No CT evidence of acute intracranial hemorrhage or edematous territorial infarction..
--- NOTE | ~2022-09-02 | XR_ITS ---
EXAMINATION: XR CHEST CLINICAL INFORMATION: Patient not responsive COMPARISON: X-ray 11/18/2021 TECHNIQUE: Frontal view of the chest was obtained. FINDINGS: Patient is tilted to the right side. There is prominence of the cardiac and mediastinal silhouette, likely secondary to positioning. Low lung volumes. Hazy opacity in the left lung base retrocardiac region may be related to overlapping densities versus atelectasis/airspace disease. There is bronchovascular crowding in the right lower lung. No pleural effusion. No pulmonary edema or pneumothorax. XR/XR chest 1V IMPRESSION: Left basilar retrocardiac opacity could be related to overlapping densities versus atelectasis/airspace disease. Repeat radiographs, frontal and lateral projection could be obtained for further evaluation.
--- NOTE | ~2022-09-02 | CT_ITS ---
EXAMINATION: CT ANGIOGRAM OF THE CHEST WITH AND WITHOUT CONTRAST (CT PULMONARY ANGIOGRAM FOR PE) CLINICAL INFORMATION: Hypoxia, altered mental status, rule out PE COMPARISON: Chest x-ray earlier the same day. Chest CT 02/11/2021 TECHNIQUE: Prior to contrast administration, noncontrast localization images were obtained. Subsequently, multidetector volumetric imaging was performed from the thoracic inlet to below the diaphragms following the administration of 75 mL Omnipaque 350 intravenous contrast. No contrast reaction reported Sagittal, coronal, and MIP oblique sagittal reformatted images were obtained on the CT workstation, uploaded to PACS, and reviewed. This CT examination was performed using dose optimization techniques as appropriate, variously including the following: *Automated exposure control *Adjustment of mA and/or kV according to patient size (this includes techniques or standardized protocols for targeted exams where dose is matched to indication/reason for exam; i.e. extremities or head) *Use of iterative reconstruction technique Total exam dose-length product 536 mGy-cm FINDINGS: QUALITY OF STUDY/CONTRAST BOLUS: Fair. There is motion artifact and quantum mottle. The patient was scanned with his arms at his sides. The patient is not centered on the CT table. PULMONARY ARTERIES: No central pulmonary embolus seen. Limited evaluation of the segmental and subsegmental pulmonary arteries particularly to the lower lobes with no filling defects seen to suggest a pulmonary embolus. THORACIC AORTA: No aneurysm or dissection. LUNG: Bilateral lower lobe consolidation with air bronchograms, right greater than left. There is some peripheral lateral lingular consolidation with air bronchograms. PLEURA: No pleural effusion or pneumothorax. Previously seen large loculated left pleural effusion has resolved. MEDIASTINUM: No hilar or mediastinal lymphadenopathy. Normal heart size. No evidence of septal bowing or right heart strain. No coronary artery calcification. CHEST WALL/AXILLA: No axillary or internal mammary lymphadenopathy. OSSEOUS STRUCTURES: No acute or suspicious osseous abnormality. UPPER ABDOMEN: Severe diffuse hepatic steatosis. No reflux of contrast into the hepatic veins to suggest elevated right heart pressures. CT/CT angio chest PE protocol IMPRESSION: Limited study. No pulmonary embolus seen. Bibasilar consolidation which could represent atelectasis, aspiration, or pneumonia. VTE: negative
--- NOTE | 2022-09-02 17:35 | ED_ITS ---
HPI - General Adult General Chief complaint: Overdose Stated complaint: od on edibles Time Seen by Provider: 09/02/22 18:56 Source: patient and EMS Mode of arrival: EMS Limitations: altered mental status History of Present Illness HPI narrative: This is a 41-year-old male presenting to the emergency department with altered mental status, patient called 911 himself and told them that he needed help after eating edibles, when 1st responders arrived patient was not opening the door, they had to break into patient's house and plan medical house patient was not following commands was very combative, unable to answer questions. According to patient's sister who arrived on scene patient has no significant medical history. And states that he is a generally healthy individual. This is never happened with this patient before per family member in EMS. Upon arrival to the emergency department patient with eratic movements, not following commands or answering questions appropriately. To note, EMS did find patient covered in vomit. Related Data Home Medications Medication Instructions Recorded Confirmed hydromorphone 2 mg tablet 2 mg PO QID 02/24/21 05/09/22 ibuprofen 800 mg tablet 800 mg PO Q8H 03/31/21 05/09/22 trazodone 100 mg tablet 100 mg PO BEDTIME PRN 03/31/21 05/09/22 Allergies Allergy/AdvReac Type Severity Reaction Status Date / Time tree nut [TREE NUT] Allergy Severe ANAPHYLAXIS Verified 05/09/22 11:30 Review of Systems Review of Systems: Yes Unobtainable due to mental status PMFSH Past Medical History Attestation statement: The following information was validated with the patient. Source: old records reviewed and nursing notes reviewed Medical History Cough Diabetes Dyspnea due to COVID-19 Nightmare No known health problems ELIDA (obstructive sleep apnea) Pneumonia due to COVID-19 virus Post-COVID syndrome Social History Social History Household Members: Significant Other Housing: House Do you presently have visiting nurse or other home services: Yes (2-3 times a week and PT 3 times a week) Alcohol intake: never Substance Use Type: Marijuana Advance Directives: No Advance Directives Information Provided: No service: Yes Current occupational status: employed Physical Exam ED Vital Signs: Vital Signs - 24 hr 09/02/22 18:04 09/02/22 18:52 09/02/22 19:27 Temperature 98.4 F Pulse Rate 103 H 97 96 Respiratory Rate 14 18 21 H Blood Pressure 113/76 110/68 Pulse Oximetry 92 99 99 Oxygen Delivery Method Nasal Cannula Non-Rebreather Mask Non-Rebreather Mask Oxygen Flow Rate 15 14 09/02/22 20:36 09/02/22 20:37 Temperature Pulse Rate 82 84 Respiratory Rate 20 17 Blood Pressure 111/58 L Pulse Oximetry 98 98 Oxygen Delivery Method Oxymask Oxymask Oxygen Flow Rate 7 7 BMI result Body Mass Index 32.1 vss Appearance: Patient opens eyes to painful stimuli. Appears to be under the influence of drugs, erratic movements. Head: Normocephalic, atraumatic, no step-offs or deformities Eyes: Pupils equal, round and reactive to light.? CVS: Normal heart rate and rhythm.? Pulses normal.? Respiratory: No respiratory distress.? Breath sounds normal.? Abdomen: Soft and nontender.? Skin: Skin warm and dry.? Normal skin color.? Normal skin turgor.? Extremities:5/5 strength to bilateral upper and lower extremities Neuro: Patient unable to participate in neuro exam. Not following commands, not answering questions appropriately Course Reevaluation(s) Reevaluation #1: Patient desatting down to 80% on room air placed on 2 L and still 80 89%, place nasal airway into right naris without difficulty. Time: 18:23 Reevaluation #2: Patient hypoxic again an NPA was placed patient saturating 98% with non- rebreather. Time: 18:43 Reevaluation #3: Patient with leukocytosis, chemistry with no acute electrolyte abnormalities requiring intervention, patient's glucose elevated will hydrate with fluids, urine negative, coags within normal limits, salicylates, acetaminophen, ethanol negative, urine toxicology positive for marijuana. For no evidence of acute intracranial hemorrhage. Chest x-ray inconclusive CTA without pulmonary embolism, bibasilar consolidation representing atelectasis versus aspiration, there is concerns for aspiration as patient did vomit and was found covered in vomit upon EMS arrival. Also patient has been hypoxic here in the department. Will give unacyn. Time: 21:09 Additional Reevaluation(s): This time patient will be admitted for aspiration pneumonia hypoxia. Medications Administered Discontinued Medications Generic Name Dose Route Start Last Admin Trade Name Lorenzo PRN Reason Stop Dose Admin Sodium Chloride 1,000 mls @ 999 mls/hr 09/02/22 19:15 09/02/22 20:26 Ns IV 09/02/22 20:15 Infused .Q1H1M NANCI Infusion Ampicillin Sodium/Sulbactam 100 mls @ 200 mls/hr 09/02/22 21:09 09/02/22 21 :44 Sodium 3 gm/ Sodium Chloride IV 09/02/22 21:38 200 mls/hr ONCE ONE Administration Iohexol 100 ml 09/02/22 20:35 09/02/22 20:35 Iohexol 350 Mg/Ml 100 Ml Infus..Btl IV 09/02/22 20:36 75 ml ONCE ONE Administration Midazolam HCl 1 mg 09/02/22 18:00 09/02/22 18:41 Midazolam Hcl/Pf 2 Mg/2 Ml Vial IVPUSH 09/02/22 18:01 Not Given ONCE ONE Naloxone HCl 4 mg 09/02/22 17:38 09/02/22 18:34 Naloxone Hcl Nasal 4 Mg [place] NOSTRILALT 09/02/22 17:39 4 mg ONCE ONE Administration Ondansetron HCl 4 mg 09/02/22 17:43 09/02/22 18:34 Ondansetron Hcl 4 Mg/2 Ml Vial IVPUSH 09/02/22 17:44 4 mg ONCE ONE Administration Medical Decision Making [facility] Narrative Medical decision making narrative: 1809 41-year-old male presents with altered mental status via EMS, not cooperative, called 911 himself in told them that he had too many edibles, not responsive had to get pulled out of his house by EMS and Fire Department. Physical exam patient altered, opens eyes to painful stimuli, regular rate and rhythm, lungs clear abdomen soft nontender nondistended. Will obtain urine, urine toxicology, ethanol, salicylates, acetaminophen, basic labs, urine, head CT. Will rule out metabolic causes, and other causes such as intracranial hemorrhage that could attribute to altered mental status. Will also rule out aspiration pneumonia as patient was found covered in vomit. Medical Records Medical records reviewed: Yes I reviewed the patient's medical records. Lab Data Lab results reviewed: Yes I reviewed the patient's lab results. Result diagrams: 09/02/22 18:40 09/02/22 18:40 Labs: Lab Results 09/02/22 09/02/22 09/02/22 Range/Units 18:40 18:40 18:40 WBC 18.4 H (4.8-10.8) X10*3/uL RBC 5.36 (4.60-5.80) X10*6/uL Hgb 15.3 (14.0-18.0) g/dl Hct 44.4 (42.0-52.0) % MCV 82.8 (80.0-98.0) fL MCH 28.5 (27.0-33.0) pg MCHC 34.5 (31.0-36.0) g/dl RDW 12.3 (11.0-16.0) % Plt Count 227 (160-400) X10*3/uL MPV 10.1 (9.4-12.4) fL Immature Gran % (Auto) 0.9 H (0.0-0.4) % Neut % (Auto) 83.5 H (45-73) % Lymph % (Auto) 9.5 L (20-40) % Christian % (Auto) 5.5 (2-11) % Eos % (Auto) 0.2 (0-4) % Baso % (Auto) 0.4 (0-2) % Lymph # (Auto) 1.7 (1.2-4.9) X10*3/uL Christian # (Auto) 1.0 (0.1-1.2) X10*3/uL Eos # (Auto) 0.0 (0.0-0.4) X10*3/uL Baso # (Auto) 0.1 (0.0-0.2) X10*3/uL Abs Immat Gran (auto) 0.16 H (0.00-0.03) X10*3/uL Absolute Neuts (auto) 15.4 H (2.0-8.3) x10*3/uL Absolute Nucleated RBC 0.000 (0.0-0.012) X10*3/uL Nucleated RBC % (auto) 0.0 (0.0-0.2) /100WBC PT (10.0-13.1) SEC INR (0.9-1.1) Sodium (135-145) mmol/L Potassium (3.3-5.1) mmol/L Chloride (96-108) mmol/L Carbon Dioxide (22-29) mmol/L Anion Gap (12-20) BUN (9-16) mg/dL Creatinine (0.5-1.4) mg/dL Estim Creat Clear Calc Estimated GFR POC Glucose (60-115) mg/dL Random Glucose (60-115) mg/dL Calcium (8.4-10.2) mg/dL Magnesium (1.6-2.6) mg/dL Total Bilirubin (0.0-1.0) mg/dL AST (5-37) U/L ALT (0-40) U/L Alkaline Phosphatase (39-117) U/L Total Creatine Kinase (38-174) U/L Troponin I High Sens < 3.5 (<3.5-35.0) ng/L Total Protein (6.5-8.0) g/dL Albumin (3.5-5.0) g/dL Urine Color Urine Appearance Urine pH (5.0-9.0) Ur Specific Hoagland (1.005-1.025) Urine Protein (Neg-Trace) mg/dL Urine Glucose (UA) (Negative) mg/dL Urine Ketones (Negative) mg/dL Urine Blood (Negative) Urine Nitrite (Negative) Ur Leukocyte Esterase (Negative) Urine RBC (0-2) /HPF Urine WBC (0-5) /HPF Ur Squamous Epith Cells (0-2) /HPF Urine Bacteria (None Seen) Hyaline Casts (0-2) /LPF Salicylates (15-30) mg/dL Urine Opiates Screen (Not Detect) Urine Fentanyl Screen (Not Detect) Acetaminophen (<30) mcg/mL Ur Barbiturates Screen (Not Detect) Ur Phencyclidine Scrn (Not Detect) Ur Amphetamines Screen (Not Detect) U Benzodiazepines Scrn (Not Detect) Urine Cocaine Screen (Not Detect) U Marijuana (THC) Screen (Not Detect) Ethyl Alcohol mg/dL COVID-19 (KEVAN) Negative (Negative) COVID-19 Clin Com See Note 09/02/22 09/02/22 09/02/22 Range/Units 18:40 18:40 19:02 WBC (4.8-10.8) X10*3/uL RBC (4.60-5.80) X10*6/uL Hgb (14.0-18.0) g/dl Hct (42.0-52.0) % MCV (80.0-98.0) fL MCH (27.0-33.0) pg MCHC (31.0-36.0) g/dl RDW (11.0-16.0) % Plt Count (160-400) X10*3/uL MPV (9.4-12.4) fL Immature Gran % (Auto) (0.0-0.4) % Neut % (Auto) (45-73) % Lymph % (Auto) (20-40) % Christian % (Auto) (2-11) % Eos % (Auto) (0-4) % Baso % (Auto) (0-2) % Lymph # (Auto) (1.2-4.9) X10*3/uL Christian # (Auto) (0.1-1.2) X10*3/uL Eos # (Auto) (0.0-0.4) X10*3/uL Baso # (Auto) (0.0-0.2) X10*3/uL Abs Immat Gran (auto) (0.00-0.03) X10*3/uL Absolute Neuts (auto) (2.0-8.3) x10*3/uL Absolute Nucleated RBC (0.0-0.012) X10*3/uL Nucleated RBC % (auto) (0.0-0.2) /100WBC PT 11.7 (10.0-13.1) SEC INR 1.0 (0.9-1.1) Sodium 138 (135-145) mmol/L Potassium 3.9 (3.3-5.1) mmol/L Chloride 101 (96-108) mmol/L Carbon Dioxide 21 L (22-29) mmol/L Anion Gap 20 (12-20) BUN 14 (9-16) mg/dL Creatinine 1.00 (0.5-1.4) mg/dL Estim Creat Clear Calc 124.2 Estimated GFR > 60 POC Glucose 362 H* (60-115) mg/dL Random Glucose 395 H* (60-115) mg/dL Calcium 9.2 (8.4-10.2) mg/dL Magnesium 1.7 (1.6-2.6) mg/dL Total Bilirubin 0.5 (0.0-1.0) mg/dL AST 26 D (5-37) U/L ALT 41 H (0-40) U/L Alkaline Phosphatase 67 (39-117) U/L Total Creatine Kinase 79 (38-174) U/L Troponin I High Sens (<3.5-35.0) ng/L Total Protein 7.1 (6.5-8.0) g/dL Albumin 4.3 (3.5-5.0) g/dL Urine Color Urine Appearance Urine pH (5.0-9.0) Ur Specific Hoagland (1.005-1.025) Urine Protein (Neg-Trace) mg/dL Urine Glucose (UA) (Negative) mg/dL Urine Ketones (Negative) mg/dL Urine Blood (Negative) Urine Nitrite (Negative) Ur Leukocyte Esterase (Negative) Urine RBC (0-2) /HPF Urine WBC (0-5) /HPF Ur Squamous Epith Cells (0-2) /HPF Urine Bacteria (None Seen) Hyaline Casts (0-2) /LPF Salicylates < 5.0 L (15-30) mg/dL Urine Opiates Screen (Not Detect) Urine Fentanyl Screen (Not Detect) Acetaminophen < 1 (<30) mcg/mL Ur Barbiturates Screen (Not Detect) Ur Phencyclidine Scrn (Not Detect) Ur Amphetamines Screen (Not Detect) U Benzodiazepines Scrn (Not Detect) Urine Cocaine Screen (Not Detect) U Marijuana (THC) Screen (Not Detect) Ethyl Alcohol < 10 mg/dL COVID-19 (KEVAN) (Negative) COVID-19 Clin Com 09/02/22 09/02/22 Range/Units 19:23 19:23 WBC (4.8-10.8) X10*3/uL RBC (4.60-5.80) X10*6/uL Hgb (14.0-18.0) g/dl Hct (42.0-52.0) % MCV (80.0-98.0) fL MCH (27.0-33.0) pg MCHC (31.0-36.0) g/dl RDW (11.0-16.0) % Plt Count (160-400) X10*3/uL MPV (9.4-12.4) fL Immature Gran % (Auto) (0.0-0.4) % Neut % (Auto) (45-73) % Lymph % (Auto) (20-40) % Christian % (Auto) (2-11) % Eos % (Auto) (0-4) % Baso % (Auto) (0-2) % Lymph # (Auto) (1.2-4.9) X10*3/uL Christian # (Auto) (0.1-1.2) X10*3/uL Eos # (Auto) (0.0-0.4) X10*3/uL Baso # (Auto) (0.0-0.2) X10*3/uL Abs Immat Gran (auto) (0.00-0.03) X10*3/uL Absolute Neuts (auto) (2.0-8.3) x10*3/uL Absolute Nucleated RBC (0.0-0.012) X10*3/uL Nucleated RBC % (auto) (0.0-0.2) /100WBC PT (10.0-13.1) SEC INR (0.9-1.1) Sodium (135-145) mmol/L Potassium (3.3-5.1) mmol/L Chloride (96-108) mmol/L Carbon Dioxide (22-29) mmol/L Anion Gap (12-20) BUN (9-16) mg/dL Creatinine (0.5-1.4) mg/dL Estim Creat Clear Calc Estimated GFR POC Glucose (60-115) mg/dL Random Glucose (60-115) mg/dL Calcium (8.4-10.2) mg/dL Magnesium (1.6-2.6) mg/dL Total Bilirubin (0.0-1.0) mg/dL AST (5-37) U/L ALT (0-40) U/L Alkaline Phosphatase (39-117) U/L Total Creatine Kinase (38-174) U/L Troponin I High Sens (<3.5-35.0) ng/L Total Protein (6.5-8.0) g/dL Albumin (3.5-5.0) g/dL Urine Color Yellow Urine Appearance Clear Urine pH 5.0 (5.0-9.0) Ur Specific Hoagland >= 1.030 H (1.005-1.025) Urine Protein Trace (Neg-Trace) mg/dL Urine Glucose (UA) >=1000 H (Negative) mg/dL Urine Ketones 15 (Negative) mg/dL Urine Blood Negative (Negative) Urine Nitrite Negative (Negative) Ur Leukocyte Esterase Negative (Negative) Urine RBC 0-2 (0-2) /HPF Urine WBC 0-5 (0-5) /HPF Ur Squamous Epith Cells 0-2 (0-2) /HPF Urine Bacteria None Seen (None Seen) Hyaline Casts 0-2 (0-2) /LPF Salicylates (15-30) mg/dL Urine Opiates Screen Not Detected (Not Detect) Urine Fentanyl Screen Not Detected (Not Detect) Acetaminophen (<30) mcg/mL Ur Barbiturates Screen Not Detected (Not Detect) Ur Phencyclidine Scrn Not Detected (Not Detect) Ur Amphetamines Screen Not Detected (Not Detect) U Benzodiazepines Scrn Not Detected (Not Detect) Urine Cocaine Screen Not Detected (Not Detect) U Marijuana (THC) Screen POSITIVE H (Not Detect) Ethyl Alcohol mg/dL COVID-19 ([facility]AN) (Negative) COVID-19 Clin Com Critical Care Time Critical Care Time Critical Care Time: No Discharge Plan Discharge Clinical Impression: Altered mental status, Hypoxia, Aspiration pneumonia Patient Disposition: Admitted As Inpatient Prescriptions: No Action hydromorphone 2 mg tablet 2 mg PO QID ibuprofen 800 mg tablet 800 mg PO Q8H trazodone 100 mg tablet 100 mg PO BEDTIME PRN
[2022-09-02] MEDS: ondansetron HCL 4 MG/2 ML VIAL IVPUSH (18:34)
[2022-09-02] MEDS: Naloxone HCl Nasal 4 MG SPRAY NOSTRILALT (18:34)
--- NOTE | 2022-09-02 18:35 | PC.NURSE ---
Pt noted to be only satting 93% on nasal cannula. MELODIE Hurst aware, pt was placed on nonrebreather. And immediately was up to 99% saturation. Pt has no other symptoms, respirations are even and unlabored.
[2022-09-02 18:49] LABS: MANUAL DIFF FLAG NO
[2022-09-02 18:52] LABS: Basophils Absolute Auto 0.1 X10*3/uL (0.0-0.2); Basophils Percent Auto 0.4 % (0-2); Eosinophils Percent Auto 0.2 % (0-4); Hematocrit 44.4 % (42.0-52.0); Hemoglobin 15.3 g/dl (14.0-18.0); Imm Gran Abs Auto 0.16 X10*3/uL (0.00-0.03); Imm Gran Pct Auto 0.9 % (0.0-0.4); Lymphocytes Absolute Auto 1.7 X10*3/uL (1.2-4.9); Lymphocytes Percent Auto 9.5 % (20-40); Mean Corpuscular HGB Conc 34.5 g/dl (31.0-36.0); Mean Corpuscular Hemoglobin 28.5 pg (27.0-33.0); Mean Corpuscular Volume 82.8 fL (80.0-98.0); Mean Platelet Volume 10.1 fL (9.4-12.4); Monocytes Percent Auto 5.5 % (2-11); Neutrophils Absolute Auto 15.4 x10*3/uL (2.0-8.3); Neutrophils Percent Auto 83.5 % (45-73); Platelet Count 227 X10*3/uL (160-400); Red Blood Count 5.36 X10*6/uL (4.60-5.80); Red Cell Distribution Width 12.3 % (11.0-16.0); White Blood Count 18.4 X10*3/uL (4.8-10.8)
--- NOTE | 2022-09-02 19:04 | PC.NURSE ---
Pt arousable only to voice and tactile stimulation. PA requesting straight cath urine sample. This RN and Marco A, PCT straight cathed pt. Pt yelled and stated ow, that hurts . Once straight cath was complete pt became silent and less responsive again.
[2022-09-02 19:06] LABS: Glucose, Whole Blood 362 mg/dL (60-115)
[2022-09-02 19:09] LABS: COVID-19 Test Negative (Negative)
[2022-09-02 19:25] LABS: Acetaminophen LAB < 1 mcg/mL (<30); Alanine Aminotransferase 41 U/L (0-40); Albumin Level 4.3 g/dL (3.5-5.0); Alkaline Phosphatase 67 U/L (39-117); Anion Gap 20 (12-20); Aspartate Amino Transferase 26 U/L (5-37); Bilirubin Total 0.5 mg/dL (0.0-1.0); Blood Urea Nitrogen 14 mg/dL (9-16); Calcium 9.2 mg/dL (8.4-10.2); Carbon Dioxide 21 mmol/L (22-29); Chloride 101 mmol/L (96-108); Creatinine Clr Calc Pharmacy 124.2; Estimated Glomerular Filt Rate > 60; Glucose Random 395 mg/dL (60-115); Magnesium 1.7 mg/dL (1.6-2.6); Potassium 3.9 mmol/L (3.3-5.1); Salicylate < 5.0 mg/dL (15-30); Sodium 138 mmol/L (135-145); Total Protein 7.1 g/dL (6.5-8.0)
[2022-09-02 19:26] LABS: Troponin-I High Sensitivity < 3.5 ng/L (<3.5-35.0)
[2022-09-02] MEDS: 0.9 % Sodium Chloride 1,000 ML 999 ML IV (19:27)
[2022-09-02 19:33] LABS: Appearance Urine Clear; Color Urine Yellow; Glucose Urine UA >=1000 mg/dL (Negative); Leukocyte Esterase Urine Negative (Negative); Nitrite Urine Negative (Negative); Specific Gravity - Urine >= 1.030 (1.005-1.025); UMIC TRIGGER UACC YES; Urine Blood Negative (Negative); Urine Ketones 15 mg/dL (Negative); Urine Protein Trace mg/dL (Neg-Trace)
[2022-09-02 19:45] LABS: Prothrombin Time 11.7 SEC (10.0-13.1)
[2022-09-02 19:49] LABS: Ethanol < 10 mg/dL
[2022-09-02 19:51] LABS: Bacteria Urine None Seen (None Seen); Hyaline Casts Urine 0-2 /LPF (0-2); RBC Urine 0-2 /HPF (0-2); Squamous Epithelial Cell Urine 0-2 /HPF (0-2); WBC Urine 0-5 /HPF (0-5)
[2022-09-02] MEDS: iohexoL 350 MG/ML 100 ML INFUS..BTL IV (20:35)
--- NOTE | 2022-09-02 20:36 | PC.NURSE ---
Pt oxygen noted to be staying at 99-100% on non-rebreather. MELODIE Hurst requesting to wean pt down. This RN placed pt on oxymask at 7L. Pt continues to sat well at 98%
[2022-09-02 20:47] LABS: Amphetamine Screen Urine Not Detected (Not Detect); Barbiturates, Urine Not Detected (Not Detect); Benzodiazepines Screen Urine Not Detected (Not Detect); Cannabinoid Screen Urine POSITIVE (Not Detect); Cocaine Screen Urine Not Detected (Not Detect); Fentanyl, urine Not Detected (Not Detect); Opiate Screen Urine Not Detected (Not Detect); Phencyclidine Screen Urine Not Detected (Not Detect)
[2022-09-02] MEDS: Ampicillin Sodium/Sulbactam Na 3 GM in 0.9 % Sodium Chloride 100 ML IV (21:44)
--- NOTE | 2022-09-03 00:01 | P.HPHOSP_ITS ---
History of Present Illness Date of Service: 09/03/22 Chief Complaint: Altered mentation This is a 41-year-old male with a pertinent history of marijuana use disorder was brought to the emergency department for evaluation of decreased mentation. Patient is only responding to painful stimulus and not to verbal stimulus at the time of my evaluation. As per chart review, patient himself called 911 and told him he needed help after he ate some edibles. Patient was not answering the door when EMS arrived and they had to break into the patient's house. Patient was not following any commands and was unable to answer any questions. As per patient's sister on scene, patient is healthy individual and does not take any prescription medications. This has never happened to the patient before as per the sister. EMS also found the patient in his own vomit. In the emergency department, patient continued to be with decreased mentation . Patient was tachypneic and a consolidation was noted on imaging Review of Systems Review of Systems: Yes Unobtainable due to mental status PMFSH Medical History Cough Diabetes Dyspnea due to COVID-19 Nightmare No known health problems ELIDA (obstructive sleep apnea) Pneumonia due to COVID-19 virus Post-COVID syndrome Social History Household Members: Significant Other Housing: House Do you presently have visiting nurse or other home services: Yes (2-3 times a week and PT 3 times a week) Alcohol intake: never Substance Use Type: Marijuana Advance Directives: No Advance Directives Information Provided: No service: Yes Current occupational status: employed Meds Allergies Allergy/AdvReac Type Severity Reaction Status Date / Time tree nut [TREE NUT] Allergy Severe ANAPHYLAXIS Verified 05/09/22 11:30 Active Medications: Current Medications Ampicillin Sodium/Sulbactam (Sodium 3 gm/ Sodium Chloride) 100 mls @ 200 mls/hr IV Q6H [facility] Pharmacy Consult (Consult Rx Perform Med Rec) 1 each MISCELLANE ONCE PRN PRN Reason: Consult order Home Medications Medication Instructions Recorded Confirmed Last Taken Type hydromorphone 2 mg tablet 2 mg PO QID 02/24/21 05/09/22 Unknown History ibuprofen 800 mg tablet 800 mg PO Q8H 03/31/21 05/09/22 Unknown History trazodone 100 mg tablet 100 mg PO BEDTIME PRN 03/31/21 05/09/22 Unknown History Physical Exam Vital Signs and Narrative: Vital Signs: Last Vital Signs Temp 98.2 F 09/02/22 23:54 Pulse 71 09/02/22 23:54 Resp 25 H 09/02/22 23:54 BP 103/63 09/02/22 23:54 Pulse Ox 98 09/02/22 23:54 O2 Del Method 09/02/22 23:54 O2 Flow Rate 7 09/02/22 23:54 Oxygen Flow Rate 2 09/02/22 18:04 BMI result Body Mass Index 32.1 Middle-aged male lying in bed in no distress Neck supple, no JVD Regular rate and rhythm, S1-S2 heard Decreased breath sounds at bases with crackles heard, no wheezing appreciated Abdomen soft nontender, no guarding, no rigidity Patient is drowsy and not responding to verbal stimulus, only awakens to painful stimulus Psych: drowsy No pedal edema Results Labs CBC and Chem 7: 09/02/22 18:40 09/02/22 18:40 Labs: Laboratory Results - last 24 hr 09/02/22 09/02/22 09/02/22 18:40 18:40 18:40 MCV 82.8 MCH 28.5 MCHC 34.5 RDW 12.3 Plt Count 227 MPV 10.1 Immature Gran % (Auto) 0.9 H Neut % (Auto) 83.5 H Lymph % (Auto) 9.5 L [place] % (Auto) 5.5 Eos % (Auto) 0.2 Baso % (Auto) 0.4 Lymph # (Auto) 1.7 [place] # (Auto) 1.0 Eos # (Auto) 0.0 Baso # (Auto) 0.1 Abs Immat Gran (auto) 0.16 H Absolute Neuts (auto) 15.4 H Absolute Nucleated RBC 0.000 Nucleated RBC % (auto) 0.0 PT INR Anion Gap Estim Creat Clear Calc Estimated GFR POC Glucose Random Glucose Lactic Acid Calcium Magnesium Total Bilirubin AST ALT Alkaline Phosphatase Total Creatine Kinase Troponin I High Sens < 3.5 Total Protein Albumin Urine Color Urine Appearance Urine pH Ur Specific [place] Urine Protein Urine Glucose (UA) Urine Ketones Urine Blood Urine Nitrite Ur Leukocyte Esterase Urine RBC Urine WBC Ur Squamous Epith Cells Urine Bacteria Hyaline Casts Salicylates Urine Opiates Screen Urine Fentanyl Screen Acetaminophen Ur Barbiturates Screen Ur Phencyclidine Scrn Ur Amphetamines Screen U Benzodiazepines Scrn Urine Cocaine Screen U Marijuana (THC) Screen Ethyl Alcohol COVID-19 ([facility]) Negative COVID-19 Clin Com See Note 09/02/22 09/02/22 09/02/22 18:40 18:40 19:02 MCV MCH MCHC RDW Plt Count MPV Immature Gran % (Auto) Neut % (Auto) Lymph % (Auto) [place] % (Auto) Eos % (Auto) Baso % (Auto) Lymph # (Auto) [place] # (Auto) Eos # (Auto) Baso # (Auto) Abs Immat Gran (auto) Absolute Neuts (auto) Absolute Nucleated RBC Nucleated RBC % (auto) PT 11.7 INR 1.0 Anion Gap 20 Estim Creat Clear Calc 124.2 Estimated GFR > 60 POC Glucose 362 H* Random Glucose 395 H* Lactic Acid Calcium 9.2 Magnesium 1.7 Total Bilirubin 0.5 AST 26 D ALT 41 H Alkaline Phosphatase 67 Total Creatine Kinase 79 Troponin I High Sens Total Protein 7.1 Albumin 4.3 Urine Color Urine Appearance Urine pH Ur Specific [place] Urine Protein Urine Glucose (UA) Urine Ketones Urine Blood Urine Nitrite Ur Leukocyte Esterase Urine RBC Urine WBC Ur Squamous Epith Cells Urine Bacteria Hyaline Casts Salicylates < 5.0 L Urine Opiates Screen Urine Fentanyl Screen Acetaminophen < 1 Ur Barbiturates Screen Ur Phencyclidine Scrn Ur Amphetamines Screen U Benzodiazepines Scrn Urine Cocaine Screen U Marijuana (THC) Screen Ethyl Alcohol < 10 COVID-19 ([facility]AN) COVID-19 Clin Com 09/02/22 09/02/22 09/02/22 19:23 19:23 21:42 MCV MCH MCHC RDW Plt Count MPV Immature Gran % (Auto) Neut % (Auto) Lymph % (Auto) [place] % (Auto) Eos % (Auto) Baso % (Auto) Lymph # (Auto) [place] # (Auto) Eos # (Auto) Baso # (Auto) Abs Immat Gran (auto) Absolute Neuts (auto) Absolute Nucleated RBC Nucleated RBC % (auto) PT INR Anion Gap Estim Creat Clear Calc Estimated GFR POC Glucose Random Glucose Lactic Acid 1.0 Calcium Magnesium Total Bilirubin AST ALT Alkaline Phosphatase Total Creatine Kinase Troponin I High Sens Total Protein Albumin Urine Color Yellow Urine Appearance Clear Urine pH 5.0 Ur Specific [place] >= 1.030 H Urine Protein Trace Urine Glucose (UA) >=1000 H Urine Ketones 15 Urine Blood Negative Urine Nitrite Negative Ur Leukocyte Esterase Negative Urine RBC 0-2 Urine WBC 0-5 Ur Squamous Epith Cells 0-2 Urine Bacteria None Seen Hyaline Casts 0-2 Salicylates Urine Opiates Screen Not Detected Urine Fentanyl Screen Not Detected Acetaminophen Ur Barbiturates Screen Not Detected Ur Phencyclidine Scrn Not Detected Ur Amphetamines Screen Not Detected U Benzodiazepines Scrn Not Detected Urine Cocaine Screen Not Detected U Marijuana (THC) Screen POSITIVE H Ethyl Alcohol COVID-19 ([facility]AN) COVID-19 Clin Com Imaging Radiologist's Impressions: Impressions Head CT 09/02/22 18:14 IMPRESSION: No CT evidence of acute intracranial hemorrhage or edematous territorial infarction.. Chest X-Ray 09/02/22 18:25 IMPRESSION: Left basilar retrocardiac opacity could be related to overlapping densities versus atelectasis/airspace disease. Repeat radiographs, frontal and lateral projection could be obtained for further evaluation. Chest CTA 09/02/22 20:36 IMPRESSION: Limited study. No pulmonary embolus seen. Bibasilar consolidation which could represent atelectasis, aspiration, or pneumonia. VTE: negative Assessment and Plan (1) Altered mental status: Status: Acute (2) Aspiration pneumonia: Status: Acute (3) Hyperglycemia: Status: Acute Plan This is a 41-year-old male with a pertinent history of marijuana use disorder was brought to the emergency department for evaluation of decreased mentation. #. Acute toxic encephalopahty #. Substance use disorder - monitor for improvement in mentation with time. Hemodynamically stable at admission. UDS positive for marijuana. Care team and Addiction Team consulted. Monitor for withdrawals #. Acute respiratory distress due to: #. Aspiration pneumonia - initiating empiric IV Unasyn. Maintaining normal oxygen saturation on room air. #. Hypergylcemia with glycosuria - Unclear if patient has history of diabetes. Initiating Accu-Cheks with sliding scale insulin every 6 hours. Obtaining A1c. Med rec pending DVT prophylaxis: Lovenox 40 mg daily Full code NPO until mentation improves. Speech eval pending Admit as inpatient and will require two night minimum hospital stay for close observation of mentation and need for IV antibiotics. Quality Stroke Does the patient have a stroke diagnosis?: No VTE Prior VTE?: No VTE Risk Level:: Medical - low VTE Device Contraindication: Treatment Not Indicated VTE Drug Contraindication: N/A - Med Ordered
--- NOTE | 2022-09-03 00:10 | PC.NURSE ---
Pt arousable to name and tactile stimulation.
[2022-09-03 01:09] LABS: Glucose, Whole Blood 246 mg/dL (60-115)
[2022-09-03] MEDS: Insulin Lispro 100 UNIT/ML 3 ML VIAL SUBCUT ×3 (01:25→11:44)
[2022-09-03] MEDS: Insulin Glargine,Hum.rec.anlog 100 UNIT/ML 10 ML VIAL 15 UNIT SUBCUT (01:25)
[2022-09-03] MEDS: Enoxaparin Sodium 40 MG/0.4 ML SYRINGE SUBCUT (01:26)
[2022-09-03] MEDS: 0.9 % Sodium Chloride Flush 3 ML SYRINGE IVFLUSH ×2 (01:26→08:11)
[2022-09-03 02:00] VITALS: BP 119/68; PULSE 79; RESP 18; TEMP 36.7; O2SAT 100
--- NOTE | 2022-09-03 02:13 | PC.NURSE ---
Pt difficult to awaken, was able to wake up with painful , pt was able to communicate his name, address and location. Pt given hospital pants. Neuro intact at this time.
[2022-09-03 03:04] VITALS: PULSE 60; RESP 18; TEMP 37.2; O2SAT 98
[2022-09-03 03:37] LABS: Estimated Average Glucose 289 mg/dL; Hemoglobin A1c % 11.7 %
[2022-09-03 04:00] VITALS: BP 114/66; PULSE 68; RESP 18; TEMP 36.4; O2SAT 96
--- NOTE | 2022-09-03 04:01 | PC.NURSE ---
Took over care at 3:45am, Gabriel intact. Pt able to answer question appropriately. Plan is for the patient to be admitted to the floor awaiting room assignment.
[2022-09-03 05:05] VITALS: BMI 32.1
[2022-09-03 05:47] LABS: Glucose, Whole Blood 216 mg/dL (60-115)
[2022-09-03 05:54] LABS: MANUAL DIFF FLAG NO
[2022-09-03 06:00] LABS: Basophils Absolute Auto 0.1 X10*3/uL (0.0-0.2); Basophils Percent Auto 0.5 % (0-2); Eosinophils Percent Auto 0.2 % (0-4); Hematocrit 41.1 % (42.0-52.0); Hemoglobin 14.5 g/dl (14.0-18.0); Imm Gran Abs Auto 0.04 X10*3/uL (0.00-0.03); Imm Gran Pct Auto 0.4 % (0.0-0.4); Lymphocytes Absolute Auto 1.7 X10*3/uL (1.2-4.9); Lymphocytes Percent Auto 16.8 % (20-40); Mean Corpuscular HGB Conc 35.3 g/dl (31.0-36.0); Mean Corpuscular Hemoglobin 29.5 pg (27.0-33.0); Mean Corpuscular Volume 83.7 fL (80.0-98.0); Mean Platelet Volume 10.8 fL (9.4-12.4); Monocytes Absolute Auto 0.5 X10*3/uL (0.1-1.2); Neutrophils Absolute Auto 7.8 x10*3/uL (2.0-8.3); Neutrophils Percent Auto 77.1 % (45-73); Platelet Count 227 X10*3/uL (160-400); Red Blood Count 4.91 X10*6/uL (4.60-5.80); Red Cell Distribution Width 12.6 % (11.0-16.0); White Blood Count 10.1 X10*3/uL (4.8-10.8)
[2022-09-03 06:16] LABS: Anion Gap 15 (12-20); Blood Urea Nitrogen 13 mg/dL (9-16); Calcium 8.9 mg/dL (8.4-10.2); Carbon Dioxide 24 mmol/L (22-29); Chloride 106 mmol/L (96-108); Creatinine Clr Calc Pharmacy 161.3; Estimated Glomerular Filt Rate > 60; Glucose Random 211 mg/dL (60-115); Sodium 141 mmol/L (135-145)
[2022-09-03] MEDS: Ampicillin Sodium/Sulbactam Na 3 GM in 0.9 % Sodium Chloride 100 ML IV ×2 (06:18→11:44)
[2022-09-03 07:35] LABS: Glucose, Whole Blood 189 mg/dL (60-115)
[2022-09-03 07:47] VITALS: BP 110/65; PULSE 72; RESP 17; TEMP 36.7; O2SAT 95
--- NOTE | 2022-09-03 08:30 | PHA.MEDREC ---
Med rec complete, patient agrees that he is supposed to be on all these medications, but he is not regular about taking his meds. Unsure of when last time he took medsPharmacy Consult ? Medication Reconciliation Pharmacy has completed the medication reconciliation.
[2022-09-03 08:56] LABS: Estimated Average Glucose 286 mg/dL; Hemoglobin A1c % 11.6 %
--- NOTE | 2022-09-03 10:45 | PM.DS ---
DS: Providers Provider Date of Service: 09/03/22 Date of admission: 09/02/22 23:59 Primary care physician: Kelsey Physician Consults: 09/03/22 00:07 Addiction Medicine Routine Consulting Provider: Addiction Covering Reason for consultation: substance use Consult to Care Team Routine Comment: Reason for consultation: substance use DS: Diagnosis Discharge Diagnosis (1) Altered mental status: Status: Acute (2) Aspiration pneumonia: Status: Acute (3) Hyperglycemia: Status: Acute DS: Summary Hospital Course Hospital Course: this is a 41-year-old male with past medical history of diabetes, history of ELIDA, presented to the hospital after ingesting marijuana edibles and becoming altered and almost unconscious. Patient was found to be encephalopathic on arrival to the ED. his urine drug screen was positive for marijuana. His chest x-ray was concerning for aspiration. Patient was treated with IV fluids, IV antibiotics for the aspiration pneumonia with significant improvement in his mentation this morning. Patient is alert oriented. States that he took an old at a [employer], he was on aware of the edible being mixed with anything. He reports significant improvement in his symptoms, he is hungry and wants to eat. Patient tolerated p.o. intake, he is alert oriented x3, will switch his IV antibiotics to Augmentin for aspiration pneumonia. Patient advised to abstain from using any illicit drugs including marijuana, his at this time agreeable. Patient will be discharged home. Time Spent with Patient Time attestation: Total time spent providing and/or coordinating discharge services: Discharge coordination time: Greater than 30 minutes Quality: Safe Use of Opioids Does Pt have an Active Cancer Diagnosis on the Problem List?: No Quality: Stroke Does the patient have a stroke diagnosis?: No Physical Exam Vital Signs: Vital Signs: Last Vital Signs Temp 98.0 F 09/03/22 07:47 Pulse 72 09/03/22 07:47 Resp 17 09/03/22 07:47 BP 110/65 09/03/22 07:47 Pulse Ox 95 09/03/22 07:47 O2 Del Method 09/03/22 07:47 O2 Flow Rate 4 09/03/22 03:04 Oxygen Flow Rate 2 09/02/22 18:04 BMI result Body Mass Index 32.1 Const: Other: Patient alert oriented x3, no acute distress Resp: Other: lungs clear to auscultation GI: Other: abdomen is soft nontender Neuro: Other: alert oriented x3, no neurological deficits DS: Data Data Completed and Pending Completed studies during hospitalization [Text1]: Procedures Introduction of Remdesivir Anti-infective into Peripheral Vein, Percutaneous Approach, [employer] 5 (01/21/21) Labs on day of discharge: Laboratory Results - last 24 hr 09/02/22 09/02/22 09/02/22 18:40 18:40 18:40 WBC 18.4 H RBC 5.36 Hgb 15.3 Hct 44.4 MCV 82.8 MCH 28.5 MCHC 34.5 RDW 12.3 Plt Count 227 MPV 10.1 Immature Gran % (Auto) 0.9 H Neut % (Auto) 83.5 H Lymph % (Auto) 9.5 L [place] % (Auto) 5.5 Eos % (Auto) 0.2 Baso % (Auto) 0.4 Lymph # (Auto) 1.7 [place] # (Auto) 1.0 Eos # (Auto) 0.0 Baso # (Auto) 0.1 Abs Immat Gran (auto) 0.16 H Absolute Neuts (auto) 15.4 H Absolute Nucleated RBC 0.000 Nucleated RBC % (auto) 0.0 PT INR Sodium Potassium Chloride Carbon Dioxide Anion Gap BUN Creatinine Estim Creat Clear Calc Estimated GFR POC Glucose Random Glucose Estimat Average Glucose Hemoglobin A1c % Lactic Acid Calcium Magnesium Total Bilirubin AST ALT Alkaline Phosphatase Total Creatine Kinase Troponin I High Sens < 3.5 Total Protein Albumin Urine Color Urine Appearance Urine pH Ur Specific [place] Urine Protein Urine Glucose (UA) Urine Ketones Urine Blood Urine Nitrite Ur Leukocyte Esterase Urine RBC Urine WBC Ur Squamous Epith Cells Urine Bacteria Hyaline Casts Salicylates Urine Opiates Screen Urine Fentanyl Screen Acetaminophen Ur Barbiturates Screen Ur Phencyclidine Scrn Ur Amphetamines Screen U Benzodiazepines Scrn Urine Cocaine Screen U Marijuana (THC) Screen Ethyl Alcohol COVID-19 ([facility]) Negative COVID-19 Clin Com See Note 09/02/22 09/02/22 09/02/22 18:40 18:40 19:02 WBC RBC Hgb Hct MCV MCH MCHC RDW Plt Count MPV Immature Gran % (Auto) Neut % (Auto) Lymph % (Auto) [place] % (Auto) Eos % (Auto) Baso % (Auto) Lymph # (Auto) [place] # (Auto) Eos # (Auto) Baso # (Auto) Abs Immat Gran (auto) Absolute Neuts (auto) Absolute Nucleated RBC Nucleated RBC % (auto) PT 11.7 INR 1.0 Sodium 138 Potassium 3.9 Chloride 101 Carbon Dioxide 21 L Anion Gap 20 BUN 14 Creatinine 1.00 Estim Creat Clear Calc 124.2 Estimated GFR > 60 POC Glucose 362 H* Random Glucose 395 H* Estimat Average Glucose Hemoglobin A1c % Lactic Acid Calcium 9.2 Magnesium 1.7 Total Bilirubin 0.5 AST 26 D ALT 41 H Alkaline Phosphatase 67 Total Creatine Kinase 79 Troponin I High Sens Total Protein 7.1 Albumin 4.3 Urine Color Urine Appearance Urine pH Ur Specific [place] Urine Protein Urine Glucose (UA) Urine Ketones Urine Blood Urine Nitrite Ur Leukocyte Esterase Urine RBC Urine WBC Ur Squamous Epith Cells Urine Bacteria Hyaline Casts Salicylates < 5.0 L Urine Opiates Screen Urine Fentanyl Screen Acetaminophen < 1 Ur Barbiturates Screen Ur Phencyclidine Scrn Ur Amphetamines Screen U Benzodiazepines Scrn Urine Cocaine Screen U Marijuana (THC) Screen Ethyl Alcohol < 10 COVID-19 ([facility]AN) COVID-19 Clin Com 09/02/22 09/02/22 09/02/22 19:23 19:23 21:42 WBC RBC Hgb Hct MCV MCH MCHC RDW Plt Count MPV Immature Gran % (Auto) Neut % (Auto) Lymph % (Auto) [place] % (Auto) Eos % (Auto) Baso % (Auto) Lymph # (Auto) [place] # (Auto) Eos # (Auto) Baso # (Auto) Abs Immat Gran (auto) Absolute Neuts (auto) Absolute Nucleated RBC Nucleated RBC % (auto) PT INR Sodium Potassium Chloride Carbon Dioxide Anion Gap BUN Creatinine Estim Creat Clear Calc Estimated GFR POC Glucose Random Glucose Estimat Average Glucose Hemoglobin A1c % Lactic Acid 1.0 Calcium Magnesium Total Bilirubin AST ALT Alkaline Phosphatase Total Creatine Kinase Troponin I High Sens Total Protein Albumin Urine Color Yellow Urine Appearance Clear Urine pH 5.0 Ur Specific [place] >= 1.030 H Urine Protein Trace Urine Glucose (UA) >=1000 H Urine Ketones 15 Urine Blood Negative Urine Nitrite Negative Ur Leukocyte Esterase Negative Urine RBC 0-2 Urine WBC 0-5 Ur Squamous Epith Cells 0-2 Urine Bacteria None Seen Hyaline Casts 0-2 Salicylates Urine Opiates Screen Not Detected Urine Fentanyl Screen Not Detected Acetaminophen Ur Barbiturates Screen Not Detected Ur Phencyclidine Scrn Not Detected Ur Amphetamines Screen Not Detected U Benzodiazepines Scrn Not Detected Urine Cocaine Screen Not Detected U Marijuana (THC) Screen POSITIVE H Ethyl Alcohol COVID-19 ([facility]AN) COVID-19 [employer] Com 09/03/22 09/03/22 09/03/22 00:50 01:05 05:06 WBC 10.1 RBC 4.91 Hgb 14.5 Hct 41.1 L MCV 83.7 MCH 29.5 MCHC 35.3 RDW 12.6 Plt Count 227 MPV 10.8 Immature Gran % (Auto) 0.4 Neut % (Auto) 77.1 H Lymph % (Auto) 16.8 L [place] % (Auto) 5.0 Eos % (Auto) 0.2 Baso % (Auto) 0.5 Lymph # (Auto) 1.7 [place] # (Auto) 0.5 Eos # (Auto) 0.0 Baso # (Auto) 0.1 Abs Immat Gran (auto) 0.04 H Absolute Neuts (auto) 7.8 Absolute Nucleated RBC 0.000 Nucleated RBC % (auto) 0.0 PT INR Sodium Potassium Chloride Carbon Dioxide Anion Gap BUN Creatinine Estim Creat Clear Calc Estimated GFR POC Glucose 246 H Random Glucose Estimat Average Glucose 289 Hemoglobin A1c % 11.7 Lactic Acid Calcium Magnesium Total Bilirubin AST ALT Alkaline Phosphatase Total Creatine Kinase Troponin I High Sens Total Protein Albumin Urine Color Urine Appearance Urine pH Ur Specific [place] Urine Protein Urine Glucose (UA) Urine Ketones Urine Blood Urine Nitrite Ur Leukocyte Esterase Urine RBC Urine WBC Ur Squamous Epith Cells Urine Bacteria Hyaline Casts Salicylates Urine Opiates Screen Urine Fentanyl Screen Acetaminophen Ur Barbiturates Screen Ur Phencyclidine Scrn Ur Amphetamines Screen U Benzodiazepines Scrn Urine Cocaine Screen U Marijuana (THC) Screen Ethyl Alcohol COVID-19 ([facility]) COVID-19 Clin Com 09/03/22 09/03/22 09/03/22 05:06 05:06 05:43 WBC RBC Hgb Hct MCV MCH MCHC RDW Plt Count MPV Immature Gran % (Auto) Neut % (Auto) Lymph % (Auto) [place] % (Auto) Eos % (Auto) Baso % (Auto) Lymph # (Auto) [place] # (Auto) Eos # (Auto) Baso # (Auto) Abs Immat Gran (auto) Absolute Neuts (auto) Absolute Nucleated RBC Nucleated RBC % (auto) PT INR Sodium 141 Potassium 4.0 Chloride 106 Carbon Dioxide 24 Anion Gap 15 BUN 13 Creatinine 0.77 Estim Creat Clear Calc 161.3 Estimated GFR > 60 POC Glucose 216 H Random Glucose 211 H Estimat Average Glucose 286 Hemoglobin A1c % 11.6 Lactic Acid Calcium 8.9 Magnesium Total Bilirubin AST ALT Alkaline Phosphatase Total Creatine Kinase Troponin I High Sens Total Protein Albumin Urine Color Urine Appearance Urine pH Ur Specific [place] Urine Protein Urine Glucose (UA) Urine Ketones Urine Blood Urine Nitrite Ur Leukocyte Esterase Urine RBC Urine WBC Ur Squamous Epith Cells Urine Bacteria Hyaline Casts Salicylates Urine Opiates Screen Urine Fentanyl Screen Acetaminophen Ur Barbiturates Screen Ur Phencyclidine Scrn Ur Amphetamines Screen U Benzodiazepines Scrn Urine Cocaine Screen U Marijuana (THC) Screen Ethyl Alcohol COVID-19 ([facility]AN) COVID-19 [employer] 09/03/22 07:31 WBC RBC Hgb Hct MCV MCH MCHC RDW Plt Count MPV Immature Gran % (Auto) Neut % (Auto) Lymph % (Auto) [place] % (Auto) Eos % (Auto) Baso % (Auto) Lymph # (Auto) [place] # (Auto) Eos # (Auto) Baso # (Auto) Abs Immat Gran (auto) Absolute Neuts (auto) Absolute Nucleated RBC Nucleated RBC % (auto) PT INR Sodium Potassium Chloride Carbon Dioxide Anion Gap BUN Creatinine Estim Creat Clear Calc Estimated GFR POC Glucose 189 H Random Glucose Estimat Average Glucose Hemoglobin A1c % Lactic Acid Calcium Magnesium Total Bilirubin AST ALT Alkaline Phosphatase Total Creatine Kinase Troponin I High Sens Total Protein Albumin Urine Color Urine Appearance Urine pH Ur Specific [place] Urine Protein Urine Glucose (UA) Urine Ketones Urine Blood Urine Nitrite Ur Leukocyte Esterase Urine RBC Urine WBC Ur Squamous Epith Cells Urine Bacteria Hyaline Casts Salicylates Urine Opiates Screen Urine Fentanyl Screen Acetaminophen Ur Barbiturates Screen Ur Phencyclidine Scrn Ur Amphetamines Screen U Benzodiazepines Scrn Urine Cocaine Screen U Marijuana (THC) Screen Ethyl Alcohol COVID-19 ([facility]AN) COVID-19 [employer] Com Discharge Plan Discharge Anticipated Discharge Date/Time: 09/03/22 13:38 Patient Disposition: Home, Self-Care Discharge Diagnosis: toxic metabolic encephalopathy, Aspiration Pneumonia Referrals: Physician,Unknown J [Primary Care Provider] - 1 Week Discharge Medications: New amoxicillin-pot clavulanate 875-125 mg tablet 1 tab PO Q12H 7 Days Qty: 14 0RF Continued albuterol sulfate 90 mcg/actuation Hfa Aerosol Inhaler 2 puff INHALATION Q4H PRN (Reason: COUGH/SHORTNESS OF BREATH) carboxymethylcellulose sodium 0.5 % Drops 1 drp OPHTHALMIC (EYE) QID PRN (Reason: Dry Eye(S)) diclofenac sodium 1 % Gel 2 g TOPICAL QID Protocol: Apply to: Apply to: KNEE PAIN fluticasone propion-salmeterol [Advair Diskus] 250-50 mcg/dose Blister With Device 1 inh INHALATION BID insulin glargine [Lantus U-100 Insulin] 100 unit/mL Solution 12 unit SUBCUT BEDTIME Lactobacillus acidophilus Tablet,Chewable 1 tab PO DAILY lorazepam 0.5 mg Tablet 0.5 mg PO DAILY PRN (Reason: Anxiety) metformin 500 mg Tablet Extended Release 24 Hr 2,000 mg PO DAILY modafinil 100 mg Tablet 100 mg DAILY PRN (Reason: PREVENT FALLING ASLEEP) Rx Instructions: PATIENT CAN TAKE 1 TO 2 TABS sertraline 100 mg Tablet 100 mg PO DAILY ibuprofen 800 mg tablet 800 mg PO Q8H PRN (Reason: Pain (Scale Score 7-10)) trazodone 100 mg tablet 100 mg PO BEDTIME PRN (Reason: Sleep) Discharge Orders: Discharge Order (Routine); Ordered 09/03/22 Ordered By: Araseli Henderson Diet: Advance to usual diet Activity on Discharge: As tolerated Stand Alone Forms: Patient Portal Discharge page Care Plan Goals: Avoid any edibles, or illicit drugs continue antibiotics for aspiration for next 7 days Health Concerns: overdose drug use Plan of Treatment: continue antibiotics as prescribed above illicit drugs Assessment: as above
[2022-09-03 11:33] LABS: Glucose, Whole Blood 277 mg/dL (60-115)
[2022-09-03 12:00] VITALS: BP 102/57; PULSE 92; RESP 18; TEMP 36.9; O2SAT 96
== END 2022-09-03 14:52 | disposition home or self-care (01) | DRG 917 ==
LOC: HO.ED 22:12 → HO.EDOVER 09-03 00:04 → HO.S3 09-03 03:42
PROVIDERS: Physician Assistant; Admitting Provider Student in an Organized Health Care Education/Training Program; Emergency Provider Student in an Organized Health Care Education/Training Program; PCP Nurse Practitioner Family; Visit Provider Internal Medicine
DX: T40.711A Poisoning by cannabis, accidental (unintentional), initial encounter (principal); G92.8 Other toxic encephalopathy; J69.0 Pneumonitis due to inhalation of food and vomit; E11.65 Type 2 diabetes mellitus with hyperglycemia; G47.33 Obstructive sleep apnea (adult) (pediatric); Z20.822 Contact with and (suspected) exposure to COVID-19; Z79.4 Long term (current) use of insulin; Z79.51 Long term (current) use of inhaled steroids; Z79.84 Long term (current) use of oral hypoglycemic drugs; Z79.899 Other long term (current) drug therapy
CPT/HCPCS: 36415; 70450; 71045; 71275; 80048; 80053; 80143; 80179; 80307; 81001; 82077; 82550; 82947; 83036; 83605; 83735; 84484; 85025; 85610; 87040; 87635; 99285; J0295; J1650; J2405; Q9967

== ENCOUNTER 2023-12-28 10:54 | Emergency (ER) | payer OTHER, SELFPAY ==
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
[2023-12-28 11:07] VITALS: BP 128/82; PULSE 92; RESP 16; TEMP 36.7; O2SAT 95; BMI 33.7
[2023-12-28 12:39] VITALS: BP 116/76; PULSE 83; RESP 18; TEMP 36.6; O2SAT 94
--- NOTE | 2023-12-28 13:00 | PC.NURSE ---
C-COLLAR PLACE ON PT BY MLP (IVETH)
[2023-12-28 13:09] LABS: Basophils Absolute Auto 0.1 X10*3/uL (0.0-0.2); Eosinophils Absolute Auto 0.1 X10*3/uL (0.0-0.4); Eosinophils Percent Auto 1.7 % (0-4); Hemoglobin 14.9 g/dl (14.0-18.0); Imm Gran Abs Auto 0.01 X10*3/uL (0.00-0.03); Imm Gran Pct Auto 0.2 % (0.0-0.4); Lymphocytes Percent Auto 38.7 % (20-40); MANUAL DIFF FLAG NO; Mean Corpuscular HGB Conc 35.5 g/dl (31.0-36.0); Mean Corpuscular Hemoglobin 28.7 pg (27.0-33.0); Mean Corpuscular Volume 80.9 fL (80.0-98.0); Mean Platelet Volume 10.2 fL (9.4-12.4); Monocytes Absolute Auto 0.4 X10*3/uL (0.1-1.2); Monocytes Percent Auto 6.9 % (2-11); Neutrophils Absolute Auto 2.7 x10*3/uL (2.0-8.3); Neutrophils Percent Auto 51.5 % (45-73); Platelet Count 188 X10*3/uL (160-400); Red Blood Count 5.19 X10*6/uL (4.60-5.80); Red Cell Distribution Width 12.5 % (11.0-16.0); White Blood Count 5.2 X10*3/uL (4.8-10.8)
[2023-12-28 13:26] LABS: Alanine Aminotransferase 41 U/L (0-40); Albumin Level 3.9 g/dL (3.5-5.0); Alkaline Phosphatase 62 U/L (39-117); Anion Gap 12 (12-20); Aspartate Amino Transferase 24 U/L (5-37); Bilirubin Total 0.4 mg/dL (0.0-1.0); Blood Urea Nitrogen 11 mg/dL (9-16); Carbon Dioxide 25 mmol/L (22-29); Chloride 103 mmol/L (96-108); Creatinine Clr Calc Pharmacy 160.9; Estimated Glomerular Filt Rate > 60; Glucose Random 344 mg/dL (60-115); Potassium 3.7 mmol/L (3.3-5.1); Sodium 136 mmol/L (135-145); Total Protein 6.6 g/dL (6.5-8.0)
[2023-12-28] MEDS: LORazepam 2 MG/ML VIAL 1 MG IVPUSH (13:32)
[2023-12-28] MEDS: HYDROmorphone HCl 1 MG/ML SYRINGE IVPUSH (13:52)
[2023-12-28] MEDS: iohexoL 350 MG/ML 100 ML INFUS..BTL IV (14:05)
[2023-12-28 14:13] VITALS: BP 125/72; PULSE 87; RESP 16; TEMP 37.2; O2SAT 96
--- NOTE | 2023-12-28 14:20 | PC.NURSE ---
C-COLLAR D/C'D BY MLP (IDA)
== END 2023-12-28 16:14 | disposition home or self-care (01) ==
PROVIDERS: Physician Assistant Medical; Emergency Provider Emergency Medicine
DX: S13.4XXA Sprain of ligaments of cervical spine, initial encounter (principal); V43.52XA Car driver injured in collision with other type car in traffic accident, initial encounter; R10.31 Right lower quadrant pain; R10.12 Left upper quadrant pain; Y93.89 Activity, other specified; Y92.411 Interstate highway as the place of occurrence of the external cause; Y99.9 Unspecified external cause status
CPT/HCPCS: 36415; 70450; 71260; 72100; 72125; 74177; 80053; 85025; 96374; 96375; 99284; J1170; J2060; Q9967

== ENCOUNTER 2024-02-06 15:39 | Outpatient (AMB) | payer OTHER, SELFPAY ==
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
[2024-02-06 15:49] VITALS: BP 130/74; PULSE 83; O2SAT 96; BMI 33.5
== END 2024-02-06 16:14 | disposition home or self-care (01) ==
PROVIDERS: PCP Internal Medicine; Referring Provider Internal Medicine; Visit Provider Internal Medicine
DX: R91.8 Other nonspecific abnormal finding of lung field (principal); G47.33 Obstructive sleep apnea (adult) (pediatric)
CPT/HCPCS: 99213

== ENCOUNTER → 2024-02-06 15:39 | Outpatient (BNVA) | payer OTHER, SELFPAY | PROVIDERS: PCP Internal Medicine; Referring Provider Internal Medicine; Visit Provider Internal Medicine | DX: R91.8 Other nonspecific abnormal finding of lung field (principal); G47.33 Obstructive sleep apnea (adult) (pediatric) | CPT/HCPCS: 99212 ==

== ENCOUNTER 2024-02-08 10:32 | Outpatient (AMB) | payer OTHER, SELFPAY ==
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
[2024-02-08 10:41] VITALS: BP 119/80; PULSE 92; BMI 32.6
== END 2024-02-08 11:30 | disposition home or self-care (01) ==
PROVIDERS: PCP Internal Medicine; Visit Provider Physician Assistant
DX: Z01.818 Encounter for other preprocedural examination (principal); Z12.11 Encounter for screening for malignant neoplasm of colon
CPT/HCPCS: S0285

== ENCOUNTER → 2024-02-08 10:32 | Outpatient (BNVA) | payer OTHER, SELFPAY | PROVIDERS: PCP Internal Medicine; Visit Provider Physician Assistant ==

== ENCOUNTER 2024-04-08 11:27 | Outpatient (AMB) | payer OTHER, SELFPAY ==
--- NOTE | 2024-04-08 11:29 | A.OFFVIS_ITS ---
Intake Visit Reasons: erectile dysfunction Intake Note: New Patient presents today for initial visit to establish treatment for : erectile dysfunction Diabetic: yes Urology Medications: sildenafil prn Allergies to Antibiotic: none Blood Thinner: none Waterproofing Mixer Required: No Accompanied by: Self / Same As Patient Allergies tree nut [TREE NUT] Allergy (Severe, Verified 04/08/24 11:39) ANAPHYLAXIS HPI Comments Details: Jair is a 43-year-old male patient of Dr. Bowden. He has a past medical history of pulmonary nodules, aspiration pneumonia, dyspnea due to COVID-19, obstructive sleep apnea, post COVID syndrome, diabetes, and nightmares. He presents to the office today as a new patient for erectile dysfunction. In discussion with the patient today he reports since his diagnosis of COVID and hospitalization for COVID in 2020 he has been experiencing issues with obtaining and maintaining his erections. He reports at times he is able to obtain erections that are adequate for penetration however these are very infrequent. He reports also being newly diagnosed with diabetes due to increased steroid use for treatment of COVID. He reports having trialed p.r.n. Viagra prescribed by his PCP however feels this is variable as he is able to obtain erections and at times is not. He otherwise denies any bothersome urinary issues or concerns. He denies urinary urgency, urinary frequency, incontinence, nocturia, hematuria, dysuria, foul smelling urine, changes to urinary stream, flank pain, fever, and or chills. He is happy with his current voiding parameters. He also reports feeling his penis has gotten smaller. Discussed at length potential causes of erectile dysfunction as well as buried penis. In office urinalysis results reviewed with the patient today. He otherwise offers no other issues or concerns at this time. [facility] Medical History Pulmonary nodules Hyperglycemia Aspiration pneumonia Dyspnea due to COVID-19 ELIDA (obstructive sleep apnea) Post-COVID syndrome Pneumonia due to COVID-19 virus Diabetes Cough Nightmare No known health problems Social History Household Members: Spouse Housing: House Do you presently have visiting nurse or other home services: No Alcohol intake: current Alcohol intake frequency: holidays/special occasions only Comment: pt sleeping Patient Tobacco Use Status: Never used Tobacco Second Hand Smoke Exposure: No Substance Use Type: Marijuana service: Yes 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 occupational status: employed 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 Review of Systems Const Reports as per HPI Eyes Reports no additional complaints ENT Reports no additional complaints Card Reports as per HPI Resp Reports as per HPI GI Reports no additional complaints Reports as per HPI Musc Reports no additional complaints Neuro Reports no additional complaints Psych Reports no additional complaints Endo Reports as per HPI Pedro/Lymph Reports no additional complaints Aller/Immun Reports no additional complaints Physical Exam Const General: cooperative, healthy appearing, comfortable, no acute distress, well developed, alert and awake Nutritional Appearance: overweight Orientation/consciousness: patient oriented x3 Limitations: no limitations HEENT Head: Yes normal to inspection, Yes normocephalic and Yes atraumatic Ears: hearing grossly normal bilaterally Eyes General: appearance normal, both eyes and all related structures Neck Neck: Yes normal visual inspection and Yes trachea midline Chest Chest palpation & inspection: normal inspection of the chest Resp Effort & Inspection: normal respiratory effort and able to speak in complete sentences Cardio Rate: regular rate GI Inspection: Yes normal to inspection General: Yes no CVA tenderness Back/Spine/Pelvis Back: no CVA tenderness Skin General skin exam: no rashes or lesions noted Neuro General: patient oriented x3 Extrem General: Yes normal to inspection Psych Appearance: grossly normal and well kempt Mental Status: mental status grossly normal Speech and movement: Normal speech and movement present and Clear speech present Affect: normal affect Attitude: cooperative Thought process: Normal thought process present Thought content: Normal thought content present Insight: Fair insight present (Psych) Judgement: Fair judgement present (Psych) Results AMB Urinalysis, Automated UA Leukoctes 0 Henrry/uL Last Edit by [employer] on 04/08/24 11:44 UA Nitrite Negative Last Edit by [employer] on 04/08/24 11:44 UA Urobilinogen 0.2 mg/dL Last Edit by [employer] on 04/08/24 11:44 UA Protein 0 mg/dL Last Edit by [employer] on 04/08/24 11:44 UA pH 5.0 Last Edit by [employer] on 04/08/24 11:44 UA Blood 0 Shar/uL Last Edit by [employer] on 04/08/24 11:44 UA Specific [place] 1.015 Last Edit by [employer] on 04/08/24 11:44 UA Ketone Negative Last Edit by Clemente Escalante on 04/08/24 11:44 UA Bilirubin 0 mg/dL Last Edit by Clemente Escalante on 04/08/24 11:44 UA Glucose 1000 mg/dL Last Edit by Clemente Escalante on 04/08/24 11:44 Results Reviewed Results Reviewed: Laboratory Last Values Urine pH (Auto) 5.0 04/08/24 11:41 Specific [place] (Auto) 1.015 04/08/24 11:41 Urine Protein (Auto) 0 mg/dL 04/08/24 11:41 Glucose (UA)(Auto) 1000 mg/dL 04/08/24 11:41 Urine Ketones (Auto) Negative 04/08/24 11:41 Urine Blood (Auto) 0 Shar/uL 04/08/24 11:41 Urine Nitrite (Auto) Negative 04/08/24 11:41 Urine Bilirubin (Auto) 0 mg/dL 04/08/24 11:41 Urine Urobilinogen (Auto) 0.2 mg/dL 04/08/24 11:41 Leukocyte Esterase (Auto) 0 Henrry/uL 04/08/24 11:41 Assessment & Plan Assessment & Plan (1) Erectile dysfunction associated with type 2 diabetes mellitus: Code(s): E11.69 - Type 2 diabetes mellitus with other specified complication; N52.1 - Erectile dysfunction due to diseases classified elsewhere Category: Medical Plan In office urinalysis results reviewed with the patient today; as noted above; discussed, educated, and stressed the importance of adequate hydration; pH 5.0. Will obtain testosterone free and total, LH, SHBG, FSH, estradiol, and prolactin for further assessment evaluation. Stop as needed Viagra. Start Cialis 5 mg daily; prescription provided; Prescription provided for p.r.n. Cialis 1 hour prior to sexual activity; [facility] discussed retail pharmacy. Patient currently denies any bothersome urinary issues. He reports be happy with current voiding parameters. Discussed at length potential causes of erectile dysfunction as well as buried penis. Discussed lifestyle modifications to assist with erectile dysfunction; this was discussed at length. Follow-up in 1-3 months with labs to be completed prior; or sooner with any issues, concerns, and or questions. Orders: Orders AMB Urinalysis Automated Today Z13.9 - Encounter for screening, unspecified Lutenizing Hormone Today E11.69 - Type 2 diabetes mellitus with other specified complication, N52.1 - Erectile dysfunction due to diseases classified elsewhere Sex Hormone Binding Globulin Today E11.69 - Type 2 diabetes mellitus with other specified complication, N52.1 - Erectile dysfunction due to diseases classified elsewhere Testosterone, Free/Total Today E11.69 - Type 2 diabetes mellitus with other specified complication, N52.1 - Erectile dysfunction due to diseases classified elsewhere Prolactin Today E11.69 - Type 2 diabetes mellitus with other specified complication, N52.1 - Erectile dysfunction due to diseases classified elsewhere Prostate Specific Antigen Today E11.69 - Type 2 diabetes mellitus with other specified complication, N52.1 - Erectile dysfunction due to diseases classified elsewhere Estradiol Ultra Sensitive Today E11.69 - Type 2 diabetes mellitus with other specified complication, E29.1 - Testicular hypofunction, N52.1 - Erectile dysfunction due to diseases classified elsewhere Follicle Stimulating Hormone Today E11.69 - Type 2 diabetes mellitus with other specified complication, N52.1 - Erectile dysfunction due to diseases classified elsewhere Medications: New tadalafil (Cialis) 20 mg PO .PRN 48 tabs 0RF Sexual activity 90 days E11.69 - Type 2 diabetes mellitus with other specified complication, N52.1 - Erectile dysfunction due to diseases classified elsewhere tadalafil 5 mg PO DAILY 90 tabs 1RF sexual activity 90 days E11. - Type 2 sean betes mellitus with other specified complication, N52.01 - Erectile dysfunction due to arterial insufficiency, N52.1 - Erectile dysfunction due to diseases classified elsewhere Patient Instructions: The patient had an opportunity to ask questions regarding the treatment plan. All questions were answered. Physical exam, labs, and imaging were discussed and reviewed in detail. As well as risks, benefits, and discussion of treatment choices. No major barriers to understanding were identified. The patient expressed understanding and agreement with the above treatment plan. The patient was made aware they should contact our office by phone for worsening of their current condition, the appearance of new symptoms, or with any questions or concerns. Compliance is encouraged with any medications and follow up testing that is ordered. It is a privilege to be allowed the opportunity to participate in? your urological care.? Again, if you have any questions or concerns If you have any questions or concerns please do not hesitate to contact me. The office is [phone]. This note is constructed using voice recognition software. While every effort has been made to ensure accuracy clinical sociologist errors may have been included. Yours sincerely, RADHA Mccall Coding Level of Care Code New Pt Level 4 (65364) Diagnoses Erectile dysfunction associated with type 2 diabetes mellitus E11.69; N52.1
== END 2024-04-08 12:09 | disposition home or self-care (01) ==
PROVIDERS: PCP Internal Medicine; Visit Provider Nurse Practitioner Family
DX: E11.69 Type 2 diabetes mellitus with other specified complication (principal); N52.1 Erectile dysfunction due to diseases classified elsewhere; Z13.9 Encounter for screening, unspecified
CPT/HCPCS: 99204

== ENCOUNTER → 2024-04-08 11:27 | Outpatient (BNVA) | payer OTHER, SELFPAY | PROVIDERS: PCP Internal Medicine; Visit Provider Nurse Practitioner Family | DX: E11.69 Type 2 diabetes mellitus with other specified complication (principal); N52.1 Erectile dysfunction due to diseases classified elsewhere | CPT/HCPCS: 81003; 99202 ==

== ENCOUNTER 2025-01-29 15:22 | Emergency (ER) | payer OTHER, SELFPAY ==
--- NOTE | ~2025-01-29 | XR_ITS ---
EXAMINATION: XR KNEE, RIGHT CLINICAL INFORMATION: fall COMPARISON: None available. TECHNIQUE: Four views of the right knee. FINDINGS: No fracture, dislocation, or suspicious bone lesion. Normal bone mineralization. Normal alignment. Joint spaces are preserved. No significant arthropathy. No significant joint effusion. Soft tissues appear normal. XR/XR knee RT 3V IMPRESSION: Normal right knee. Electronically signed by: Joseph Coronado MD 01/29/2025 04:00 PM EDT
[2025-01-29 15:40] VITALS: BP 126/75; PULSE 84; RESP 18; TEMP 37.2; O2SAT 94; BMI 33.8
--- NOTE | 2025-01-29 15:41 | ED_ITS ---
HPI - General Adult General Chief complaint: Fall Stated complaint: fell last night, knee injury Time Seen by Provider: 01/29/25 17:31 Source: patient and family (patient's ) Mode of arrival: ambulatory Limitations: no limitations History of Present Illness ED Provider: Emeli Rowe PA-C HPI narrative: 44 year old male with PMHx T2DM, ELIDA presenting to the ED c/o R knee pain/injury. Reports was walking his dog last night, mis-stepped on crack in the road, and twisted his right knee. Reports initially only mild pain, however later that evening pain became more intense, especially to the anterior aspect of the knee and felt like a pain within the knee he couldn't reach. Reports now has had difficulty ambulating and bearing full weight to the leg, pain alongside the medial aspect of the knee, and has tried a knee brace to help. Denies paresthesias, pallor, cold to touch. Denies striking knee or abrasions to knee. Onset (ago): day(s) (1) Location: lower extremity Radiation: non-radiation Pain Consistency: constant Relieving factors: rest Exacerbating factors: movement Associated symptoms: denies other symptoms Treatments prior to arrival: other (knee brace) Related Data Home Medications ?Medication ?Instructions ?Recorded ?Confirmed trazodone 100 mg tablet 100 mg PO BEDTIME PRN Sleep 03/31/21 04/05/24 Lactobacillus acidophilus 1 tab PO DAILY 09/03/22 04/05/24 albuterol sulfate 90 mcg/actuation 2 puff inhalation Q4H PRN 09/03/22 04/05/24 aerosol inhaler COUGH/SHORTNESS OF BREATH carboxymethylcellulose sodium 0.5 1 drp ophthalmic (eye) QID PRN Dry 09/03/22 04/05/24 % eye drops Eye(S) diclofenac sodium 1 % topical gel 2 g topical QID 09/03/22 04/05/24 fluticasone 250 mcg-salmeterol 50 1 inh inhalation BID 09/03/22 04/05/24 mcg/dose blistr powdr for inhalation (Advair Diskus) lorazepam 0.5 mg tablet 0.5 mg PO DAILY PRN Anxiety 09/03/22 04/05/24 empagliflozin 10 mg tablet 10 mg PO DAILY 04/18/24 06/14/24 (Jardiance) Previous Rx's ?Medication ?Instructions ?Recorded acetaminophen 500 mg tablet 1,000 mg (2 x 500 mg) PO Q8H PRN 12/28/23 (Tylenol Extra Strength) pain #30 tabs cyclobenzaprine 10 mg tablet 10 mg PO TID PRN muscle spasm #14 12/28/23 tabs ibuprofen 600 mg tablet 600 mg PO Q6H PRN pain #30 tabs 12/28/23 lidocaine 5 % topical patch 1 patch topical DAILY #30 ea 12/28/23 (Lidoderm) bisacodyl 5 mg tablet,delayed 20 mg (4 x 5 mg) PO ONCE PRN 02/08/24 release (Dulcolax (bisacodyl)) colonoscopy prep 1 day #4 tabs polyethylene glycol 3350 17 238 g PO ONCE PRN laxative effect 02/08/24 gram/dose oral powder (Miralax) 1 day #238 grams tadalafil 20 mg tablet (Cialis) 20 mg PO .PRN Sexual activity 90 09/04/24 days #48 tabs tadalafil 5 mg tablet 5 mg PO DAILY sexual activity 90 09/04/24 days #90 tabs Allergies Allergy/AdvReac Type Severity Reaction Status Date / Time tree nut [TREE NUT] Allergy Severe ANAPHYLAXIS Verified 01/29/25 15:41 Review of Systems Constitutional: Constitutional: Reports no additional constitutional complaints, Denies chills, Denies fever(s) and Denies night sweats Eyes: Eyes: Reports no additional eye complaints, Denies blurry vision, Denies loss of vision and Denies eye pain ENT: Denies dizziness Cardiovascular: Cardiovascular: Reports no additional cardiovascular complaints, Denies chest pain, Denies lightheadedness, Denies Loss of Consciousness and Denies dyspnea Respiratory: Respiratory: Reports no additional respiratory complaints and Denies dyspnea Gastrointestinal: Gastrointestinal: Reports no additional gastrointestinal complaints, Denies abdominal pain and Denies change in bowel habits Genitourinary: Genitourinary: Reports no additional male genitourinary complaints, Denies hematuria, Denies difficulty urinating and Denies dysuria Musculoskeletal: Musculoskeletal: Reports no additional musculoskeletal complaints, Reports abnormal gait, Reports arthralgias, Reports joint swelling, Reports limited range of motion, Denies numbness and Denies tingling Comments: Reports pain and swelling to medial aspect of R knee. Neurologic: Reports abnormal gait, Denies dizziness, Denies loss of vision, Denies numbness and Denies tingling Psychiatric: Psychiatric: Reports no additional psychiatric complaints Endocrine: Endocrine: Reports no additional endocrine complaints Hematologic/Lymphatic: Hematologic/Lymphatic: Reports no additional hematologic/lymphatic complaints Allergic/Immunologic: Allergic/Immunologic: Reports no additional allergic/immunologic complaints PMFSH Past Medical History Attestation statement: The following information was validated with the patient. (all information validated with the patient's ) Source: old records reviewed, obtained from family (patient's provided additional history and confirmed the history provided by the patient.) and nursing notes reviewed Medical History Pulmonary nodules Hyperglycemia Aspiration pneumonia Dyspnea due to COVID-19 ELIDA (obstructive sleep apnea) Post-COVID syndrome Pneumonia due to COVID-19 virus Diabetes Cough Nightmare No known health problems Social History Social History Household Members: Spouse Housing: House Do you presently have visiting nurse or other home services: No Alcohol intake: current Alcohol intake frequency: holidays/special occasions only Comment: pt sleeping Patient Tobacco Use Status: Never used Tobacco Second Hand Smoke Exposure: No Substance Use Type: Marijuana Advance Directives: No Advance Directives Information Provided: Yes service: Yes Current occupational status: employed 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 Physical Exam ED Vital Signs: Vital Signs - 24 hr 01/29/25 15:40 Temperature 99.0 F Pulse Rate 84 Respiratory Rate 18 Blood Pressure 126/75 Pulse Oximetry 94 Oxygen Delivery Method Room Air BMI result Body Mass Index 33.8 Const General: cooperative, no acute distress, alert and awake Nutritional Appearance: well nourished Orientation/consciousness: patient oriented x3 Limitations: no limitations HENMT Head: Yes normal to inspection and Yes atraumatic Ears: hearing grossly normal bilaterally and external ears normal General nose exam: Normal external nose present, no nasal discharge noted and no epistaxis Face and sinus: Yes normal facial exam, No abrasion and No laceration Mouth: Normal oral and palatal mucosa present, no drooling and no muffled voice Eyes General: appearance normal, both eyes and all related structures Periorbital: periorbital findings normal Eyelids: Yes eyelids normal Conjunctivae: conjunctivae normal Pupils: Equal, round and reactive pupils present EOM: EOMs intact bilaterally Neck Neck: Yes normal visual inspection, Yes full ROM and Yes no lymphadenopathy Chest Chest palpation & inspection: normal inspection of the chest Resp Effort & Inspection: normal respiratory effort and able to speak in complete sentences GI Inspection: Yes normal to inspection Neuro General: patient oriented x3, moves all extremities and CN's II-XI intact bilaterally Cranial nerves: Yes Equal, round and reactive pupils present Cognition (Neuro): normal cognition Extrem Other: + TTP over medial aspect of R knee, mild swelling. + Adrianna Test Unable to ambulate without limp and unable to bear full weight. Limited ROM secondary to pain. No paresthesia, pallor, cold to touch. Sensation intact. General: Yes normal to inspection and Yes capillary refill normal Right lower extremity: normal to inspection and full ROM Left lower extremity: knee Details: tenderness, swelling, abnormal ROM, knee ligament exam abnormal and other (+ Adrianna Test); no abrasions, no lacerations and no ecchymosis Psych Appearance: grossly normal Mental Status: mental status grossly normal Affect: normal affect Attitude: cooperative Thought process: Normal thought process present Thought content: Normal thought content present Insight: Good insight present (Psych) Course Course Course Narrative: RME, this is a rapid medical exam performed by Skinny Malik please refer to primary provider for complete H&P- 44 year old male presents for evaluation of right knee pain after a fall last night while walking his dog. Plan for x-ray Procedures Orthopedic Splinting/Casting Injury #1: Side: right Lower Extremity Injury Location: knee Lower Extremity Immobilizer: knee immobilizer Other Orthopedic Equipment: crutches Medical Decision Making Medical Decision Making MDM Narrative: Patient is a 44 year old assigned male at with a history of DM and ELIDA presenting to the emergency department today with right knee pain. Patient's physical exam was as noted in the physical exam portion of this note. Patient's exam is concerning for an acute ACL vs. meniscus injury. Patient's right knee x- ray showed no acute bony process. I explained my physical exam findings as well as all test results to the patient and the patient's . I answered all questions asked by the patient and the patient's . Patient's right knee was placed in a knee immobilizer, without incident. Patient's PMS was intact prior to and after immobilizer application. Patient was given crutches with crutch instructions and was able to ambulate with them appropriately while in the department. I stressed the importance of the patient taking his medication as directed (either prescribed or as the over the counter packaging recommends). I stressed the importance of the patient following up with his primary care provider and the orthopedic team. I stressed the importance of the patient returning to the emergency department immediately if his symptoms were to worsen or if he were to develop any dizziness, shortness of breath, difficulty breathing, chest pain, blurry vision, loss of vision, nausea, vomiting, abdominal pain, fever, chills, back pain, or any other complaints. Patient and the patient's verbalized agreement and understanding with this treatment plan and discharge. Differential Diagnosis Differential Diagnoses: The differential diagnosis associated with the presentation includes Right knee pain ACL injury Right knee sprain Meniscus injury Admission/Observation Consideration of admission/observation: Escalation of care including admission/observation considered Patient would have been admitted to the hospital had his work up had any findings where hospital admission was appropriate and his clinical presentation warranted hospital admission. Independent Interpretation I performed an independent interpretation of an: Plain X-Ray Interpretation: My interpretation is in agreement with the radiologist's impression of this imaging study. EXAMINATION: XR KNEE, RIGHT CLINICAL INFORMATION: fall COMPARISON: None available. TECHNIQUE: Four views of the right knee. FINDINGS: No fracture, dislocation, or suspicious bone lesion. Normal bone mineralization. Normal alignment. Joint spaces are preserved. No significant arthropathy. No significant joint effusion. Soft tissues appear normal. XR/XR knee RT 3V IMPRESSION: Normal right knee. Electronically signed by: Joseph Coronado MD 01/29/2025 04:00 PM EDT Dictated By: Joseph Coronado MD Signed By: Electronically signed by Joseph Coornado MD 01/29/25 1600 Radiology Impression Discussion of test interpretation with radiology: I have reviewed the radiologist's reading. Independent Historian Clinical information obtained from an independent historian. History obtained from or confirmed by: Spouse (patient's provided additional history and confirmed the history provided by the patient.) Discharge Plan Discharge Clinical Impression: Knee sprain Patient Disposition: Home, Self-Care Instructions: Knee Sprain (DC), Crutch Instructions (ED) Additional Instructions: Follow up with your primary care provider and the orthopedic team. You may remove the immobilizer when stationary. Please remain non weight bearing on your right lower extremity. Return to the emergency department immediately if your symptoms worsen or if you develop any numbness, tingling, dizziness, shortness of breath, difficulty breathing, chest pain, blurry vision, loss of vision, nausea, vomiting, abdominal pain, fever, chills, back pain, or any other complaints. Please see the information below about our Patient Portal. If you are not yet enrolled in the [facility] Patient Portal, you will receive an enrollment email invitation following your visit to any [facility] setting. You may also self-enroll in the Patient Portal by visiting our website: [email or web address] The following information is required to access the Patient Portal: - Your [facility] Medical Record Number - Your personal home email address (must match what is in your electronic medical record, Registration staff can assist with this) - Name - Date of Capabilities of the Patient Portal: - Message some providers - View upcoming appointments - Access your health summary, medical history, and visit history - View current conditions and allergies - View procedure and lab results - View your medications, including guidelines, side effects, and precautions - Complete pre-appointment questionnaires requested by your provider - Ready summary reports of your office visits and procedures To access the Patient Portal Mobile [employer], follow these directions: - Search [employer] in the Morgan Store or Leostream Store - Download the Morgan - Search for [facility] - Enter your login/password Prescriptions: No Action tadalafil 5 mg tablet 5 mg PO DAILY 90 Days Qty: 90 1RF tadalafil [Cialis] 20 mg tablet 20 mg PO .PRN 90 Days Qty: 48 0RF albuterol sulfate 90 mcg/actuation Hfa Aerosol Inhaler 2 puff INHALATION Q4H PRN (Reason: COUGH/SHORTNESS OF BREATH) carboxymethylcellulose sodium 0.5 % Drops 1 drp OPHTHALMIC (EYE) QID PRN (Reason: Dry Eye(S)) diclofenac sodium 1 % Gel 2 g TOPICAL QID Protocol: Apply to: Apply to: KNEE PAIN fluticasone propion-salmeterol [Advair Diskus] 250-50 mcg/dose Blister With Device 1 inh INHALATION BID Lactobacillus acidophilus Tablet,Chewable 1 tab PO DAILY lorazepam 0.5 mg Tablet 0.5 mg PO DAILY PRN (Reason: Anxiety) cyclobenzaprine 10 mg tablet 10 mg PO TID PRN (Reason: muscle spasm) Qty: 14 0RF ibuprofen 600 mg tablet 600 mg PO Q6H PRN (Reason: pain) Qty: 30 0RF acetaminophen [Tylenol Extra Strength] 500 mg tablet 1,000 mg PO Q8H PRN (Reason: pain) Qty: 30 0RF lidocaine [Lidoderm] 5 % adhesive patch,medicated 1 patch topical DAILY Qty: 30 0RF Rx Instructions: leave on most painful area for up to 12 hrs trazodone 100 mg tablet 100 mg PO BEDTIME PRN (Reason: Sleep) Jardiance 10 mg tablet 10 mg PO DAILY bisacodyl [Dulcolax (bisacodyl)] 5 mg tablet,delayed release (DR/EC) 20 mg PO ONCE PRN (Reason: colonoscopy prep) 1 Days Qty: 4 0RF Rx Instructions: Day before procedure @ 12 noon Take 4 tablets by mouth followed by large glass of water polyethylene glycol 3350 [Miralax] 17 gram/dose powder 238 g PO ONCE PRN (Reason: laxative effect) 1 Days Qty: 238 0RF Rx Instructions: Take as directed by mouth the day before your procedure. Referrals: [facility] Family Medicine [Provider Group] (Call to establish and follow up with a primary care provider. If you already have a primary care provider, please follow up with them.) [facility] Primary Care[facility] [Provider Group] (Call to establish and follow up with a primary care provider. If you already have a primary care provider, please follow up with them.) [facility] Primary Care[facility] [Provider Group] (Call to establish and follow up with a primary care provider. If you already have a primary care provider, please follow up with them.) [facility] Primary [facility] [Provider Group] (Call to establish and follow up with a primary care provider. If you already have a primary care provider, please follow up with them.) [facility] [Provider Group] (Call to establish and follow up with an orthopedic provider.) Stand Alone Forms: Work/School Release Interventions: ED Discharge Assessment Last Done: 01/29/25 18:46 Print Language: Ukrainian
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
--- OUTSIDE RECORDS SUMMARY | 2025-01-29 17:58 | XMS_ITS | Data Portability ---
Author Organization MELODIE Mendoza [facility], [address] Address [address] [place] [address] Assessment No assessment recorded. Plan of Treatment Reminders Order Date Submit Date Provider Last Modified By Organization Details Last Modified Time Details Appointments None recorded. Lab rapid SARS CoV 2 Ag, QL IA, respiratory specimen 2022 023 [email or web address], [address] [place] [address], [phone], 3 15:24:29 rapid strep group A, throat 2022 023 [facility] _[facility], [address] [place] [address], [phone], 3 15:24:29 streptococc us group A, culture, throat 2022 023 [facility], [address] [place] [address], [place], [address], 3 12:05:41 Referral None recorded. Procedures None recorded. Surgeries None recorded. Imaging None recorded. Medication Orders polymyxin B sulfate 10,000 unit-trimet hoprim 1 mg/mL eye drops 2022 023 [id number], [address] [place], [place], [phone], 3 15:24:37 amoxicillin 875 mg tablet 2022 023 [place] [id number], [address] [place], [place], [phone], 15:24:40 prednisone 20 mg tablet 2022 023 [id number], [address] [place], [place], [phone], 15:24:36 Patient TargetsNo targets recorded. Patient Instructions Encounter Date Encounter Id Patient Instructions Last Modified By Organization Details Last Modified Time 03/03/2023 [id number] coronavirus (covid-19): care instructions Not available 03/03/2023 15:24:29 sore throat: car e instructions Not available 03/03/2023 15:24:29 Use prescribed antibiotic eye drops or ointment as directed to treat the infection. Apply a warm compress (towel soaked in warm water) to the affected eye 3 to 4 times a day. Do this just before applying medicine to the eye. Use a warm, wet cloth to wipe away crusting of the eyelids in the morning. This is caused by mucus drainage during the night. You may also use saline irrigating solution or artificial tears to rinse away mucus in the eye. Do not put a patch over the eye. Wash your hands before and after touching the infected eye. This is to prevent spreading the infection to the other eye, and to other people. Don't share your towels or washcloths with others. You may use acetaminophen or ibuprofen to control pain, unless another medicine was prescribed. Talk with your healthcare provider before using these medicines if you have chronic liver or kidney disease. Also talk with your provider if you have ever had a stomach ulcer or digestive bleeding. Don't wear contact lenses until your eyes have healed and all symptoms are gone. Follow-up care Follow up with your healthcare provider, or as advised. When to seek medical advice Call your healthcare provider right away if any of these occur: Worsening vision Increasing pain in the eye Increasing swelling or redness of the eyelid Redness spreading around the eye Discussed potential complications and intervention options with the patient during this visit. Patient was instructed to increase room humidity and eat soft bland foods. Raising the head of the bed, lozenges, and saline nasal spray were also recommended. Patient may take ibuprofen or acetaminophen as needed for pain control. If the issue does not improve in 24-48 hours, patient should return to the clinic for follow-up. You have been prescribed an antibiotic for your bacterial illness. While antibiotics are sometimes necessary, they can have a negative impact upon the healthy bacteria within your body. This can result in diarrhea/loose stools and yeast infections. By taking probiotics during the course of your prescription, you can lessen the probability of these undesirable side effects. Probiotics can be purchased [id number] at your pharmacy in the form of capsules or gummies. They are also found naturally in yogurt with live cultures. Mix salt into a quarter-glass of warm water and stir until no more salt will dissolve. Gargle and spit out the salt water mixture one mouthful at a time until the glass is empty. Repeat 4 times daily. Hand hygiene is a pride measure for preventing spread to others, especially after coughing or sneezing and before preparing foods or eating, and we remind all patients of its importance. Please discard of your current tooth brush and get a new one after being on the antibiotic for 3-4 days to prevent reinfection. You are considered contagious until you have the antibiotic for 24 hours. We have sent out for lab results, typically take 3-5 days to return. Not available 03/03/2023 15:23:47 If you test positive for COVID-19, stay home for at least 5 days and isolate from others in your home. You are likely most infectious during these first 5 days. Wear a high-quality mask if you must be around others at home and in public. Do not go places where you are unable to wear a mask. For travel guidance, see CDC? s Travel webpage. Do not travel. Stay home and separate from others as much as possible. Use a separate bathroom, if possible. Take steps to improve ventilation at home, if possible. Don? t share personal household items, like cups, towels, and utensils. Monitor your symptoms. If you have an emergency warning sign (like trouble breathing), seek emergency medical care immediately. If you had symptoms and: Your symptoms are improving You may end isolation after day 5 if: You are fever-free for 24 hours (without the use of fever-reducing medication). Your symptoms are not improving Continue to isolate until: You are fever-free for 24 hours (without the use of fever-reducing medication). Your symptoms are improving. Regardless of when you end isolation Until at least day 11: Avoid being around people who are more likely to get very sick from COVID-19. Remember to wear a high-quality mask when indoors around others at home and in public. Do not go places where you are unable to wear a mask until you are able to discontinue masking (see below). For travel guidance, see [facility]? s Travel webpage. Not available 03/03/2023 15:08:03 Reason for Referral None Reported. Results Created Date Observation Date Name Description Value Unit Range Abnormal Flag Note LastModifiedBy Organization Detail LastModifiedTime 03/03/2003/05/2023 BETA STREP GP A CULTU RE beta strep gp A culture COMMEN T abnormal Beta- hemol ytic colon ies, not group A Strep tococ cus isola abbi. Refer ence Range : Negat kamilah Penic illin and ampic illin are drugs of choic e for treat ment of beta- hemol ytic strep tococ kenyatta infec tions . Susce ptibi lity testi ng of penic illin s and other beta- lacta m agent s appro layo by the FDA for treat ment of beta- hemol ytic strep tococ kenyatta infec tions need not be perfo rmed megha castellano se nonsu scept ible isola demetria are extre jayson rare in any beta- hemol ytic strep tococ cus and have not been repor abbi for Strep tococ cus pyoge shelley (grou p A). (CLSI ) Not Available [facility] ([facility]) [address] [facility], [place], [address], 03/05/2023 12:05:41 03/03/2003/03/2023 rapid strep group A, throa t Unknown Analyte Normal = Negati ve Not Available [address] [address] [place] [address], [place], [address], 03/03/2023 15:04:32 03/03/2003/03/2023 rapid strep group A, throa t Unknown Analyte negati ve Not Available [address], [address], 03/03/2023 15:04:32 03/03/20 23 03/03/2023 rapid SARS CoV 2 Ag, QL IA, respi rator y speci men Unknown Analyte Normal =Negat kamilah Not Available [address], [address], 03/03/2023 15:04:27 03/03/20 23 03/03/2023 rapid SARS CoV 2 Ag, QL IA, respi rator y speci men Unknown Analyte negati ve Not Available [address], [address], 03/03/2023 15:04:27 Result Notes None recorded. Problems No Known Problems Medical Equipment None Reported. Allergies Allergen ID Allergen Name Allergen Category Reaction Reaction Severity Criticality Documentation Date Start Date Code Code System Note Provider Name and Address Organization Details Recorded Time [id number] tree nut food Not available Not available Not available 03/03/2023 [id number] UNMELODIE Reina - [facility] 15:05:18 Medications Name Sig Start Date Stop Date Status Note LastModified by Organization Details LastModified Time ibuprofen 800 mg tablet 03/03 completed Not Available Not Available Not Available prednisone 20 mg tablet Take 2 tablets every day by oral route in the morning for 4 days. 2022 active Not Available Not Available Not Avai lable sertraline 100 mg tablet 03/03 completed Not Available Not Available Not Available amoxicillin 875 mg tablet Take 1 tablet every 12 hours by oral route with meals for 10 days. 2022 active Not Available Not Available Not Avai lable lorazepam 0.5 mg tablet 03/03 completed Not Available Not Available Not Available trazodone 100 mg tablet active Not Available Not Available Not Available carboxymeth ylcellulose sodium 0.5 % eye drops 03/03 completed Not Available Not Available Not Available polymyxin B sulfate 10,000 unit-trimet hoprim 1 mg/mL eye drops INSTILL 1 DROP INTO AFFECTED EYE(S) BY OPHTHALMI C ROUTE EVERY 6 HOURS x 7 days. 2022 active Not Available Not Available Not Avai lable amoxicillin 875 mg-karyn gamboa clavulanate 125 mg tablet TAKE 1 TABLET BY MOUTH EVERY 12 HOURS FOR 7 DAYS 03/03 completed Not Available Not Available Not Available modafinil 100 mg tablet 03/03 completed Not Available Not Available Not Available diclofenac 1 % topical gel 03/03 completed Not Available Not Available Not Available Wixela Inhub 250 mcg-50 mcg/dose powder for inhalation 03/03 completed Not Available Not Available Not Available Vitals Date Recorded Body height Body mass index (BMI) Body weight Pain severity - 0-10 verbal numeric rating [Score] - Reported Respiratory rate Oxygen saturation Oxygen saturation in Arterial blood by Pulse oximetry Heart rate Body temperature Systolic blood pressure Diastolic blood pressure Provider Name and Address Organization Details Last Updated DateTime 3 180.34 cm 32.8 kg/m2 262087. 21 g 8 18 /min 96 % 96 % 94 /min 99.2 [degF] 128 mm[Hg] 84 mm[Hg] Iris SEWELL [facility] 15:07:47 Social History Question Answer Notes LastModified by Organizat ion Details LastModified Time Tobacco Smoking Status Never Smoker MELODIE Britton [facility] 03/03/2023 15:06:38 What Is Your Level Of Alcohol Consumption? Occasional Information not available 03/03/2023 How Many Times Per Week Do You Consume Alcohol? 1-2 Times Per Week Information not available 03/03/2023 Do You Use Any Illicit Or Recreational Drugs? No Information not available 03/03/2023 Have You Recently Traveled Abroad? No Information not available 03/03/2023 Do You Or Have You Ever Used Any Other Forms Of Tobacco Or Nicotine? No Information not available 03/03/2023 Sex: Unknown Functional Status None recorded. Mental Status None recorded. Family History Relationship Description Onset Age of this Age Resolved Age Notes LastModified by Organization Details LastModified Time Father No current problems or disability [email or web address] Not available 03/03 15:06:20 Mother No current problems or disability [email or web address] Not available 03/03 15:06:20 Medical History No medical history recorded. Immunizations Vaccine Type Date Status Note Provider Nam e and Address Organization Details Recorded Time COVID-19, mRNA, LNP-S, PF, 100 mcg/0.5mL dose or 50 mcg/0.25mL dose 1 completed Iris Monfette null, [place] - [facility] 03/03/2023 15:05:09 COVID-19, mRNA, LNP-S, PF, 30 mcg/0.3 mL dose 1 completed Iris Monfette null, [place] - [facility] 03/03/2023 15:05:09 COVID-19, mRNA, LNP-S, PF, 30 mcg/0.3 mL dose 1 completed Iris Monfette null, [place] - [facility] 03/03/2023 15:05:09 pneumococcal polysaccharide PPV23 1 completed Iris Monfette null, [place] - [facility] 03/03/2023 15:05:09 Influenza, split virus, quadrivalent, PF 1 completed Iris Monfette null, [place] - [facility] 03/03/2023 15:05:09 Past Encounters Encounter ID Performer Location Encounter Start Date Encounter Closed Date Diagnosis/Indication Diagnosis SNOMED-CT Code Diagnosis ICD10 Code Diagnosis Note [id number] [place] [address] 03/18/2020 09:43:19 03/18/2020 11:21:13 [id number] [facility] [address] [place] [address] 04/10/2020 08:04:18 04/10/2020 08:25:35 [id number] [facility] [address] [place] [address] 12/25/2019 14:42:32 12/25/2019 15:30:25 [id number] Anna Loving MD [address] [place] [address] 03/03/2023 14:15:27 03/03/2023 15:28:53 Exposure to SARS-CoV-2 554765611 Z20.822 Acute pharyngitis 856818 003 J02.9 Acute conj unctivitis of bilateral eyes 3916923383 40596 H10.33 Health Concerns Section Related Observation LastModified by Organization Detai ls LastModified Time None Recorded Concern Status LastModified by Organization Details LastModified Time None Recorded Advance Directives Directive None Recorded Payers Encounter Date Sequence Insurance Name Policy Number Policy Moy Covered Member ID Moy Member ID Guarantor Name 03/03/2023 [employer] [facility] Jair Irizarry [id number] Jair Irizarry Notes Date Note Type Note Provider Name and Address Organization Details Recorded Time 3 text/html Sore throatReported bypatient.Source of patient informationInformation obtained from patient; Patient arrived at Urgent Care ambulatory; learning styles: auditory Location:throat Severity:mild Quality:sharp; burning Onset/Timin days Associated Symptoms:no sputum production; no shortness of breath; no wheezing; no vomiting; no nausea;sore throat;hoarseness;coughing; sinus pain/ congestion Context:no foreign travel; non-smoker;sick contact Modifying Factors:exposed to Strep non household Tutu Mccord NP [address] [place], [address], [place] - [facility] 03/03/2023 15:25:16
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
--- OUTSIDE RECORDS SUMMARY | 2025-01-29 17:58 | XMS_ITS | Continuity of Care Document ---
Author Name [facility] Organization [facility] Care Team Providers Care Junior Business Analyst Name Role Phone [facility] Unavailable Unavailable Problems Combined list of problems from Department of Defense and Veterans Affairs facilities. It does not include entries that were removed or entered in error. Problem Status Onset Date Problem Type Date of Resolution Comments Source History of SARS-CoV-2 Active 021 Condition Sep 24, 2021 Entered By: NATALY MERRITT Comment: Hospilized 01/10 w PNA on O2Apr 2020 Entered By: NATALY MERRITT Comment: Empyema of left pleural space hospitalizad 02/10 now on IV abx x 30 days via PICCMar 30, 2022 Entered By: NATALY MERRITT Comment: 04/02/21 PFT mild restrictive lung d/o [facility] Attention deficit hyperactivity disorder Active Condition Mar 30, 2022 Entered By: NATALY MERRITT Comment: 03/30/22 EKG NSR [facility] Back pain Active Condition [facility] Candidal balanitis Active Condition [facility] Chronic granulomatous disease Active Condition Dec 05, 2010 Entered By: ROXI SAMAYOA Comment: CT navarro 11/2010 old diseaseMay 2020 Entered By: NATALY MERRITT Comment: Incidental 0.4 cm solid pulmonary nodule within the right middle lobe [facility] Concussion with no loss of consciousness Active Condition [place] Diabetes mellitus Active Condition [facility] Erectile Dysfunction (SCT [id number]) Active Condition [facility] HLD - Hyperlipidemia (SNOMED CT 25393579) Active Condition [place] Insomnia Active Condition [facility]albuminuria [facility] Neck pain Active Condition [place] Obesity (SNOMED CT 512552096) Active Condition [place] Obstructive sleep apnea syndrome Active Condition Aug 16, 2021 Entered By: NATALY MERRITT Comment: severe on home sleep study 01/10 [facility] Posttraumatic stress disorder Active Condition [facility] Splenomegaly Active Condition March 16, 2021 Entered By: NATALY MERRITT Comment: 9 mm hypodensity, which is indeterminate but likely a small hemangioma [facility] Vitamin D Deficiency (SCT 04414145) Active Condition [place] Chest Wall Pain Inactive Condition 01/12/2024 Dec 02, 2010 Entered By: ROXI SAMAYOA Comment: 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 [place] Unspecified fracture of ankle, closed Inactive Condition 01/12/2024 [place] Diagnosis: ICD-10-CM E11.9 Type 2 diabetes mellitus without complications Active Diagnosis [facility] Diagnosis: ICD-10-CM N52.9 Male erectile dysfunction, unspecified Active Diagnosis [facility] Diagnosis: ICD-10-CM M54.9 Dorsalgia, unspecified Active Diagnosis [facility] Diagnosis: ICD-10-CM J30.9 Allergic rhinitis, unspecified Active Diagnosis [facility] Diagnosis: ICD-10-CM Z04.89 Encounter for examination and observation for oth reasons Active Diagnosis [place] Diagnosis: ICD-10-CM F43.10 Post-traumatic stress disorder, unspecified Active Diagnosis [facility] Diagnosis: ICD-10-CM S06.0X0A Concussion without loss of consciousness, initial encounter Active Diagnosis [facility] Diagnosis: ICD-10-CM M54.2 Cervicalgia Active Diagnosis [facility] Diagnosis: ICD-10-CM J31.0 Chronic rhinitis Active Diagnosis [facility] Diagnosis: ICD-10-CM Z46.0 Encounter for fit/adjst of spectacles and contact lenses Active Diagnosis [facility] Medications Combined list of outpatient medications from Department of Defense and Veterans Affairs facilities.Medications provided include 1) outpatient medications from the last 15 months, and 2) patient-reported medications. Medication Details Route Status Patient Instructions Prescription Expires Prescription Number Last Dispense Date Ordering Provider Order Date Order Qty Source ACETAMINOPH EN 500MG TAB TAKE TWO TABLETS BY MOUTH THREE TIMES DAILY NEEDED FOR PAIN ORAL 03/28/2024 [id number] Pamela CASE AVID A 2023 500 [place] ALBUTEROL 90MCG/ACTUA T (CFC-F) INHL,ORAL,8 .5GM DOSE COUNTER INHALE 2 PUFFS BY MOUTH EVERY 4 HOURS NEEDED COUGH/SH ORTNESS OF BREATH RESPIR ATORY (INHAL ATION) 02/25/2024 [id number] JOCE BEARD KAREN S 2022 2 [place] CARBOXYMETH YLCELLULOSE NA 0.5% SOLN,OPH INSTILL 1 DROP INTO EACH EYE FOUR TIMES DAILY NEEDED FOR DRY EYE OPHTHA LMIC 06/20/2024 [id number] MERHAR,NO AH B 2022 15 [facility] CARBOXYMETH YLCELLULOSE NA 1% GEL,OPH APPLY 1 DROP INTO EACH EYE TWICE DAILY NEEDED FOR DRY EYE OPHTHA LMIC ACTIVE 01/28/2026 [id number] 5 MERHAR,NO AH B 2024 15 [facility] CARBOXYMETH YLCELLULOSE NA 1% GEL,OPH APPLY 1 DROP INTO EACH EYE TWICE DAILY NEEDED FOR DRY EYE OPHTHA LMIC DISCONT INUED 02/01/2025 [id number] MERHAR,NO AH B 2023 15 [facility] CYCLOBENZAP RINE HCL 10MG TAB TAKE ONE TABLET BY MOUTH THREE TIMES A DAY FOR MUSCLE SPASM ORAL DISCONT INUED BY PROVIDE R 02/03/2024 [id number] Pamela CASE A 2023 15 [place] CYCLOBENZAP RINE HCL 10MG TAB TAKE ONE TABLET BY MOUTH THREE TIMES DAILY NEEDED - DO NOT TAKE AT BEDTIME DUE TO UNTREATE D SEVERE SLEEP APNEA, MAY CAUSE SEVERE DROWSINE SS - DO NOT TAKE AT BEDTIME DUE TO UNTREATE D SEVERE SLEEP APNEA, MAY CAUSE SEVERE DROWSINE SS ORAL 01/12/2025 [id number] SANCHEZYRN ARCHIBALD 2023 45 [place] EMPAGLIFLOZ IN 10MG TAB TAKE ONE TABLET BY MOUTH ONCE DAILY ORAL DISCONT INUED (EDIT) 04/11/2024 [id number] SANCHEZYRN ARCHIBALD 2023 90 [place] EMPAGLIFLOZ IN 25MG TAB TAKE ONE TABLET BY MOUTH ONCE DAILY ORAL ACTIVE 02/23/2025 [id number] SANCHEZYRN ARCHIBALD 2023 90 [place] FLUTICASONE PROPIONATE 50MCG/SPRAY SOLN,NASAL, 16GM INSTILL 2 SPRAYS INTO EACH NOSTRIL ONCE DAILY FOR NASAL IRRITATI ON/INFLA MMATION NASAL ACTIVE 02/06/2025 [id number] HAM BERGMAN R 2023 3 [facility] IBUPROFEN 400MG TAB TAKE ONE TABLET BY MOUTH THREE TIMES DAILY NEEDED ORAL ACTIVE [place] IBUPROFEN 600MG TAB TAKE ONE TABLET BY MOUTH THREE TIMES DAILY NEEDED FOR PAIN TAKE WITH FOOD ORAL 04/03/2024 [id number] 4 Pamela CASE A 2023 270 [place] LIDOCAINE 5% PATCH APPLY 1 PATCH TOPICALL Y ONCE DAILY NEEDED FOR NERVE PAIN (LEAVE PATCH ON FOR 12 HOURS, THEN REMOVE PATCH) TOPICA L DISCONT INUED BY PROVIDE R 02/03/2024 [id number] 4 Pamela CASE A 2023 30 [place] LIDOCAINE 5% PATCH APPLY 3 PATCH 5% TOPICALL Y ONCE DAILY NEEDED DIRECTED - MAY APPLY 3 PATCHES FOR 12 HOURS, THEN REMOVE ALL PATCHES FOR 12 HOURS TOPICA L 01/12/2025 [id number] YRN SANCHEZ 2023 90 [place] LORATADINE 10MG TAB TAKE ONE TABLET BY MOUTH ONCE DAILY FOR SNEEZING ORAL ACTIVE 02/06/2025 [id number] HAM BERGMANAdrianne Austin 2023 90 [facility] PREDNISONE 20MG TAB TAKE TWO TABLETS BY MOUTH ONCE DAILY FOR 5 DAYS, AND TAKE ONE TABLET ONCE DAILY FOR 5 DAYS ORAL 02/11/2024 [id number] YRN SANCHEZ 2023 15 [place] SEMAGLUTIDE 0.25MG/0.37 5ML INJ,SOLN,PE N,3ML INJECT 0.25MG SUBCUTAN EOUSLY ONCE A WEEK FOR TYPE 2 DIABETES MELLITUS SUBCUT ANEOUS ACTIVE 02/23/2025 [id number] 4 YRN SANCHEZ 2023 1 [place] SILDENAFIL CITRATE 50MG TAB TAKE ONE TABLET BY MOUTH ONCE DAILY FOR ERECTILE DYSFUNCT ION TAKE 1 HOUR PRIOR TO SEXUAL ACTIVITY ORAL 07/26/2024 [id number] JOCE BEARD 2022 6 [place] TRAZODONE HCL 100MG TAB TAKE ONE TABLET BY MOUTH AT BEDTIME NEEDED FOR INSOMNIA ASSOCIAT ED WITH DEPRESSI ON ORAL ACTIVE 09/10/2025 [id number] 5 Pamela CASE 2023 30 [place] TRAZODONE HCL 100MG TAB TAKE ONE TABLET BY MOUTH AT BEDTIME NEEDED ORAL 07/26/2024 [id number] JOCE BEARD S 2022 90 [facility] Allergies, Adverse Reactions, Alerts Combined list of allergies from Department of Defense and Veterans Affairs facilities. It does not include entries that were removed or entered in error. Substance Category Reaction Severity Reaction type Status Date Reported Comments Source TREE NUTS Propensity to adverse reactions to food (finding) Airway constriction active 5 [facility] Immunizations Combined list of available immunizations from the Department of Defense and Veterans Affairs facilities. 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 Status Comments Source PNEUMOCOCCAL CONJUGATE PCV20, POLYSACCHARID E [id number] CONJUGATE, ADJUVANT, PF 2022 TALA OROZCO LEFT DELTO ID [id number] 216 complet ed [place] COVID-19 (MODERNA), MRNA, LNP-S, PF, 100 MCG OR 50 MCG DOSE 3 2020 207 complet ed MOD; [id number]; 2 [place] INFLUENZA, INJECTABLE, QUADRIVALENT, PRESERVATIVE FREE 2020 150 complet ed [place] PNEUMOCOCCAL POLYSACCHARID E PPV23 2020 33 complet ed [place] COVID-19 (PFIZER), MRNA, LNP-S, PF, 30 MCG/0.3 ML DOSE 2 2020 208 complet ed [facility] COVID-19 (PFIZER), MRNA, LNP-S, PF, 30 MCG/0.3 ML DOSE 1 2020 208 complet ed [facility] TD (ADULT), 2 LF TETANUS TOXOID, PRESERVATIVE FREE, ADSORBED 2018 09 complet ed Site: Left Deltoid [place] TD(ADULT) UNSPECIFIED FORMULATION 2018 139 complet ed vewteran reports had at 07-22-19 PCP visit [facility] Results Combined list of recent chemistry, hematology and other laboratory results from Department of Defense and Veterans Affairs, ranging from 15 months to all on record, depending upon the facility. Order Name Results Value Reference Range Date Interpretation Specimen Comments Source ALLERGY PROFILE, REGION 1 RESPIRATO RY IGE [UNITS/VOL UME] IN SERUM OR PLASMA SEE NOTE 02/05 Specimen Type: SERUM Comment: DERMATOPHAG OIDES PTERONYSSIN US (D1) IGE DERMATOPHAG OIDES PTERONYSSIN US (D1) IGE KU/L 1.35 H <0.10 KU/L 1.35 H <0.10 [facility]VENTION[facility] L CLASS 2 H 0 CONVENTIONA L CLASS 2 H 0 DERMATOPHAG OIDES FARINAE (D2) IGE DERMATOPHAG OIDES FARINAE (D2) IGE KU/L 1.37 H <0.10 KU/L 1.37 H <0.10 [facility]VENTIONA L CLASS 2 H 0 CONVENTIONA L CLASS 2 H 0 CAT DANDER (E1) [...] IGE KU/L <0.10 <0.10 KU/L <0.10 <0.10 CONVENTIONA L CLASS 0 0 CONVENTIONA L CLASS 0 0 BERMUDA GRASS (G2) IGE BERMUDA GRASS (G2) IGE KU/L <0.10 <0.10 KU/L <0.10 <0.10 CONVENTIONA L CLASS 0 0 CONVENTIONA L CLASS 0 0 KACEY GRASS (G6) IGE KACEY GRASS (G6) IGE KU/L <0.10 <0.10 KU/L <0.10 <0.10 CONVENTIONA L CLASS 0 0 CONVENTIONA L CLASS 0 0 COCKROACH (I6) IGE COCKROACH (I6) IGE KU/L <0.10 <0.10 KU/L <0.10 <0.10 CONVENTIONA L CLASS 0 0 CONVENTIONA L CLASS 0 0 PENICILLIUM NOTATUM (M1) IGE PENICILLIUM NOTATUM (M1) IGE KU/L <0.10 <0.10 KU/L <0.10 <0.10 CONVENTIONA L CLASS 0 0 CONVENTIONA L CLASS 0 0 CLADOSPORIU M HERBARUM (M2) IGE CLADOSPORIU M HERBARUM (M2) IGE KU/L <0.10 <0.10 KU/L <0.10 <0.10 CONVENTIONA L CLASS 0 0 CONVENTIONA L CLASS 0 0 ASPERGILLUS FUMIGATUS (M3) IGE ASPERGILLUS FUMIGATUS (M3) IGE KU/L <0.10 <0.10 KU/L <0.10 <0.10 CONVENTIONA L CLASS 0 0 CONVENTIONA L CLASS 0 0 ALTERNARIA ALTERNATA (M6) IGE ALTERNARIA ALTERNATA (M6) IGE KU/L <0.10 <0.10 KU/L <0.10 <0.10 CONVENTIONA L CLASS 0 0 CONVENTIONA L CLASS 0 0 MAPLE (BOX ELDER) (T1) IGE MAPLE (BOX ELDER) (T1) IGE KU/L <0.10 <0.10 KU/L <0.10 <0.10 CONVENTIONA L CLASS 0 0 CONVENTIONA L CLASS 0 0 BIRCH (T3) IGE BIRCH (T3) IGE KU/L <0.10 <0.10 KU/L <0.10 <0.10 CONVENTIONA L CLASS 0 0 CONVENTIONA L CLASS 0 0 [place] (T6) IGE [place] (T6) IGE KU/L <0.10 <0.10 KU/L <0.10 <0.10 CONVENTIONA L CLASS 0 0 CONVENTIONA L CLASS 0 0 [place]AK (T7) IGE OAK (T7) IGE KU/L <0.10 <0.10 KU/L <0.10 <0.10 CONVENTIONA L CLASS 0 0 CONVENTIONA L CLASS 0 0 ELM (T8) IGE ELM (T8) IGE KU/L <0.10 <0.10 KU/L <0.10 <0.10 CONVENTIONA L CLASS 0 0 CONVENTIONA L CLASS 0 0 [place] (T10) IGE [place] (T10) IGE KU/L <0.10 <0.10 KU/L <0.10 <0.10 CONVENTIONA L CLASS 0 0 CONVENTIONA L CLASS 0 0 [place] (T11) IGE [place] (T11) IGE KU/L <0.10 <0.10 KU/L <0.10 <0.10 CONVENTIONA L CLASS 0 0 CONVENTIONA L CLASS 0 0 [place] (T14) IGE [place] (T14) IGE KU/L <0.10 <0.10 KU/L <0.10 <0.10 CONVENTIONA L CLASS 0 0 CONVENTIONA L CLASS 0 0 WHITE HERMILO (T15) IGE WHITE HERMILO (T15) IGE KU/L <0.10 <0.10 KU/L <0.10 <0.10 CONVENTIONA L CLASS 0 0 CONVENTIONA L CLASS 0 0 WHITE MULBERRY (T70) IGE WHITE MULBERRY (T70) IGE KU/L <0.10 <0.10 KU/L <0.10 <0.10 CONVENTIONA L CLASS 0 0 CONVENTIONA L CLASS 0 0 COMMON RAGWEED (SHORT) (W1) IGE COMMON RAGWEED (SHORT) (W1) IGE KU/L 0.12 H <0.10 KU/L 0.12 H <0.10 CONVENTIONA L CLASS 0/1 H 0 CONVENTIONA L CLASS 0/1 H 0 MUGWORT (W6) IGE MUGWORT (W6) IGE KU/L <0.10 <0.10 KU/L <0.1 0 <0.10 CONVENTIONA L CLASS 0 0 CONVENTIONA L CLASS 0 0 ROUGH PIGWEED (W14) IGE ROUGH PIGWEED (W14) IGE KU/L <0.10 <0.10 KU/L <0.10 <0.10 CONVENTIONA L CLASS 0 0 CONVENTIONA L CLASS 0 0 SHEEP SORREL (W18) IGE SHEEP SORREL (W18) IGE KU/L <0.10 <0.10 KU/L <0.10 <0.10 CONVENTIONA L CLASS 0 0 CONVENTIONA L CLASS 0 0 IMMUNOGLOBU FERNANDO E 28 kU/L <=114 IMMUNOGLOBU FERNANDO E 28 kU/L <=114 INTERPRETAT ION INTERPRETAT ION SPECIFIC LEVEL OF ALLERGEN SPECIFIC LEVEL OF ALLERGEN IgE CLASS kU/L SPECIFIC IgE ANTIBODY IgE CLASS kU/L SPECIFIC IgE ANTIBODY --------- --------- --------- --------- 0 <0.10 Absent/Unde tectable 0 <0.10 Absent/Unde tectable 0/1 0.10-0.34 Very Low Level 0/1 0.10-0.34 [...] of allergen results of 0.10-0.34 kU/L are undetermine d and intended for 0.10-0.34 kU/L are undetermine d and intended for specialist use. specialist use. Allergens denoted with a include results using Allergens denoted with a include results using one or more analyte specific reagents. In those one or more analyte specific reagents. In those cases, the test was developed and its analytical cases, the test was developed and its analytical performance characteris tics have been determined performance characteris tics have been determined by [email or web address] . It has not been cleared or by [email or web address] . It has not been cleared or approved by the U.S. Food and Drug Administrat ion. approved by the U.S. Food and Drug Administrat ion. The FDA has determined that such clearance or The FDA has determined that such clearance or approval is not necessary. This assay has been approval is not necessary. This assay has been validated pursuant to the CLIA regulations and is validated pursuant to the CLIA regulations and is used for clinical purposes. used for clinical purposes. Test Performed by [facility], Test Performed by [facility], [facility], [facility], [address] [place] [address] [place] [address] Jaime Krueger M.D., Ph.D., Director of Laboratorie s Jaime Krueger M.D., Ph.D., Director of Laboratorie s , CLIA [id number] , CLIA [id number] REFERENCE RANGE: <0.10 kU/L REFERENCE RANGE: <0.10 kU/L REFERENCE RANGE: <0.10 kU/L REFERENCE RANGE: <0.10 kU/L Component testing for samples with positive extract results may help to rule out cross-react ivity and confirm that allergy is present. The more components a patient is sensitized to, the higher the likelihood of a reaction when exposed to cats. REFERENCE RANGE: <0.10 kU/L REFERENCE RANGE: <0.10 kU/L REFERENCE RANGE: <0.10 kU/L REFERENCE RANGE: <0.10 kU/L REFERENCE RANGE: <0.10 kU/L REFERENCE RANGE: <0.10 kU/L Component testing for samples with positive extract results may help to rule out cross-react ivity and confirm that allergy is present. The more components a patient is sensitized to, the higher the likelihood of a reaction when exposed to dogs. Sensitizati on to Can f 5 only may indicate that the patient can tolerate female dogs. TEST PERFORMED AT: , Ordering Provider: PREET BERGMAN Report Released Date/Time: Feb 06, 2024 08:52 AM Reporting Lab: [facility] [address] [address] Performing Lab: [facility] [address] LIPID PANEL FASTING CHOLESTERO L [MASS/VOLU ME] IN SERUM OR PLASMA 279 mg/dL 02/05 H Specimen Type: SERUM No comment entered. Ordering Provider: REILLY SANCHEZ Report Released Date/Time: Jan 16, 2024 09:22 AM Reporting Lab: [address] [address] Performing Lab: [address] [address] [place] LIPID PANEL FASTING TRIGLYCERI DE [MASS/VOLU ME] IN SERUM OR PLASMA 351 mg/dL 0 - 150 02/05 H Specimen Type: SERUM No comment entered. Ordering Provider: REILLY SANCHEZ Report Released Date/Time: Jan 16, 2024 09:22 AM Reporting Lab: [facility] [address] [address] Performing Lab: [address] [address] [place] LIPID PANEL FASTING CHOLESTERO L IN LDL [MASS/VOLU ME] IN SERUM OR PLASMA BY CALCULATIO N Reflex to dLDLmg/ dL 0 - 129 02/05 Specimen Type: SERUM No comment entered. Ordering Provider: REILLY SANCHEZ Report Released Date/Time: Jan 16, 2024 09:22 AM Reporting Lab: [facility] [address] [address] Performing Lab: [facility] [address] [address] [place] LIPID PANEL FASTING CHOLESTERO L.TOTAL/CH OLESTEROL IN HDL [MASS RATIO] IN SERUM OR PLASMA 6.8 02/05 Specimen Type: SERUM No comment entered. Ordering Provider: REILLY SANCHEZ Report Released Date/Time: Jan 16, 2024 09:22 AM Reporting Lab: [facility] [address] [address] Performing Lab: [facility] [address] [place] LIPID PANEL FASTING CHOLESTERO L IN HDL [MASS/VOLU ME] IN SERUM OR PLASMA 41 mg/dL 40 - 60 02/05 Specimen Type: SERUM No comment entered. Ordering Provider: REILLY SANCHEZ Report Released Date/Time: Jan 16, 2024 09:22 AM Reporting Lab: [facility] [address] Performing Lab: [facility] [address] [place] LIPID PANEL FASTING CHOLESTERO L IN LDL [MASS/VOLU ME] IN SERUM OR PLASMA BY DIRECT ASSAY 162 mg/dL 02/05 H Specimen Type: SERUM No comment entered. Ordering Provider: REILLY SANCHEZ Report Released Date/Time: Jan 16, 2024 09:22 AM Reporting Lab: [facility] [address] Performing Lab: [facility] [address] [place] BASIC METABOLIC PANEL (fasting) UREA NITROGEN [MASS/VOLU ME] IN SERUM OR PLASMA 12 mg/dL 7 - 25 02/05 Specimen Type: SERUM No comment entered. Ordering Provider: REILLY SANCHEZ Report Released Date/Time: Jan 16, 2024 09:22 AM Reporting Lab: [facility] [address] [address] Performing Lab: [facility] [address] [address] [place] BASIC METABOLIC PANEL (fasting) GLUCOSE [MASS/VOLU ME] IN SERUM OR PLASMA 176 mg/dL 65 - 100 02/05 H Specimen Type: SERUM No comment entered. Ordering Provider: REILLY SANCHEZ Report Released Date/Time: Jan 16, 2024 09:22 AM Reporting Lab: [facility] [address] [address] Performing Lab: [address] [address] [place] BASIC METABOLIC PANEL (fasting) SODIUM [MOLES/VOL UME] IN SERUM OR PLASMA 138 mmol/L 135 - 145 02/05 Specimen Type: SERUM No comment entered. Ordering Provider: REILLY SANCHEZ Report Released Date/Time: Jan 16, 2024 09:22 AM Reporting Lab: [facility] [address] [address] Performing Lab: [address] [address] [place] BASIC METABOLIC PANEL (fasting) POTASSIUM [MOLES/VOL UME] IN SERUM OR PLASMA 4.0 mmol/L 3.5 - 5.0 02/05 Specimen Type: SERUM No comment entered. Ordering Provider: REILLY SANCHEZ Report Released Date/Time: Jan 16, 2024 09:22 AM Reporting Lab: [facility] [address] [address] Performing Lab: [address] [address] [place] BASIC METABOLIC PANEL (fasting) CHLORIDE [MOLES/VOL UME] IN SERUM OR PLASMA 101 mmol/L 100 - 110 02/05 Specimen Type: SERUM No comment entered. Ordering Provider: REILLY SANCHEZ Report Released Date/Time: Jan 16, 2024 09:22 AM Reporting Lab: [facility] [address] [address] Performing Lab: [address] [address] [place] BASIC METABOLIC PANEL (fasting) CARBON DIOXIDE, TOTAL [MOLES/VOL UME] IN SERUM OR PLASMA 23 meq/L 20 - 30 02/05 Specimen Type: SERUM No comment entered. Ordering Provider: REILLY SANCHEZ Report Released Date/Time: Jan 16, 2024 09:22 AM Reporting Lab: [address] [address] Performing Lab: [address] [address] [place] BASIC METABOLIC PANEL (fasting) CREATININE [MASS/VOLU ME] IN SERUM OR PLASMA 0.77 mg/dL 0.50 - 1.40 02/05 Specimen Type: SERUM No comment entered. Ordering Provider: REILLY SANCHEZ Report Released Date/Time: Jan 16, 2024 09:22 AM Reporting Lab: [address] [address] Performing Lab: [address] [address] [place] BASIC METABOLIC PANEL (fasting) GLOMERULAR FILTRATION RATE/1.73 SQ M.PREDICTE D [VOLUME RATE/AREA] IN SERUM, PLASMA OR BLOOD BY CREATININE -BASED FORMULA (CKD-EPI 2020) >90mL/m in 60 02/05 Specimen Type: SERUM No comment entered. Ordering Provider: REILLY SANCHEZ Report Released Date/Time: Jan 16, 2024 09:22 AM Reporting Lab: [address] [address] Performing Lab: [address] [address] [place] LIPID PANEL FASTING CHOLESTERO L [MASS/VOLU ME] IN SERUM OR PLASMA 293 mg/dL 01/11 H Specimen Type: SERUM No comment entered. Ordering Provider: REILLY SANCHEZ Report Released Date/Time: Jan 12, 2024 08:39 AM Reporting Lab: [facility] [address] [address] Performing Lab: [address] [address] [place] LIPID PANEL FASTING TRIGLYCERI DE [MASS/VOLU ME] IN SERUM OR PLASMA 514 mg/dL 0 - 150 01/11 H Specimen Type: SERUM No comment entered. Ordering Provider: REILLY SANCHEZ Report Released Date/Time: Jan 12, 2024 08:39 AM Reporting Lab: [address] [address] Performing Lab: [facility] [address] [address] [place] LIPID PANEL FASTING CHOLESTERO L IN LDL [MASS/VOLU ME] IN SERUM OR PLASMA BY CALCULATIO N Reflex to dLDLmg/ dL 0 - 129 01/11 Specimen Type: SERUM No comment entered. Ordering Provider: REILLY SANCHEZ Report Released Date/Time: Jan 12, 2024 08:39 AM Reporting Lab: [facility] [address] [address] Performing Lab: [facility] [address] [address] [place] LIPID PANEL FASTING CHOLESTERO L.TOTAL/CH OLESTEROL IN HDL [MASS RATIO] IN SERUM OR PLASMA 7.5 01/11 Specimen Type: SERUM No comment entered. Ordering Provider: REILLY SANCHEZ Report Released Date/Time: Jan 12, 2024 08:39 AM Reporting Lab: [facility] [address] [address] Performing Lab: [facility] [address] [address] [place] LIPID PANEL FASTING CHOLESTERO L IN HDL [MASS/VOLU ME] IN SERUM OR PLASMA 39 mg/dL 40 - 60 01/11 L Specimen Type: SERUM No comment entered. Ordering Provider: SANCHEZ,VICTO ABI J Report Released Date/Time: Jan 12, 2024 08:39 AM Reporting Lab: [address] [address] Performing Lab: [address] [address] [place] LIPID PANEL FASTING CHOLESTERO L IN LDL [MASS/VOLU ME] IN SERUM OR PLASMA BY DIRECT ASSAY 136 mg/dL 01/11 H Specimen Type: SERUM No comment entered. Ordering Provider: REILLY SANCHEZ Report Released Date/Time: Jan 12, 2024 08:39 AM Reporting Lab: [address] [address] Performing Lab: [address] [address] [place] BASIC METABOLIC PANEL (fasting) UREA NITROGEN [MASS/VOLU ME] IN SERUM OR PLASMA 12 mg/dL 7 - 25 01/11 Specimen Type: SERUM No comment entered. Ordering Provider: REILLY SANCHEZ Report Released Date/Time: Jan 12, 2024 08:39 AM Reporting Lab: [address] [address] Performing Lab: [address] [address] [place] BASIC METABOLIC PANEL (fasting) GLUCOSE [MASS/VOLU ME] IN SERUM OR PLASMA 292 mg/dL 65 - 100 01/11 H Specimen Type: SERUM No comment entered. Ordering Provider: REILLY SANCHEZ Report Released Date/Time: Jan 12, 2024 08:39 AM Reporting Lab: [address] [address] Performing Lab: [address] [address] [place] BASIC METABOLIC PANEL (fasting) SODIUM [MOLES/VOL UME] IN SERUM OR PLASMA 136 mmol/L 135 - 145 01/11 Specimen Type: SERUM No comment entered. Ordering Provider: REILLY SANCHEZ ABI Luh Report Released Date/Time: Jan 12, 2024 08:39 AM Reporting Lab: [facility] [address] [address] Performing Lab: [facility] [address] [address] [place] BASIC METABOLIC PANEL (fasting) POTASSIUM [MOLES/VOL UME] IN SERUM OR PLASMA 3.6 mmol/L 3.5 - 5.0 01/11 Specimen Type: SERUM No comment entered. Ordering Provider: REILLY SANCHEZ Report Released Date/Time: Jan 12, 2024 08:39 AM Reporting Lab: [address] [address] Performing Lab: [address] [address] [place] BASIC METABOLIC PANEL (fasting) CHLORIDE [MOLES/VOL UME] IN SERUM OR PLASMA 97 mmol/L 100 - 110 01/11 L Specimen Type: SERUM No comment entered. Ordering Provider: REILLY SANCHEZ Report Released Date/Time: Jan 12, 2024 08:39 AM Reporting Lab: [address] [address] Performing Lab: [address] [address] [place] BASIC METABOLIC PANEL (fasting) CARBON DIOXIDE, TOTAL [MOLES/VOL UME] IN SERUM OR PLASMA 25 meq/L 20 - 30 01/11 Specimen Type: SERUM No comment entered. Ordering Provider: REILLY SANCHEZ Report Released Date/Time: Jan 12, 2024 08:39 AM Reporting Lab: [address] [address] Performing Lab: [address] [address] [place] BASIC METABOLIC PANEL (fasting) CREATININE [MASS/VOLU ME] IN SERUM OR PLASMA 0.85 mg/dL 0.50 - 1.40 01/11 Specimen Type: SERUM No comment entered. Ordering Provider: SANCHEZ,VICTO ABI J Report Released Date/Time: Jan 12, 2024 08:39 AM Reporting Lab: [facility] [address] [address] Performing Lab: [facility] [address] [address] [place] BASIC METABOLIC PANEL (fasting) GLOMERULAR FILTRATION RATE/1.73 SQ M.PREDICTE D [VOLUME RATE/AREA] IN SERUM, PLASMA OR BLOOD BY CREATININE -BASED FORMULA (CKD-EPI 2020) >90mL/m in 60 01/11 Specimen Type: SERUM No comment entered. Ordering Provider: REILLY SANCHEZ Report Released Date/Time: Jan 12, 2024 08:39 AM Reporting Lab: [facility] [address] [address] Performing Lab: [facility] [address] [address] [place] LIVER FUNCTION PROTEIN [MASS/VOLU ME] IN SERUM OR PLASMA 7.8 g/dL 6.0 - 8.3 01/11 Specimen Type: SERUM No comment entered. Ordering Provider: REILLY SANCHEZ Report Released Date/Time: Jan 12, 2024 08:39 AM Reporting Lab: [facility] [address] [address] Performing Lab: [facility] [address] [address] [place] LIVER FUNCTION ALBUMIN [MASS/VOLU ME] IN SERUM OR PLASMA 4.4 g/dL 3.5 - 5.0 01/11 Specimen Type: SERUM No comment entered. Ordering Provider: REILLY SANCHEZ Report Released Date/Time: Jan 12, 2024 08:39 AM Reporting Lab: [facility] [address] [address] Performing Lab: [facility] [address] [address] [place] LIVER FUNCTION ALKALINE PHOSPHATAS E [ENZYMATIC ACTIVITY/V OLUME] IN SERUM OR PLASMA 67 U/L 40 - 150 01/11 Specimen Type: SERUM No comment entered. Ordering Provider: REILLY SANCHEZ ABI Luh Report Released Date/Time: Jan 12, 2024 08:39 AM Reporting Lab: [address] [address] Performing Lab: [address] [address] [place] LIVER FUNCTION ASPARTATE AMINOTRANS FERASE [ENZYMATIC ACTIVITY/V OLUME] IN SERUM OR PLASMA 26 U/L 5 - 34 01/11 Specimen Type: SERUM No comment entered. Ordering Provider: REILLY SANCHEZ Report Released Date/Time: Jan 12, 2024 08:39 AM Reporting Lab: [address] [address] Performing Lab: [address] [address] [place] LIVER FUNCTION ALANINE AMINOTRANS FERASE [ENZYMATIC ACTIVITY/V OLUME] IN SERUM OR PLASMA 50 U/L 01/11 Specimen Type: SERUM No comment entered. Ordering Provider: REILLY SANCHEZ Report Released Date/Time: Jan 12, 2024 08:39 AM Reporting Lab: [address] [address] Performing Lab: [address] [address] [place] LIVER FUNCTION BILIRUBIN. TOTAL [MASS/VOLU ME] IN SERUM OR PLASMA 0.5 mg/dL 0.2 - 1.2 01/11 Specimen Type: SERUM No comment entered. Ordering Provider: REILLY SANCHEZ Report Released Date/Time: Jan 12, 2024 08:39 AM Reporting Lab: [address] [address] Performing Lab: [address] [address] [place] HEMOGLOBI N A1C PANEL HEMOGLOBIN A1C/HEMOGL OBIN.TOTAL IN BLOOD BY HPLC 12.3 4.0 - 5.6 01/11 H Specimen Type: BLOOD Comment: Values obtained from A1C measurement s can vary. For atypical A1C assays, a reported value of 7.0 could actually be between 6.72 and 7.28 if measured by a reference method. A reported value of 9.0 could actually be between 8.73 and 9.27. Ref: http://www. ngsp.org/[place] Pdata.asp Ordering Provider: REILLY SANCHEZ ABI Luh Report Released Date/Time: Jan 12, 2024 08:39 AM Reporting Lab: [facility] [address] [address] Performing Lab: [address] [address] [place] TSH THYROTROPI N [UNITS/VOL UME] IN SERUM OR PLASMA 1.97 u[IU]/m L 0.35 - 5.00 01/11 Specimen Type: SERUM No comment entered. Ordering Provider: REILLY SANCHEZ ABI Luh Report Released Date/Time: Jan 12, 2024 08:39 AM Reporting Lab: [facility] [address] [address] Performing Lab: [address] [address] [place] CALCIUM CALCIUM [MASS/VOLU ME] IN SERUM OR PLASMA 9.4 mg/dL 8.5 - 10.2 01/11 Specimen Type: SERUM No comment entered. Ordering Provider: REILLY SANCHEZ Report Released Date/Time: Jan 12, 2024 08:39 AM Reporting Lab: [facility] [address] [address] Performing Lab: [facility] [address] [address] [place] URIC ACID URATE [MASS/VOLU ME] IN SERUM OR PLASMA 3.7 mg/dL 3.5 - 7.2 01/11 Specimen Type: SERUM No comment entered. Ordering Provider: REILLY SANCHEZ ABI Luh Report Released Date/Time: Jan 12, 2024 08:39 AM Reporting Lab: [facility] [address] [address] Performing Lab: [facility] [address] [address] TOMAS FIERRO Vital Signs Combined list of inpatient and outpatient Vital Signs from Department of Defense and Veterans Affairs, ranging from 12 months to all on record, depending upon the facility. Vital Sign Value Date Comments Source SYSTOLIC BLOOD PRESSURE 120 05/06/20 24 08:42:04 [facility] DIASTOLIC BLOOD PRESSURE 80 024 08:42:04 [facility] PULSE OXIMETRY 97 05/06/2024 08:42:04 [facility] PAIN 3 05/06/2024 08:42:04 [facility] TEMPERATURE 97.3 05/06/2024 08:42:04 [facility] PULSE 74 05/06/2024 08:42:04 [facility] RESPIRATION 18 05/06/2024 08:42:04 [facility] SYSTOLIC BLOOD PRESSURE 125 02/23/20 24 15:53:29 [facility] DIASTOLIC BLOOD PRESSURE 84 15:53:29 [place] PULSE OXIMETRY 96 02/23/2024 15:53:29 [facility] [place] WEIGHT 243 02/23/2024 15:53:29 [place] BMI 34 kg/m2 02/23/2024 15:53:29 [facility] PAIN 1 02/23/2024 15:53:29 [facility] TEMPERATURE 97.7 02/23/2024 15:53:29 [facility] PULSE 80 02/23/2024 15:53:29 [facility] RESPIRATION 17 02/23/2024 15:53:29 [facility] [place] SYSTOLIC BLOOD PRESSURE 130 02/06/20 24 08:27:49 [facility] DIASTOLIC BLOOD PRESSURE 80 024 08:27:49 [facility] PULSE OXIMETRY 97 02/06/2024 08:27:49 [facility] WEIGHT 240.8 02/06/2024 08:27:49 [facility] BMI 34 kg/m2 02/06/2024 08:27:49 [facility] PAIN 2 02/06/2024 08:27:49 [facility] TEMPERATURE 97.8 02/06/2024 08:27:49 [facility] PULSE 80 02/06/2024 08:27:49 [facility] RESPIRATION 16 02/06/2024 08:27:49 [facility] Encounters Combined list of: 1) Encounters from Department of Veterans Affairs facilities going backup to the last 18 months, not all VA inpatient encounters are included; 2) Encounters from the Department of Defense facilities going backup to 280 months. Location Location Details Encounter Type Encounter Number Reason For Visit Attending Provider ADM Date DC Date Status Disposition Source [facility] Outpatient Encounter [id number] 08/02 [facility] Outpatient Encounter [id number] 11/09 [facility] Outpatient Encounter [id number] 11/09 [facility] Outpatient [facility]counter [id number] 11/09 [facility] Outpatient Encounter [id number] 11/13 [facility] Out[facility] Encounter [id number] 12/27 [facility] Outpatient Encounter [id number] 12/27 [facility] Outpatient Encounter [id number] 12/27 [facility] Outpatient Encounter [id number] 12/28 [facility] Outpatient Encounter [id number] 12/28 [facility] Outpatient Encounter [id number] 12/31 [facility] Out[facility] Encounter [id number] 01/01 [facility] Outpatient Encounter [id number] 01/02 [facility] Outpatient Encounter [id number] 01/02 [facility] Outpatient Encounter [id number] 01/03 [facility] [place] OFF/OP EST FEBRUARY X REQ PHY/QHP [id number] Diagnos is: ICD-10- CM M54.2 Cervica lgia HAMILTON,ER IC K 01/03 [place] [facility] Outpatient Encounter [id number] 01/03 [facility] Outpatient Encounter [id number] 01/03 [facility] Outpatient Encounter [id number] 01/04 [facility] Outpatient Encounter [id number] 01/08 [facility] Out[facility] Encounter [id number] 01/10 [facility] Out[facility] Encounter [id number] 01/11 [facility] [facility] [id number] Diagnos is: ICD-10- CM M54.2 Cervica lgia DANIEL,SUSAN HAGEN J 01/11 [place] [facility] Outpatient Encounter [id number] 01/13 [facility] Out[facility] Encounter [id number] 01/14 [facility] Outpatient Encounter [id number] 01/14 [facility] Out[facility] Encounter [id number] 01/14 [facility] ACUPUNCT W/O STIMUL 15 MIN [id number] Diagnos is: ICD-10- CM M54.9 Dorsalg ia, unspeci fied GAUNYA,CHR ISTOPHER M 01/29 [facility] [place] 1 [id number] Diagnos is: ICD-10- CM E11.9 Type 2 diabete s mellitu s without complic ations SUZY DUNCAN H B 01/31 [facility] FIT SPECTACLES MULTIFOCAL [id number] Diagnos is: ICD-10- CM Z46.0 Encount er for fit/adj st of spectac les and contact lenses SUZY DUNCAN B 01/31 [facility] Outpatient Encounter [id number] 01/31 [facility] Outpatient Encounter [id number] 02/05 [facility] OFF/OP CONSLTJ NEW/EST HI 55 [id number] Diagnos is: ICD-10- CM J31.0 Chronic rhiniti s PIYUSH BERGMANDIAN FABIOLADEBBIE R 02/05 [facility] Out[facility] Encounter [id number] 02/07 [facility] ACUPUNCT W/O STIMUL ADDL 15M [id number] Diagnos is: ICD-10- CM M54.2 Cervica paul RIOS,[facility] ISTOPHER M 02/08 [facility] Outpatient Encounter [id number] 02/12 [facility] Outpatient Encounter [id number] 02/15 [facility] OFFICE O/[place] HI 40 MIN [id number] Diagnos is: ICD-10- CM S06.0X0 A Concuss ion without loss of conscio usness, initial encount er SANCHEZ,VICT ORIA J 02/22 [facility] Outpatient Encounter [id number] 02/25 [facility] (631GE) QNHP OL DIG ASSMT&MGMT 5-10 [id number] Diagnos is: ICD-10- CM E11.9 Type 2 diabete s mellitu s without complic ations MACY DE LA O 02/26 [facility] (631GE[facility] Outpatient Encounter [id number] 02/27 [facility] Out[facility] Encounter [id number] 03/25 [facility] Outpatient Encounter [id number] KACI HERRERA 03/26 [facility] Outpatient Encounter [id number] KACI HERRERA 03/26 [facility] Out[facility] Encounter [id number] 04/08 [facility] Out[facility] Encounter [id number] 04/12 [facility] Out[facility] Encounter [id number] 04/15 [facility] Out[facility] Encounter [id number] 04/23 [facility] Out[facility] Encounter [id number] 04/24 [facility] ACUPUNCT W/O STIMUL ADDL 15M [id number] Diagnos is: ICD-10- CM F43.10 Post-tr aumatic stress disorde r, unspeci gema RIOS,CHR ISTOPHER M 05/03 [facility] [place] QNHP OL DIG ASSMT&MGMT 5-10 [id number] Diagnos is: ICD-10- CM Z04.89 Encount er for examina tion and observa tion for oth reasons JOSIE,IONA IE 05/03 [place] [facility] OFFICE O/P EST LOW 20 MIN [id number] Diagnos is: ICD-10- CM J30.9 Allergi c rhiniti s, unspeci fiBETSY Rebollar 05/06 [facility] Out[facility] Encounter [id number] 05/07 [facility] Outpatient Encounter [id number] 05/09 [facility] Outpatient Encounter [id number] HERRERAKACI Ngo 05/09 [facility] Out[facility] Encounter [id number] 05/17 [facility] ACUPUNCT W/O STIMUL ADDL 15M [id number] Diagnos is: ICD-10- CM M54.9 Dorsalg ia, unspeci fied GAUNYA,CHR ISTOPHER M 06/21 [facility] Out[facility] Encounter [id number] 07/15 [facility] INFRARED THERAPY [id number] Diagnos is: ICD-10- CM M54.9 Dorsalg ia, unspeci fied GAUNYA,CHR ISTOPHER M 07/26 [facility] INFRARED THERAPY [id number] Diagnos is: ICD-10- CM M54.9 Dorsalg ia, unspeci fied GAUNYA,CHR ISTOPHER M 08/02 [facility] INFRARED THERAPY [id number] Diagnos is: ICD-10- CM M54.9 Dorsalg ia, unspeci fied GAUNYA,CHR ISTOPHER M 08/12 [facility] Outpatient Encounter [id number] 08/13 [facility] Outpatient Encounter [id number] 08/13 [facility] Outpatient Encounter [id number] 1.08/29 [facility] Outpatient Encounter [id number] 1.09/04 [facility] Outpatient Encounter [id number] 1.09/05 [facility] QNHP OL DIG ASSMT&MGMT 5-10 [id number] 1. Diagnos is: ICD-10- CM N52.9 Male erectil e dysfunc tion, unspeci fied FRANKI WARD A 09/06 [facility] Out[facility] Encounter [id number] 1.09/09 [facility] [place] Outpatient Encounter [id number] 09/09 [place] [facility] Outpatient Encounter [id number] Luh MARADIAGA ILL M 01/08 [facility] OFFICE O/P EST MOD 30 MIN [id number] Diagnos is: ICD-10- CM E11.9 Type 2 diabete s mellitu s without complic ations SUZY DUNCAN 01/27 [facility] Outpatient Encounter [id number] 01/29 [facility] Outpatient Encounter [id number] [facility] [place] Social History Combined list of available smoking, tobacco, and other social history from Department of Defense and Veterans Affairs facilities. Social History Type Response Date Comment Sourc e Tobacco smoking status NHIS [facility] History of tobacco use VA-TOBACCO NEVER USED 11/16/2022 [facility] History of tobacco use SC-TOBACCO QUIT 5 TO < 15 YRS 10/06/2021 [place] [place] History of tobacco use VA-TOBACCO NEVER USED 09/16/[address] [facility] History of tobacco use VA-TOBACCO NEVER USED 06/26/2019 [place] [place] Plan of Care List of future care activities from Department of Veterans Affairs facilities. Additional future care activities may be listed in the Assessment and Plan section. Date/Time Care Activity Care Activity Detail Facili ty 02/28/2025 AMBULATORY - PSYCHIATRY AMBULATORY - PS[facility]
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
--- OUTSIDE RECORDS SUMMARY | 2025-01-29 17:59 | XMS_ITS ---
Author Name [facility] [place] Organization [facility] [place] [facility] [place] Address [address] [place] [address] Care Team Providers Care Bale Sewer Name Role Phone ROXI CASE Primary Care [...] Relationship to Policy Moy OFFICE OF REGIONAL DENTAL PATIENT COORDINATOR NO-FAULT INSURANCE NO FAULT Dec 28, 2023 NO FAULT [id number] [phone] Tasia ARANA PATIENT OFFICE OF REGIONAL DENTAL PATIENT COORDINATOR MS NO-FAULT INSURANCE NO FAULT Dec 28, 2023 NO FAULT [id number] [phone] Tasia ARANAIN PATIENT Selected Encounter This section includes the information on record at [place] for the Encounter. Date/Time Encounter Type Encounter Description Reason Provider Source Jan 27, 2025 03:30 PM OFFICE O/P EST MOD 30 MIN OPTOMETRY ICD-10-CM E11.9 Type 2 diabetes mellitus without complications TRINIDAD DUNCAN IHReinaldo Encounter Template Text not used by [place] Assessments - Encounter Diagnoses This section includes the primary and secondary diagnoses documented for the Encounter. Date/Time Primary/Secondary Diagnosis Diagnosis Name Provider Source Jan 27, 2025 04:35 PM PRIMARY Type 2 diabetes mellitus without complications TRINIDAD DUNCAN [place] [facility] [place] [facility] Jan 27, 2025 04:35 PM SECONDARY Benign neoplasm of right choroid TRINIDAD DUNCAN [place] [facility] [place] [facility] Jan 27, 2025 04:35 PM SECONDARY Dry eye syndrome of bilateral lacrimal glands TRINIDAD DUNCAN [place] [facility] [place] [facility] Jan 27, 2025 04:35 PM SECONDARY Myopia, bilateral RENNY DUNCANAH [place] [facility] [place] [facility] Plan of Treatment: Future Appointments (+ 6 months) and Future Tests (+/- 45 days) The Plan of Treatment section includes future care activities for the patient from all [place] [facility]. This section includes future appointments and future orders which are active, pending or scheduled. Future Appointments This section includes appointments that were scheduled to occur 6 months from the date of the Encounter, up to a maximum of 20 appointments. The data comes from all [place] treatment facilities. Appointment Date/Time Appointment Type Appointme nt Facility Name February 28, 2025 03:00 PM AMBULATORY - PSYCHIATRY [facility] Active, Pending, and Scheduled Orders This section includes a listing of several types of active, pending, and scheduled orders, including clinic medications orders, diagnostic test orders, procedure orders and consult orders; where the start date of the order is 45 days before the date of the Encounter or 45 days after the date of theEncounter. The data comes from all [place] treatment [facility]. Test Date/Time Test Type Test Details Facility Name Jan 08, 2025 03:24 PM Consult Order BHIP PSYCH IATRIC MEDICATION/SOPC OUTPT [employer] [facility] Jan 29, 2025 12:52 PM Consult Order EYEGLASS R EQUEST - 4 SIGHT [employer] [facility] [place] [facility] [place] [facility] Jan 29, 2025 12:52 PM Consult Order EYEGLASS R EQUEST - 4 SIGHT Cons [employer] [facility] [place] [facility] [place] [facility] Encounter Notes: All associated encounter notes This section contains the clinical notes associated to the Encounter. Date/Time Encounter Note(s) Provider Source Jan 27, 2025 04:35 PM ADDENDUM: LOCAL TITLE: Addendum STANDARD TITLE: ADDENDUM DATE OF NOTE: JAN 27, 2025@16:35:15 ENTRY DATE: JAN 27, 2025@16:35:16 AUTHOR: TRINIDAD DUNCAN EXP COSIGNER: URGENCY: STATUS: COMPLETED please assist in ordering duplicate glasses: RX INFORMATION OD -5.50 -0.75 X40 Add:0.00 Pzm:0.00 Dir: Prz2:0.00 Dir2: OS -6.00 -0.75 X170 Add:0.00 Pzm:0.00 Dir: Prz2:0.00 Dir2: FITTING INFORMATION FPD: NPD: Piatt:R:32.5 L:33.5 SEG HT:R: L: Tint:None Shade:None [place] Billable Items FRAME: US59 BLACK [id number] Right Lens: 1.67 SINGLE VISION 1.67 HIGH INDEX Left Lens: 1.67 SINGLE VISION 1.67 HIGH INDEX KLEAR ANTI-REFLECTIVE COATING RX INFORMATION OD -7.25 -0.75 X40 Add:0.00 Pzm:0.00 Dir: Prz2:0.00 Dir2: OS -7.75 -0.75 X170 Add:0.00 Pzm:0.00 Dir: Prz2:0.00 Dir2: FITTING INFORMATION FPD: NPD: Piatt:R:32.5 L:33.5 SEG HT:R: L: Tint:None Shade:None [place] Billable Items FRAME: US59 BLACK [place] [id number] Right Lens: 1.67 SINGLE VISION 1.67 HIGH INDEX Left Lens: 1.67 SINGLE VISION 1.67 HIGH INDEX KLEAR ANTI-REFLECTIVE COATING /dorcas/ TRINIDAD DUNCAN OD Power Reactor Operator Signed: 01/27/2025 16:45 Receipt Acknowledged By: 01/29/2025 12:48 /dorcas/ CASS MCCOLLUM OPTOMETRY TECH --- Original Document --- 01/27/25 OPTOMETRY NOTE: 44 WHITE MALE NOT OR Last eye exam: 01/31/22 Reason for Visit/CC: patient here for a comprehensive eye exam. 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 Type II diabetes without retinopathy or macular edema OU 2. Dry eye OU 3. Ptosis OS>OD 4. choroidal nevus OD 5. h/o mTBI 6. myopia OU, regular astigmatism OU, presbyopia OU 7. Contact lens wear (-) Pain: (-) MARTINO: (-) Diplopia: (-) Flashes: (-) Floaters: (-) Amaurosis Fugax/Tia's: (-) Eye Injury: (-) Eye Surgery: (-) TBI (-) FOHx: MHx: Code Description E55.9 Vitamin D Deficiency ([facility] [id number]) R80.9 Microalbuminuria ([facility] 259807599) M54.2 Neck pain ([facility] 57430296) M54.9 Back pain ([facility] 755151256) S06.0X0A Concussion with no loss of consciousness ([facility] 15111792) N52.9 Erectile Dysfunction ([facility] 116595660) B37.42 Candidal balanitis ([facility] 67327429) F43.10 Posttraumatic stress disorder ([facility] 44022641) G47.33 Obstructive sleep apnea syndrome ([facility] 67557778) R16.1 Splenomegaly ([facility] 57605893) Z86.16 History of SARS-CoV-2 ([facility] [id number]) F90.2 Attention deficit hyperactivity disorder ([facility] 158984684) E11.9 Diabetes mellitus ([facility] 79356900) F51.05 Insomnia ([facility] [id number]) D71. Chronic granulomatous disease ([facility] [id number]) E78.5 HLD - Hyperlipidemia ([facility] 15739967) E66.8 Obesity ([facility] 509814475) Other: SYSTEMIC MEDICATIONS/OCULAR MEDICATIONS: Active and Recently Outpatient Medications (excluding Supplies): Active Outpatient Medications Status 1) CARBOXYMETHYLCELLULOSE NA 1% OPH GEL APPLY 1 DROP INTO EACH ACTIVE EYE TWICE DAILY NEEDED Indication: FOR DRY EYE 2) EMPAGLIFLOZIN 25MG TAB TAKE ONE TABLET BY MOUTH ONCE DAILY ACTIVE Indication: FOR TYPE 2 DIABETES MELLITUS 3) FLUTICASONE PROP 50MCG 120D NASAL INHL INSTILL 2 SPRAYS INTO ACTIVE EACH NOSTRIL ONCE DAILY Indication: FOR NASAL IRRITATION/INFLAMMATION 4) LORATADINE 10MG TAB TAKE ONE TABLET BY MOUTH ONCE DAILY ACTIVE Indication: FOR SNEEZING 5) SEMAGLUTIDE 0.25MG/0.375ML INJ PEN 3ML INJECT 0.25MG ACTIVE SUBCUTANEOUSLY ONCE A WEEK Indication: FOR TYPE 2 DIABETES MELLITUS 6) TRAZODONE HCL 100MG TAB TAKE ONE TABLET BY MOUTH AT BEDTIME ACTIVE NEEDED Indication: FOR INSOMNIA ASSOCIATED WITH DEPRESSION Inactive Outpatient Medications Status 1) CYCLOBENZAPRINE HCL 10MG TAB TAKE ONE TABLET BY MOUTH THREE TIMES DAILY NEEDED - DO NOT TAKE AT BEDTIME DUE TO UNTREATED SEVERE SLEEP APNEA, MAY CAUSE SEVERE DROWSINESS Indication: FOR MUSCLE SPASM 2) LIDOCAINE 5% PATCH APPLY 3 PATCH 5% TOPICALLY ONCE DAILY NEEDED DIRECTED - MAY APPLY 3 PATCHES FOR 12 HOURS, THEN REMOVE ALL PATCHES FOR 12 HOURS Indication: FOR NERVE PAIN Active Non-VA Medications Status 1) Non-VA IBUPROFEN 400MG TAB 400MG BY MOUTH THREE TIMES DAILY ACTIVE NEEDED 9 Total Medications ALLERGIES: TREE NUTS LAST BP: 120/80 (05/06/2024 08:42) PERTINENT LABS: HEMOGLOBIN A1C; BLOOD Rian. Date: 01/12/24 14:12 06/19/23 14:40 Test Name Result Units Range HEMOGLOBIN A1C 12.3 H 11.7 H % 4.0 - 5.6 Current Rx with last BCVA: OD -7.25 -0.25 x 040 OS -7.50 -0.50 x 170 Add: +1.50 DVA ( )sc ( x )cc CL OD 20/25+1 OS 20/20-1 Pupils: PERRL (-)APD EOM: Full all meridia OU, (-) pain/diplopia Confrontation Visual [place]: Full all meridia OU Subjective: OD -7.25 -0.75 x 040 20/20 OS -7.75 -0.75 x 170 20/20 Add: +1.75 20/20 OU SLE: Lids/Lashes: clear OU Conjunctiva: white and quiet OU - OD injected especially inferior temp with CL taken out Corneas: pannus greatest superiorly OU, CL with good centration and movement OU Iris: flat and clear OU (-)NVI OU Anterior Chamber: deep and quiet OU Angles: open OU Lens: clear OU TAP @ 3:57pm OD 10 mm Hg OS 10 mm Hg Dilating Drops: 1 gtt 1% [...] retinopathy or macular edema OU. Last A1c 12.3 a year ago - hasn't had updated labs this year. Pt ed on findings and importance of good blood glucose control - encouraged to reschedule PCP appt for this summer. Monitor annually 2. Dry eye OU - continue gel drops prn 3. choroidal nevus OD - stable, no concerning characteristics. Monitor 4. myopia OU, regular astigmatism OU, presbyopia OU - order new DVO and NVO 5. Contact lens wear - pt encouraged to be seen in community for contact lens exam at his own expense RTC 1 year or earlier PRN Total time: 30 minutes *This includes time spent before the visit reviewing the chart, time spent during visit (not including procedures coded separately), and time spent on documentation after the visit on the same date of service. Patient Education: Diabetes: Patient was educated regarding [...] (local) and dispensed from another [place] or [facility] facility (remote) as well as inpatient [...] Remote Allergy/ADR Data available for this patient [facility] [place] [facility] TREE NUTS Med Recon NoGlossary (Tool #1) INCLUDED IN THIS LIST: Alphabetical list of active outpatient prescriptions dispensed from this [facility] (local) and dispensed from another [place] or [facility] facility (remote) as well as inpatient orders (local pending and active), local clinic medications, locally documented non-VA medications, and local prescriptions that have or been discontinued in the past 90 days. Non-VA Meds Last Documented On: February 24, 2021 NOTE The display of VA prescriptions dispensed from another [place] or [facility] facility (remote) is limited to active outpatient prescription entries matched to National Drug File at the originating site and may not include some items such as investigational drugs, compounds, etc. NOT INCLUDED IN THIS LIST: Medications self-entered by the patient into personal health records (i.e. [employer]) are NOT included in this list. Non-VA medications documented outside this [place], remote inpatient orders (regardless of status) and remote clinic medications are NOT included in this list. The patient and provider must always discuss medications the patient is taking, regardless of where the medication was dispensed or obtained. -------- OUTPT CARBOXYMETHYLCELLULOSE NA 1% OPH GEL (Status = Active) APPLY 1 DROP INTO EACH EYE TWICE DAILY NEEDED FOR DRY EYE Rx# [id number] Last Released: 08/05/24 Qty/Days Supply: Rx Expiration Date: 02/01/25 Refills Remainin Indication: FOR DRY EYE OUTPT CARBOXYMETHYLCELLULOSE NA 1% OPH GEL (Status = Pending) APPLY 1 DROP INTO EACH EYE TWICE DAILY NEEDED FOR DRY EYE Renewed from Rx# [id number] Qty/Days Supply: Login Date: 01/27/25 Refills Ordered: 5 OUTPT CYCLOBENZAPRINE HCL 10MG TAB (Status = ) TAKE ONE TABLET BY MOUTH THREE TIMES DAILY NEEDED - DO NOT TAKE AT BEDTIME DUE TO UNTREATED SEVERE SLEEP APNEA, MAY CAUSE SEVERE DROWSINESS Rx# [id number] Last Released: 01/15/24 Qty/Days Supply: Rx Expiration Date: 01/12/25 Refills Remainin Indication: FOR MUSCLE SPASM OUTPT EMPAGLIFLOZIN 25MG TAB (Status = Active) TAKE ONE TABLET BY MOUTH ONCE DAILY Rx# [id number] Last Released: 11/21/24 Qty/Days Supply: Rx Expiration Date: 02/23/25 Refills Remainin Indication: FOR TYPE 2 DIABETES MELLITUS OUTPT FLUTICASONE PROP 50MCG 120D NASAL INHL (Status = Active) INSTILL 2 SPRAYS INTO EACH NOSTRIL ONCE DAILY FOR NASAL IRRITATION/INFLAMMATION Rx# [id number] Last Released: 11/21/24 Qty/Days Supply: Rx Expiration Date: 02/06/25 Refills Remainin Indication: FOR NASAL IRRITATION/INFLAMMATION Non-VA IBUPROFEN 400MG TAB TAKE ONE TABLET BY MOUTH THREE TIMES DAILY NEEDED Patient wants to buy from Non-VA pharmacy. OUTPT LIDOCAINE 5% PATCH (Status = ) APPLY 3 PATCH 5% TOPICALLY ONCE DAILY NEEDED DIRECTED - MAY APPLY 3 PATCHES FOR 12 HOURS, THEN REMOVE ALL PATCHES FOR 12 HOURS Rx# [id number] Last Released: 08/06/24 Qty/Days Supply: Rx Expiration Date: 01/12/25 Refills Remainin Indication: FOR NERVE PAIN OUTPT LORATADINE 10MG TAB (Status = Active) TAKE ONE TABLET BY MOUTH ONCE DAILY FOR SNEEZING Rx# [id number] Last Released: 08/05/24 Qty/Days Supply: Rx Expiration Date: 02/06/25 Refills Remainin Indication: FOR SNEEZING OUTPT SEMAGLUTIDE 0.25MG/0.375ML INJ PEN 3ML (Status = Active) INJECT 0.25MG SUBCUTANEOUSLY ONCE A WEEK FOR TYPE 2 DIABETES MELLITUS Rx# [id number] Last Released: 05/13/24 Qty/Days Supply: 11/21 Rx Expiration Date: 02/23/25 Refills Remainin Indication: FOR TYPE 2 DIABETES MELLITUS OUTPT TRAZODONE HCL 100MG TAB (Status = Active) TAKE ONE TABLET BY MOUTH AT BEDTIME NEEDED FOR INSOMNIA ASSOCIATED WITH DEPRESSION Rx# [id number] Last Released: 12/25/24 Qty/Days Supply: Rx Expiration Date: 09/10/25 Refills Remainin Indication: FOR INSOMNIA ASSOCIATED WITH DEPRESSION -------- SUPPLIES -------- /dorcas/ TRINIDAD DUNCAN OD Power Reactor Operator Signed: 01/27/2025 16:35 TRINIDAD DUNCAN [place] [facility] Jan 27, 2025 03:40 PM OPTOMETRY NOTE: LOCAL TITLE: OPTOMETRY NOTE STANDARD TITLE: OPTOMETRY NOTE DATE OF NOTE: JAN 27, 2025@15:40 ENTRY DATE: JAN 27, 2025@15:40:44 AUTHOR: TRINIDAD DUNCAN EXP COSIGNER: URGENCY: STATUS: COMPLETED OPTOMETRY NOTE Has ADDENDA 44 WHITE MALE NOT OR Last eye exam: 01/31/22 Reason for Visit/CC: patient here for a comprehensive eye exam. 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 Type II diabetes without retinopathy or macular edema OU 2. Dry eye OU 3. Ptosis OS>OD 4. choroidal nevus OD 5. h/o mTBI 6. myopia OU, regular astigmatism OU, presbyopia OU 7. Contact lens wear (-) Pain: (-) MARTINO: (-) Diplopia: (-) Flashes: (-) Floaters: (-) Amaurosis Fugax/Tia's: (-) Eye Injury: (-) Eye Surgery: (-) TBI (-) FOHx: MHx: Code Description E55.9 Vitamin D Deficiency ([facility] [id number]) R80.9 Microalbuminuria ([facility] 285513949) M54.2 Neck pain ([facility] 50427986) M54.9 Back pain ([facility] 425116907) S06.0X0A Concussion with no loss of consciousness ([facility] 17094619) N52.9 Erectile Dysfunction ([facility] 357850284) B37.42 Candidal balanitis ([facility] 97725142) F43.10 Posttraumatic stress disorder ([facility] 00362915) G47.33 Obstructive sleep apnea syndrome ([facility] 24547159) R16.1 Splenomegaly ([facility] 56856447) Z86.16 History of SARS-CoV-2 ([facility] [id number]) F90.2 Attention deficit hyperactivity disorder ([facility] 444273203) E11.9 Diabetes mellitus ([facility] 10853782) F51.05 Insomnia ([facility] 143584338) D71. Chronic granulomatous disease ([facility] 859999011) E78.5 HLD - Hyperlipidemia ([facility] 27870328) E66.8 Obesity ([facility] 859916418) Other: SYSTEMIC MEDICATIONS/OCULAR MEDICATIONS: Active and Recently Outpatient Medications (excluding Supplies): Active Outpatient Medications Status 1) CARBOXYMETHYLCELLULOSE NA 1% OPH GEL APPLY 1 DROP INTO EACH ACTIVE EYE TWICE DAILY NEEDED Indication: FOR DRY EYE 2) EMPAGLIFLOZIN 25MG TAB TAKE ONE TABLET BY MOUTH ONCE DAILY ACTIVE Indication: FOR TYPE 2 DIABETES MELLITUS 3) FLUTICASONE PROP 50MCG 120D NASAL INHL INSTILL 2 SPRAYS INTO ACTIVE EACH NOSTRIL ONCE DAILY Indication: FOR NASAL IRRITATION/INFLAMMATION 4) LORATADINE 10MG TAB TAKE ONE TABLET BY MOUTH ONCE DAILY ACTIVE Indication: FOR SNEEZING 5) SEMAGLUTIDE 0.25MG/0.375ML INJ PEN 3ML INJECT 0.25MG ACTIVE SUBCUTANEOUSLY ONCE A WEEK Indication: FOR TYPE 2 DIABETES MELLITUS 6) TRAZODONE HCL 100MG TAB TAKE ONE TABLET BY MOUTH AT BEDTIME ACTIVE NEEDED Indication: FOR INSOMNIA ASSOCIATED WITH DEPRESSION Inactive Outpatient Medications Status 1) CYCLOBENZAPRINE HCL 10MG TAB TAKE ONE TABLET BY MOUTH THREE TIMES DAILY NEEDED - DO NOT TAKE AT BEDTIME DUE TO UNTREATED SEVERE SLEEP APNEA, MAY CAUSE SEVERE DROWSINESS Indication: FOR MUSCLE SPASM 2) LIDOCAINE 5% PATCH APPLY 3 PATCH 5% TOPICALLY ONCE DAILY NEEDED DIRECTED - MAY APPLY 3 PATCHES FOR 12 HOURS, THEN REMOVE ALL PATCHES FOR 12 HOURS Indication: FOR NERVE PAIN Active Non-VA Medications Status 1) Non-VA IBUPROFEN 400MG TAB 400MG BY MOUTH THREE TIMES DAILY ACTIVE NEEDED 9 Total Medications ALLERGIES: TREE NUTS LAST BP: 120/80 (05/06/2024 08:42) PERTINENT LABS: HEMOGLOBIN A1C; BLOOD Rian. Date: 01/12/24 14:12 06/19/23 14:40 Test Name Result Units Range HEMOGLOBIN A1C 12.3 H 11.7 H % 4.0 - 5.6 Current Rx with last BCVA: OD -7.25 -0.25 x 040 OS -7.50 -0.50 x 170 Add: +1.50 DVA ( )sc ( x )cc CL OD 20/25+1 OS 20/20-1 Pupils: PERRL (-)APD EOM: Full all meridia OU, (-) pain/diplopia Confrontation Visual [place]: Full all meridia OU Subjective: OD -7.25 -0.75 x 040 20/20 OS -7.75 -0.75 x 170 20/20 Add: +1.75 20/20 OU SLE: Lids/Lashes: clear OU Conjunctiva: white and quiet OU - OD injected especially inferior temp with CL taken out Corneas: pannus greatest superiorly OU, CL with good centration and movement OU Iris: flat and clear OU (-)NVI OU Anterior Chamber: deep and quiet OU Angles: open OU Lens: clear OU TAP @ 3:57pm OD 10 mm Hg OS 10 mm Hg Dilating Drops: 1 gtt 1% [...] retinopathy or macular edema OU. Last A1c 12.3 a year ago - hasn't had updated labs this year. Pt ed on findings and importance of good blood glucose control - encouraged to reschedule PCP appt for this summer. Monitor annually 2. Dry eye OU - continue gel drops prn 3. choroidal nevus OD - stable, no concerning characteristics. Monitor 4. myopia OU, regular astigmatism OU, presbyopia OU - order new DVO and NVO 5. Contact lens wear - pt encouraged to be seen in community for contact lens exam at his own expense RTC 1 year or earlier PRN Total time: 30 minutes *This includes time spent before the visit reviewing the chart, time spent during visit (not including procedures coded separately), and time spent on documentation after the visit on the same date of service. Patient Education: Diabetes: Patient was educated regarding [...] Allergy/ADR Data available for this patient [place] [facility] [place] [facility] TREE NUTS Med Recon NoGlossorgas (Tool #1) INCLUDED IN THIS LIST: Alphabetical [...] the patient into personal health records (i.e. [employer]) are NOT included in this list. Non-VA medications documented outside this [place], remote inpatient orders (regardless of status) and remote clinic medications are NOT included in this list. The patient and provider must always discuss medications the patient is taking, regardless of where the medication was dispensed or obtained. -------- OUTPT CARBOXYMETHYLCELLULOSE NA 1% OPH GEL (Status = Active) APPLY 1 DROP INTO EACH EYE TWICE DAILY NEEDED FOR DRY EYE Rx# [id number] Last Released: 08/05/24 Qty/Days Supply: Rx Expiration Date: 02/01/25 Refills Remainin Indication: FOR DRY EYE OUTPT CARBOXYMETHYLCELLULOSE NA 1% OPH GEL (Status = Pending) APPLY 1 DROP INTO EACH EYE TWICE DAILY NEEDED FOR DRY EYE Renewed from Rx# [id number] Qty/Days Supply: Login Date: 01/27/25 Refills Ordered: 5 OUTPT CYCLOBENZAPRINE HCL 10MG TAB (Status = ) TAKE ONE TABLET BY MOUTH THREE TIMES DAILY NEEDED - DO NOT TAKE AT BEDTIME DUE TO UNTREATED SEVERE SLEEP APNEA, MAY CAUSE SEVERE DROWSINESS Rx# [id number] Last Released: 01/15/24 Qty/Days Supply: Rx Expiration Date: 01/12/25 Refills Remainin Indication: FOR MUSCLE SPASM OUTPT EMPAGLIFLOZIN 25MG TAB (Status = Active) TAKE ONE TABLET BY MOUTH ONCE DAILY Rx# [id number] Last Released: 11/21/24 Qty/Days Supply: Rx Expiration Date: 02/23/25 Refills Remainin Indication: FOR TYPE 2 DIABETES MELLITUS OUTPT FLUTICASONE PROP 50MCG 120D NASAL INHL (Status = Active) INSTILL 2 SPRAYS INTO EACH NOSTRIL ONCE DAILY FOR NASAL IRRITATION/INFLAMMATION Rx# [id number] Last Released: 11/21/24 Qty/Days Supply: Rx Expiration Date: 02/06/25 Refills Remainin Indication: FOR NASAL IRRITATION/INFLAMMATION Non-VA IBUPROFEN 400MG TAB TAKE ONE TABLET BY MOUTH THREE TIMES DAILY NEEDED Patient wants to buy from Non-VA pharmacy. OUTPT LIDOCAINE 5% PATCH (Status = ) APPLY 3 PATCH 5% TOPICALLY ONCE DAILY NEEDED DIRECTED - MAY APPLY 3 PATCHES FOR 12 HOURS, THEN REMOVE ALL PATCHES FOR 12 HOURS Rx# [id number] Last Released: 08/06/24 Qty/Days Supply: Rx Expiration Date: 01/12/25 Refills Remainin Indication: FOR NERVE PAIN OUTPT LORATADINE 10MG TAB (Status = Active) TAKE ONE TABLET BY MOUTH ONCE DAILY FOR SNEEZING Rx# [id number] Last Released: 08/05/24 Qty/Days Supply: Rx Expiration Date: 02/06/25 Refills Remainin Indication: FOR SNEEZING OUTPT SEMAGLUTIDE 0.25MG/0.375ML INJ PEN 3ML (Status = Active) INJECT 0.25MG SUBCUTANEOUSLY ONCE A WEEK FOR TYPE 2 DIABETES MELLITUS Rx# [id number] Last Released: 05/13/24 Qty/Days Supply: 11/21 Rx Expiration Date: 02/23/25 Refills Remainin Indication: FOR TYPE 2 DIABETES MELLITUS OUTPT TRAZODONE HCL 100MG TAB (Status = Active) TAKE ONE TABLET BY MOUTH AT BEDTIME NEEDED FOR INSOMNIA ASSOCIATED WITH DEPRESSION Rx# [id number] Last Released: 12/25/24 Qty/Days Supply: Rx Expiration Date: 09/10/25 Refills Remainin Indication: FOR INSOMNIA ASSOCIATED WITH DEPRESSION -------- SUPPLIES -------- /dorcas/ TRINIDAD DUNCAN OD Power Reactor Operator Signed: 01/27/2025 16:35 01/27/2025 ADDENDUM STATUS: COMPLETED please assist in ordering duplicate glasses: RX INFORMATION OD -5.50 -0.75 X40 Add:0.00 Pzm:0.00 Dir: Prz2:0.00 Dir2: OS -6.00 -0.75 X170 Add:0.00 Pzm:0.00 Dir: Prz2:0.00 Dir2: FITTING INFORMATION FPD: NPD: Piatt:R:32.5 L:33.5 SEG HT:R: L: Tint:None Shade:None [place] Billable Items FRAME: US59 BLACK [id number] Right Lens: 1.67 SINGLE VISION 1.67 HIGH INDEX Left Lens: 1.67 SINGLE VISION 1.67 HIGH INDEX KLEAR ANTI-REFLECTIVE COATING RX INFORMATION OD -7.25 -0.75 X40 Add:0.00 Pzm:0.00 Dir: Prz2:0.00 Dir2: OS -7.75 -0.75 X170 Add:0.00 Pzm:0.00 Dir: Prz2:0.00 Dir2: FITTING INFORMATION FPD: NPD: Piatt:R:32.5 L:33.5 SEG HT:R: L: Tint:None Shade:None [place] Billable Items FRAME: US59 VILMA CALHOUN [id number] Right Lens: 1.67 SINGLE VISION 1.67 HIGH INDEX Left Lens: 1.67 SINGLE VISION 1.67 HIGH INDEX KLEAR ANTI-REFLECTIVE COATING /dorcas/ TRINIDAD DUNCAN OD Power Reactor Operator Signed: 01/27/2025 16:45 Receipt Acknowledged By: 01/29/2025 12:48 /dorcas/ CASS MCCOLLUM OPTOMETRY TECH 01/29/2025 ADDENDUM STATUS: COMPLETED Optometry [facility] [employer]uitline Counselor ordered patient 2 pair(s) of SV eyeglasses on 01/27/2025 as directed by provider. OPT HT entered consult(s) for order on behalf of provider. /dorcas/ CASS MCCOLLUM OPTOMETRY TECH Signed: 01/29/2025 12:52 TRINIDAD DUNCAN [facility]
[2025-01-29 18:46] VITALS: BP 126/75; PULSE 84; RESP 18; TEMP 37.2; O2SAT 94
== END 2025-01-29 18:47 | disposition home or self-care (01) ==
PROVIDERS: Emergency Provider Emergency Medicine; PCP Nurse Practitioner Women's Health
DX: S83.91XA Sprain of unspecified site of right knee, initial encounter (principal); M25.561 Pain in right knee; W01.0XXA Fall on same level from slipping, tripping and stumbling without subsequent striking against object, initial encounter; Y93.K1 Activity, walking an animal; Y92.480 Sidewalk as the place of occurrence of the external cause; Y99.8 Other external cause status
CPT/HCPCS: 29505; 73562; 99283

== ENCOUNTER → 2025-01-29 15:41 | Outpatient (BNV) | payer OTHER, SELFPAY | PROVIDERS: PCP Nurse Practitioner Women's Health; Visit Provider Radiology Diagnostic Radiology | DX: M25.561 Pain in right knee (principal) | CPT/HCPCS: 73562 ==

== ENCOUNTER 2025-03-14 15:20 | Outpatient (REF) | payer OTHER, SELFPAY ==
--- NOTE | ~2025-03-14 | CT_ITS ---
CLINICAL HISTORY: R91.8 - Other nonspecific abnormal finding of lung field CT chest without contrast Comparison: None Findings: The heart is normal size. The visualized thyroid and mediastinum are unremarkable. There is hepatic steatosis. There is a 4 mm nodule in the right middle lobe on image number 88 of series number 5. There is a 3 mm pleural-based nodule in the right middle lobe on image number 98 of series 5. 5 mm nodule is seen in the right lower lobe on image number 92 of series 5. 7 mm nodule seen in the lingular segment on image number 95. 3 mm nodule is seen in the left lower lobe on image number. 6 mm nodule is seen in the left lower lobe on image number. The visualized upper abdomen is unremarkable. The bones are intact. IMPRESSION: 1. Multiple bilateral pulmonary nodules likely benign. According to the Fleischner criteria: 6-8 mm nodules have optional [address] follow-up in low risk, and 6-[address] follow-up followed by 18-[address] follow-up if no change in high risk patients. This document has been electronically signed by: Hayden Yanes MD on 03/18/2025 12:47:53
== END 2025-03-14 15:21 | disposition home or self-care (01) ==
LOC: HO.CT 15:20
PROVIDERS: PCP Hospitalist; Visit Provider Internal Medicine
DX: R91.8 Other nonspecific abnormal finding of lung field (principal)
CPT/HCPCS: 71250

== ENCOUNTER → 2025-03-14 15:22 | Outpatient (BNV) | payer OTHER, SELFPAY | PROVIDERS: PCP Hospitalist; Visit Provider Radiology Diagnostic Radiology | DX: R91.8 Other nonspecific abnormal finding of lung field (principal) | CPT/HCPCS: 71250 ==